=== PATIENT | male | born 1970 | race American Indian/Alaskan Native ===

== ENCOUNTER 2018-01-12 13:37 | Emergency (ER) | payer SELFPAY ==
[2018-01-12 13:47] VITALS: BP 158/78
[2018-01-12 15:15] LABS: Basophils # (Auto) 0.1 K/mm3 (0.0-0.1); Basophils % (Auto) 1.5 % (0.0-1.8); Eosinophils # (Auto) 0.1 K/mm3 (0.0-0.4); Eosinophils % (Auto) 2.4 % (0.0-4.3); Hematocrit 24.2 % (35.5-45.6); Hemoglobin 8.2 gm/dl (11.8-15.2); Lymphocytes # (Auto) 1.6 K/mm3 (1.2-5.4); Lymphocytes % (Auto) 24.8 % (13.4-35.0); Mean Corpuscular HGB Conc 34 % (32-34); Mean Corpuscular Hemoglobin 35 pg (28-32); Mean Corpuscular Volume 102 fl (84-94); Monocytes # (Auto) 0.5 K/mm3 (0.0-0.8); Monocytes % (Auto) 7.9 % (0.0-7.3); Platelet Count 253 K/mm3 (140-440); Red Blood Count 2.37 M/mm3 (3.65-5.03); Red Cell Distribution Width 13.3 % (13.2-15.2)
--- NOTE | 2018-01-12 15:16 | Emergency Department Report ---
HPI - General Chief Complaint: Abdominal Pain Time Seen by Provider: 01/12/18 14:46 - HPI HPI: Patient is a 47-year-old male with a history of hypertension controlled with lisinopril daily who presents to ED complaining of upper abdominal pain 2 weeks. Patient's face and describes pain as a nagging-type pain. Patient states he has also been having loose tarry stools, nonbloody tests of the week ago. Patient states he has no appetite and he gets full just as soon as he starts eating. Patient states he got some relief with [facility] for several hours. He denies fever service shows/chest pain/shortness of breath/dizziness/recent unusual foods. ED Past Medical Hx - Past Medical History Hx Hypertension: Yes - Surgical History Past Surgical History?: No - Social History Smoking Status: Current Every Day Smoker Substance Use Type: None - Medications Home Medications: Home Medications Medication Instructions Recorded Confirmed Last Taken Type HYDROcodone/APAP 5-325 [[place] 2 each PO Q6HR PRN #20 tablet 08/08/14 Unknown Rx 5/325] Lisinopril [Zestril TAB] 20 mg PO QDAY #30 tablet 08/08/14 Unknown Rx Acetaminophen/Codeine [Tylenol 1 tab PO Q6H #10 tab 01/12/18 Unknown Rx /Codeine # 3 tab] Ondansetron [Zofran Odt] 8 mg PO BID #24 tab.rapdis 01/12/18 Unknown Rx ED Review of Systems ROS: Stated complaint: ABD PAIN Other details as noted in HPI Constitutional: denies: chills, fever Eyes: denies: eye pain, eye discharge, vision change ENT: denies: ear pain, throat pain Respiratory: denies: cough, shortness of breath, wheezing Cardiovascular: denies: chest pain, palpitations Endocrine: no symptoms reported Gastrointestinal: nausea, diarrhea. denies: abdominal pain, constipation, hematemesis, hematochezia Genitourinary: denies: urgency, dysuria Musculoskeletal: denies: back pain, joint swelling, arthralgia Skin: denies: rash, lesions Neurological: denies: headache, weakness, paresthesias Psychiatric: denies: anxiety, depression Hematological/Lymphatic: denies: easy bleeding, easy bruising Physical Exam - Physical Exam Vital Signs: Vital Signs 01/12/18 13:45 Temperature 97.9 F Pulse Rate 98 H Respiratory 16 Rate Blood Pressure 158/78 O2 Sat by Pulse 100 Oximetry Physical Exam: GENERAL: Alert and oriented x3, no apparent distress, Normal Gait, atraumatic. HEAD: Head is normocephalic and a-traumatic. MOUTH:Mouth is well hydrated and without lesions. Tonsils nonerythematous or swollen, Uvula midline, Tongue not elevated. Mucous membranes are moist. Posterior pharynx clear, no exudate or lesions. Patent airways. LUNGS: Symetrical with respiration, No wheezing, no rales or crackles, CTAB. HEART: S1, S2 present, regular rate and rhythm without murmur, no rubs, no gallops. Non tender to palpation ABDOMEN: No organomegaly was noted,Positive bowel sounds, soft, and non- distended. Nontender to palpation on all Quadrants, NO CVA tenderness. SKIN: Warm and dry, No lesions, No ulceration or induration present. ED Course Vital Signs 01/12/18 13:45 Temperature 97.9 F Pulse Rate 98 H Respiratory 16 Rate Blood Pressure 158/78 O2 Sat by Pulse 100 Oximetry ED Medical Decision Making - Lab Data Result diagrams: 01/12/18 15:00 01/12/18 15:00 - Radiology Data Radiology results: report reviewed, image reviewed FINAL REPORT EXAM: CT ABDOMEN PELVIS WO CON HISTORY: abd pain COMPARISON: None. TECHNIQUE: Multiple contiguous axial images were obtained from the lung bases to the pubic symphysis without administration of IV contrast. Reformatted sagittal and coronal images were available for review. FINDINGS: Lung bases: Calcified granuloma in the left lung base. Visualized heart and mediastinum: Normal noncontrast appearance. Liver: Scattered calcified granulomas. Spleen: Scattered calcified granulomas. Pancreas: Normal noncontrast appearance. Gallbladder and Biliary Tree: No calcified gallstones. No biliary ductal dilatation. Adrenal glands: Normal. Kidneys: 4 millimeter stone within right renal pelvis. Dilatation of the renal collecting system of the inferior pole of the right kidney versus a 4 millimeter right peripelvic cyst. Normal noncontrast appearance of the left kidney. Bladder: Normal. Pelvic organs: Normal. Bowel: No focal wall thickening. No evidence of obstruction. Normal appendix without surrounding inflammatory change. Diverticulosis of the descending and sigmoid colon without evidence of diverticulitis. Peritoneum: No significant mesenteric adenopathy. No free air or free fluid. Vasculature: Abdominal aorta is normal in caliber without evidence of aneurysm. Scattered atherosclerotic calcifications. Normal noncontrast appearance of the portal venous system and the inferior vena cava. Bones and soft tissues: No suspicious osseous lesions. No acute fracture or dislocation. Soft tissues are normal. IMPRESSION: 1. 4 millimeter stone within the right renal pelvis. Associated dilatation of the renal collecting system of the inferior pole of the right kidney versus less likely right peripelvic cyst. 2. Diverticulosis of the descending and sigmoid colon without evidence of diverticulitis. Transcribed By: ALVIN Dictated By: FALGUNI CABELLO MD Electronically Authenticated By: FALGUNI CABELLO MD Signed Date/Time: 01/12/18 7977 - Medical Decision Making 47-year-old male presents with kidney stones/ ED course: Patient received labs during his ED stay. Labs are within normal limits, slightly elevated and BUN and creatinine otherwise normal results CT scan shows abnormality, see reported above. I discussed his findings with the patient. Patient is well-nourished, he is in no acute or respiratory distress. He reports feeling slightly better. He had no episodes of vomiting in the ED. Discussed patient to follow up with primary care physician as well as GI I discussed the patient's symptoms worsen to return to ED - Differential Diagnosis 1. GERD, 2. Gastritis, 3. Kidney stone 4. Gastroenteritis Critical care attestation.: If time is entered above; I have spent that time in minutes in the direct care of this critically ill patient, excluding procedure time. ED Disposition Clinical Impression: Kidney stone Diverticulosis Qualifiers: Diverticulosis site: diverticulosis of large intestine Disposition: DC-01 TO HOME OR SELFCARE Is pt being admited?: No Does the pt Need Aspirin: No Condition: Stable Instructions: Diverticulosis (ED), Kidney Stones (ED), Diverticulosis Diet (ED) , Flank Pain (ED) Additional Instructions: Follow-up way to [facility] He had been giving [facility] referral. Call and make an appointment to be seen by a hotel front desk agent Take medications as prescribed. If worsening of his symptoms was turned to ED. Prescriptions: Acetaminophen/Codeine [Tylenol /Codeine # 3 tab] 1 tab PO Q6H #10 tab Ondansetron [Zofran Odt] 8 mg PO BID #24 tab.rapdis Referrals: [facility] [Outside] - 3-5 Days [facility] [Outside] - 3-5 Days [facility] [Outside] - 3-5 Days [facility] [Outside] - 3-5 Days Forms: Accompanied Note, Work/School Release Form(ED) Time of Disposition: 17:31
[2018-01-12 15:37] LABS: Albumin 3.7 g/dL (3.9-5)
--- NOTE | 2018-01-12 16:17 | Cat Scan Report ---
FINAL REPORT EXAM: CT ABDOMEN PELVIS WO CON HISTORY: abd pain COMPARISON: None. TECHNIQUE: Multiple contiguous axial images were obtained from the lung bases to the pubic symphysis without administration of IV contrast. Reformatted sagittal and coronal images were available for review. FINDINGS: Lung bases: Calcified granuloma in the left lung base. Visualized heart and mediastinum: Normal noncontrast appearance. Liver: Scattered calcified granulomas. Spleen: Scattered calcified granulomas. Pancreas: Normal noncontrast appearance. Gallbladder and Biliary Tree: No calcified gallstones. No biliary ductal dilatation. Adrenal glands: Normal. Kidneys: 4 millimeter stone within right renal pelvis. Dilatation of the renal collecting system of the inferior pole of the right kidney versus a 4 millimeter right peripelvic cyst. Normal noncontrast appearance of the left kidney. Bladder: Normal. Pelvic organs: Normal. Bowel: No focal wall thickening. No evidence of obstruction. Normal appendix without surrounding inflammatory change. Diverticulosis of the descending and sigmoid colon without evidence of diverticulitis. Peritoneum: No significant mesenteric adenopathy. No free air or free fluid. Vasculature: Abdominal aorta is normal in caliber without evidence of aneurysm. Scattered atherosclerotic calcifications. Normal noncontrast appearance of the portal venous system and the inferior vena cava. Bones and soft tissues: No suspicious osseous lesions. No acute fracture or dislocation. Soft tissues are normal. IMPRESSION: 1. 4 millimeter stone within the right renal pelvis. Associated dilatation of the renal collecting system of the inferior pole of the right kidney versus less likely right peripelvic cyst. 2. Diverticulosis of the descending and sigmoid colon without evidence of diverticulitis.
[2018-01-12 16:34] LABS: Amorphous Crystals,Urine Few; Bilirubin,Urine NEG (Negative); Blood,Urine SM (Negative); Color,Urine Yellow (Yellow); Mucus,Urine FEW /HPF; Protein,Urine >500 mg/dL (Negative); Urobilinogen,Urine < 2.0 mg/dL (<2.0)
== END 2018-01-12 18:25 | disposition home or self-care (01) ==
LOC: ED 13:37
DX: K57.90 Diverticulosis of intestine, part unspecified, without perforation or abscess without bleeding (principal); N20.0 Calculus of kidney; I10 Essential (primary) hypertension; F17.200 Nicotine dependence, unspecified, uncomplicated
CPT/HCPCS: 36415; 74176; 80053; 81001; 85025; 99284

== ENCOUNTER 2019-02-04 07:26 | Emergency (ER) | payer MEDICARE ==
[2019-02-04 07:40] VITALS: BP 141/77
[2019-02-04 08:01] LABS: Basophils # (Auto) 0.1 K/mm3 (0.0-0.1); Basophils % (Auto) 2.4 % (0.0-1.8); Eosinophils % (Auto) 1.1 % (0.0-4.3); Hematocrit 34.7 % (35.5-45.6); Hemoglobin 11.9 gm/dl (11.8-15.2); Lymphocytes # (Auto) 1.8 K/mm3 (1.2-5.4); Lymphocytes % (Auto) 44.3 % (13.4-35.0); Mean Corpuscular HGB Conc 34 % (32-34); Mean Corpuscular Volume 104 fl (84-94); Monocytes # (Auto) 0.3 K/mm3 (0.0-0.8); Monocytes % (Auto) 7.7 % (0.0-7.3); Platelet Count 172 K/mm3 (140-440); Red Blood Count 3.34 M/mm3 (3.65-5.03)
[2019-02-04 08:24] LABS: Albumin 4.5 g/dL (3.9-5)
--- NOTE | 2019-02-04 08:39 | Emergency Department Report ---
ED General Adult HPI - General Chief complaint: Weakness Stated complaint: GENERAL ILLNESS,RT SIDE PAIN Time Seen by Provider: 02/04/19 08:17 Source: patient, EMS Mode of arrival: Stretcher Limitations: No Limitations - History of Present Illness Initial comments: Mr Escobar is a pleasant 48-year-old -[place] male who comes to the ER today from his dialysis clinic. He presented to dialysis but told them of a fall yesterday so they sent him to the ER. He's complaining of right shoulder pain. He denies fever, chills, chest pain, abd pain. He was ambulatory to ER and it has been 24 hours since fall. He states that he did not have any signs of illness prior to the fall. But since he fell he is associating some nausea with the fall. Pt did not get HD this AM- last HD on Friday. He has been on HD 1 year and states he does follow the renal diet. He has had weight loss since going on HD. I suspect his nausea is related to his ESRD. On exam he had been in ER for over 1 h and has had no vomiting. At time of fall he did not hit his head. Fall was witnessed. He was attempting to turn to switch on in the attic for the heater when the ceiling that he was on fell. Patient states that he fell about 6 feet landing on his right shoulder. He has full range of motion, is ambulatory and vital signs are stable. He states that he is really just concerned that he hurt his AV fistula which is in the right arm. - Related Data Home Medications Medication Instructions Recorded Confirmed Last Taken amLODIPine 10 mg PO DAILY 01/22/18 01/22/18 Unknown hydroCHLOROthiazide [HCTZ] 25 mg PO QDAY 01/22/18 01/22/18 Unknown Previous Rx's Medication Instructions Recorded Last Taken Type Lisinopril [Zestril TAB] 20 mg PO QDAY #30 tablet 08/08/14 Unknown Rx Calcium Acetate [Phoslo] 1,334 mg PO TIDWM #60 capsule 01/28/18 Unknown Rx Nicotine [Habitrol] 21 mg TD DAILY #30 patch 01/28/18 Unknown Rx Pantoprazole [Protonix TAB] 40 mg PO BID #60 tablet 01/28/18 Unknown Rx hydrALAZINE [Apresoline TAB] 50 mg PO Q8HR #90 tablet 01/28/18 Unknown Rx Allergies Allergy/AdvReac Type Severity Reaction Status Date / Time No Known Allergies Allergy Verified 01/12/18 13:45 ED Review of Systems ROS: Stated complaint: GENERAL ILLNESS,RT SIDE PAIN Other details as noted in HPI Comment: All other systems reviewed and negative ED Past Medical Hx - Past Medical History Previous Medical History?: Yes Hx Hypertension: Yes Hx CVA: No Hx Heart Attack/AMI: No Hx Congestive Heart Failure: No Hx Diabetes: No Hx Deep Vein Thrombosis: No Hx Pulmonary Embolism: No Hx GERD: Yes Hx Liver Disease: No Hx Renal Disease: Yes (ARF-HD 2017) Hx of Cancer: No Hx Sickle Cell Disease: No Hx Arthritis: No Hx Headaches / Migraines: No Hx Seizures: No Hx Kidney Stones: No Hx Psychiatric Treatment: No Hx Asthma: No Hx COPD: No Hx Tuberculosis: No Hx Dementia: No Hx HIV: No Additional medical history: sleep apnea, diverticulitis - Surgical History Past Surgical History?: Yes Additional Surgical History: fistula right upper arm - Family History Family history: no significant - Social History Smoking Status: Current Every Day Smoker Substance Use Type: None - Medications Home Medications: Home Medications Medication Instructions Recorded Confirmed Last Taken Type Lisinopril [Zestril TAB] 20 mg PO QDAY #30 tablet 08/08/14 01/22/18 Unknown Rx amLODIPine 10 mg PO DAILY 01/22/18 01/22/18 Unknown History hydroCHLOROthiazide [HCTZ] 25 mg PO QDAY 01/22/18 01/22/18 Unknown History Calcium Acetate [Phoslo] 1,334 mg PO TIDWM #60 capsule 01/28/18 Unknown Rx Nicotine [Habitrol] 21 mg TD DAILY #30 patch 01/28/18 Unknown Rx Pantoprazole [Protonix TAB] 40 mg PO BID #60 tablet 01/28/18 Unknown Rx hydrALAZINE [Apresoline TAB] 50 mg PO Q8HR #90 tablet 01/28/18 Unknown Rx ED Physical Exam - General Limitations: No Limitations General appearance: alert, in no apparent distress - Head Head exam: Present: atraumatic, normocephalic - Eye Eye exam: Present: normal appearance - ENT ENT exam: Present: mucous membranes moist - Neck Neck exam: Present: normal inspection - Respiratory Respiratory exam: Present: normal lung sounds bilaterally. Absent: respiratory distress - Cardiovascular Cardiovascular Exam: Present: regular rate, normal rhythm, other (no edema/no jvd). Absent: bradycardia, tachycardia, systolic murmur, diastolic murmur, rubs, gallop, S4 - GI/Abdominal GI/Abdominal exam: Present: soft, normal bowel sounds. Absent: distended, tenderness, guarding, rebound, rigid, diminished bowel sounds, hyperactive bowel sounds, hypoactive bowel sounds - Rectal Rectal exam: Present: deferred - Extremities Exam Extremities exam: Present: normal inspection - Back Exam Back exam: Present: normal inspection, full ROM, other (no spine tenderness) - Neurological Exam Neurological exam: Present: alert, oriented X3, CN II-XII intact, normal gait - Psychiatric Psychiatric exam: Present: normal affect, normal mood - Skin Skin exam: Present: warm, dry, intact, normal color, other (RA fistula, mature, with thrill and bruit). Absent: rash ED Course Vital Signs 02/04/19 02/04/19 07:34 07:37 Temperature 98.5 F 98.4 F Pulse Rate 67 67 Respiratory 17 18 Rate Blood Pressure 141/77 141/77 O2 Sat by Pulse 94 94 Oximetry - Reevaluation(s) Reevaluation #1: 02/04/19 0845 on re-exam pt sleeping 0910 VSS no n/v while in ED Reevaluation #2: 02/04/19 09:21 no complaints dc to HD ED Medical Decision Making - Lab Data Result diagrams: 02/04/19 07:51 02/04/19 07:51 - Radiology Data Radiology results: report reviewed, image reviewed - Medical Decision Making Vital Signs 02/04/19 02/04/19 07:34 07:37 Temperature 98.5 F 98.4 F Pulse Rate 67 67 Respiratory 17 18 Rate Blood Pressure 141/77 141/77 O2 Sat by Pulse 94 94 Oximetry Lab Results 02/04/19 02/04/19 Range/Units 07:51 07:51 WBC 4.1 L (4.5-11.0) K/mm3 RBC 3.34 L (3.65-5.03) M/mm3 Hgb 11.9 (11.8-15.2) gm/dl Hct 34.7 L (35.5-45.6) % MCV 104 H (84-94) fl MCH 36 H (28-32) pg MCHC 34 (32-34) % RDW 14.0 (13.2-15.2) % Plt Count 172 (140-440) K/mm3 Lymph % (Auto) 44.3 H (13.4-35.0) % Gilliam % (Auto) 7.7 H (0.0-7.3) % Eos % (Auto) 1.1 (0.0-4.3) % Baso % (Auto) 2.4 H (0.0-1.8) % Lymph # 1.8 (1.2-5.4) K/mm3 Gilliam # 0.3 (0.0-0.8) K/mm3 Eos # 0.0 (0.0-0.4) K/mm3 Baso # 0.1 (0.0-0.1) K/mm3 Seg Neutrophils % 44.5 (40.0-70.0) % Seg Neutrophils # 1.8 (1.8-7.7) K/mm3 Sodium 139 (137-145) mmol/L Potassium 3.5 L (3.6-5.0) mmol/L Chloride 94.4 L (98-107) mmol/L Carbon Dioxide 23 (22-30) mmol/L Anion Gap 25 mmol/L BUN 49 H (9-20) mg/dL Creatinine 12.3 H (0.8-1.5) mg/dL Estimated GFR 5 ml/min BUN/Creatinine Ratio 4 % Glucose 91 (75-100) mg/dL Calcium 10.0 (8.4-10.2) mg/dL Total Bilirubin 0.40 (0.1-1.2) mg/dL AST 15 (5-40) units/L ALT 9 (7-56) units/L Alkaline Phosphatase 33 L (35-129) units/L Total Protein 8.2 (6.3-8.2) g/dL Albumin 4.5 (3.9-5) g/dL Albumin/Globulin Ratio 1.2 % HD clinic sent pt to ER secondary to his fall yesterday and his co ra pain. Full ROM arm AV fistula with thrill and bruit; distal pulses plus 2 No edema/jvd BP normal/ no tachycardia Pt can get HD today p seen in ER. He last had HD on Friday. labs noted discussed with pt role of his diet and his nausea- I suspect the uremia and elevated Cr are the source of nausea. Pt will discuss his clearance with HD clinic today. Pt given tylenol for shoulder soreness [address] Mitchell Pt will be dc to HD clinic for his HD. He will follow up with renal MD and PCP. Pt reassured AV fistula is ok. Pt verbalizes understanding of dc plan of care and follow up. - Differential Diagnosis ro shoulder injury; eval cr/K Critical care attestation.: If time is entered above; I have spent that time in minutes in the direct care of this critically ill patient, excluding procedure time. ED Disposition Clinical Impression: ESRD (end stage renal disease) on dialysis, Fall, Shoulder pain, Uremia Disposition: DC-01 TO HOME OR SELFCARE Is pt being admited?: No Does the pt Need Aspirin: No Condition: Stable Instructions: Chronic Kidney Disease (ED) Additional Instructions: GO TO HD CLINIC FOR YOUR TREATMENT XRAY SHOULDER NORMAL FOLLOW UP WITH KIDNEY MED REGARDING NAUSEA RENAL DIET CONTINUE HOME MEDS Referrals: [facility] [Outside] - 3-5 Days Time of Disposition: 08:53
[2019-02-04] MEDS ORDERED: ACETAMINOPHEN 500 MG TAB PO ONE (08:58)
--- NOTE | 2019-02-04 09:15 | XRay Report ---
RIGHT SHOULDER, 3 VIEWS INDICATION: pain sp fall. COMPARISON: None. IMPRESSION: No acute osseous or soft tissue abnormality. Mild osteoarthritic changes are identifi ed at the AC joint and glenohumeral joint. Signer Name: Nathan Handy Jr, MD Signed: 02/04/2019 9:11 AM Workstation Name: [id number]
== END 2019-02-04 09:30 | disposition home or self-care (01) ==
LOC: ED 07:26
DX: I12.0 Hypertensive chronic kidney disease with stage 5 chronic kidney disease or end stage renal disease (principal); N18.6 End stage renal disease; M25.511 Pain in right shoulder; Z99.2 Dependence on renal dialysis; K21.9 Gastro-esophageal reflux disease without esophagitis; G47.30 Sleep apnea, unspecified; F17.200 Nicotine dependence, unspecified, uncomplicated; Z79.899 Other long term (current) drug therapy
CPT/HCPCS: 36415; 80053; 85025; 99284

== ENCOUNTER 2019-03-10 19:09 | Emergency (ER) | payer MEDICARE ==
[2019-03-10 19:45] VITALS: BP 175/85
--- NOTE | 2019-03-10 19:48 | Emergency Department Report ---
Blank Doc - Documentation Documentation: 48-year-old male that presents with URI/Flu symptoms. This initial assessment/diagnostic orders/clinical plan/treatment(s) is/are subject to change based on patient's health status, clinical progression and re- assessment by fellow clinical providers in the ED. Further treatment and workup at subsequent clinical providers discretion. Patient/guardians urged not to elope from the ED as their condition may be serious if not clinically assessed and managed. Initial orders include: 1- Patient sent to [facility] for further evaluation and treatment 2- cxr 3- flu swab
--- NOTE | 2019-03-10 21:02 | XRay Report ---
CHEST 1 VIEW 1808 INDICATION / CLINICAL INFORMATION: cough. COMPARISON: 01/26/2018 FINDINGS: SUPPORT DEVICES: None HEART / MEDIASTINUM: No significant abnormality. LUNGS / PLEURA: No significant pulmonary or pleural abnormality. No pneumothorax. ADDITIONAL FINDINGS: No significant additional findings. IMPRESSION: No significant acute abnormality Signer Name: Bishop Gooden MD Signed: 03/10/2019 8:57 PM Workstation Name: [id number]
[2019-03-11] MEDS ORDERED: ONDANSETRON 4 MG ODT TAB PO ONE (01:01)
[2019-03-11] MEDS ORDERED: IBUPROFEN 800 MG TAB PO ONE (01:01)
--- NOTE | 2019-03-11 02:07 | Emergency Department Report ---
- General Chief Complaint: Upper Respiratory Infection Stated Complaint: HURTING ALL OVER Time Seen by Provider: 03/10/19 19:47 Source: patient Mode of arrival: Wheelchair Limitations: No Limitations - History of Present Illness Initial Comments: Mr. Escobar is a 48-year-old -British male who presents for cough, bodyaches ,fever, sore throat 2 days. pt has hx of GERD, HTN, and Renal disease. who presents for flu like symptoms MD Complaint: fever, cough, sore throat, rhinorrhea, nasal congestion, sinus pain Onset/Timin -: days(s) Severity: moderate Severity scale (0 -10): 4 Quality: aching Consistency: constant - Related Data Home Medications Medication Instructions Recorded Confirmed Last Taken amLODIPine 10 mg PO DAILY 01/22/18 01/22/18 Unknown hydroCHLOROthiazide [HCTZ] 25 mg PO QDAY 01/22/18 01/22/18 Unknown Previous Rx's Medication Instructions Recorded Last Taken Type Lisinopril [Zestril TAB] 20 mg PO QDAY #30 tablet 08/08/14 Unknown Rx Calcium Acetate [Phoslo] 1,334 mg PO TIDWM #60 capsule 01/28/18 Unknown Rx Nicotine [Habitrol] 21 mg TD DAILY #30 patch 01/28/18 Unknown Rx Pantoprazole [Protonix TAB] 40 mg PO BID #60 tablet 01/28/18 Unknown Rx hydrALAZINE [Apresoline TAB] 50 mg PO Q8HR #90 tablet 01/28/18 Unknown Rx traMADoL [Ultram 50 MG tab] 50 mg PO Q6HR PRN #12 tablet 02/22/19 Unknown Rx ALBUTEROL Inhaler (OR & NICU) 2 puff IH QID PRN #1 each 03/11/19 Unknown Rx [ProAir HFA Inhaler] Azithromycin [Zithromax Z-CASTILLO] 250 mg PO DAILY #6 tab 03/11/19 Unknown Rx Benzonatate [Tessalon Perles] 100 mg PO Q8HR PRN #30 capsule 03/11/19 Unknown Rx Ibuprofen [Motrin 800 MG tab] 800 mg PO Q8HR PRN #30 tablet 03/11/19 Unknown Rx Allergies Allergy/AdvReac Type Severity Reaction Status Date / Time No Known Allergies Allergy Verified 01/12/18 13:45 ED Review of Systems ROS: Stated complaint: HURTING ALL OVER Other details as noted in HPI Constitutional: see HPI, fever, malaise Eyes: denies: eye pain, eye discharge, vision change ENT: ear pain, throat pain Respiratory: cough. denies: shortness of breath, wheezing Cardiovascular: denies: chest pain, palpitations Endocrine: no symptoms reported Gastrointestinal: denies: abdominal pain, nausea, diarrhea Genitourinary: denies: urgency, dysuria Musculoskeletal: denies: back pain, joint swelling, arthralgia Skin: denies: rash, lesions Neurological: denies: headache, weakness, paresthesias Psychiatric: denies: anxiety, depression Hematological/Lymphatic: denies: easy bleeding, easy bruising, swollen glands ED Past Medical Hx - Past Medical History Hx Hypertension: Yes Hx CVA: No Hx Heart Attack/AMI: No Hx Congestive Heart Failure: No Hx Diabetes: No Hx Deep Vein Thrombosis: No Hx Pulmonary Embolism: No Hx GERD: Yes Hx Liver Disease: No Hx Renal Disease: Yes (ARF-HD 2017,,Fri) Hx Sickle Cell Disease: No Hx Arthritis: No Hx Headaches / Migraines: No Hx Seizures: No Hx Kidney Stones: No Hx Psychiatric Treatment: No Hx Asthma: No Hx COPD: No Hx Tuberculosis: No Hx Dementia: No Hx HIV: No Additional medical history: sleep apnea, diverticulitis - Surgical History Additional Surgical History: fistula right upper arm - Social History Smoking Status: Never Smoker Substance Use Type: None - Medications Home Medications: Home Medications Medication Instructions Recorded Confirmed Last Taken Type Lisinopril [Zestril TAB] 20 mg PO QDAY #30 tablet 08/08/14 01/22/18 Unknown Rx amLODIPine 10 mg PO DAILY 01/22/18 01/22/18 Unknown History hydroCHLOROthiazide [HCTZ] 25 mg PO QDAY 01/22/18 01/22/18 Unknown History Calcium Acetate [Phoslo] 1,334 mg PO TIDWM #60 capsule 01/28/18 Unknown Rx Nicotine [Habitrol] 21 mg TD DAILY #30 patch 01/28/18 Unknown Rx Pantoprazole [Protonix TAB] 40 mg PO BID #60 tablet 01/28/18 Unknown Rx hydrALAZINE [Apresoline TAB] 50 mg PO Q8HR #90 tablet 01/28/18 Unknown Rx traMADoL [Ultram 50 MG tab] 50 mg PO Q6HR PRN #12 tablet 02/22/19 Unknown Rx ALBUTEROL Inhaler (OR & NICU) 2 puff IH QID PRN #1 each 03/11/19 Unknown Rx [ProAir HFA Inhaler] Azithromycin [Zithromax Z-CASTILLO] 250 mg PO DAILY #6 tab 03/11/19 Unknown Rx Benzonatate [Tessalon Perles] 100 mg PO Q8HR PRN #30 capsule 03/11/19 Unknown Rx Ibuprofen [Motrin 800 MG tab] 800 mg PO Q8HR PRN #30 tablet 03/11/19 Unknown Rx ED Physical Exam - General Limitations: No Limitations General appearance: alert, in no apparent distress - Head Head exam: Present: atraumatic, normocephalic - Eye Eye exam: Present: normal appearance, PERRL, EOMI Pupils: Present: normal accommodation - ENT ENT exam: Present: mucous membranes moist - Neck Neck exam: Present: normal inspection - Respiratory Respiratory exam: Present: normal lung sounds bilaterally. Absent: respiratory distress, wheezes, rhonchi, stridor, chest wall tenderness - Cardiovascular Cardiovascular Exam: Present: regular rate, normal rhythm, normal heart sounds. Absent: systolic murmur, diastolic murmur, rubs, gallop - GI/Abdominal GI/Abdominal exam: Present: soft. Absent: distended, tenderness, rebound, bruit - Rectal Rectal exam: Present: deferred - Extremities Exam Extremities exam: Present: normal inspection, full ROM, normal capillary refill. Absent: tenderness - Back Exam Back exam: Present: normal inspection, full ROM. Absent: CVA tenderness (R), CVA tenderness (L), rash noted - Neurological Exam Neurological exam: Present: alert, oriented X3, CN II-XII intact, normal gait, reflexes normal. Absent: motor sensory deficit - Psychiatric Psychiatric exam: Present: normal affect, normal mood - Skin Skin exam: Present: warm, dry, intact, normal color. Absent: rash ED Course Vital Signs 03/10/19 19:43 Temperature 100.2 F H Pulse Rate 99 H Respiratory 18 Rate Blood Pressure 175/85 O2 Sat by Pulse 97 Oximetry ED Medical Decision Making - Radiology Data Radiology results: report reviewed, image reviewed Ordering Physician: NIKHIL PEREZ NP Date of Service: 03/10/19 Procedure(s): XR chest 1V ap Accession Number(s): [id number] cc: NIKHIL PEREZ NP Fluoro Time In Minutes: CHEST 1 VIEW 1808 INDICATION / CLINICAL INFORMATION: cough. COMPARISON: 01/26/2018 FINDINGS: SUPPORT DEVICES: None HEART / MEDIASTINUM: No significant abnormality. LUNGS / PLEURA: No significant pulmonary or pleural abnormality. No pneumothorax. ADDITIONAL FINDINGS: No significant additional findings. IMPRESSION: No significant acute abnormality Signer Name: Bishop Gooden MD Signed: 03/10/2019 8:57 PM Workstation Name: [id number] Transcribed By: BRI Dictated By: Bishop Gooden MD Electronically Authenticated By: Bishop Gooden MD Signed Date/Time: 03/10/192056 DD/ 55 TD/TT: - Medical Decision Making this is a URI, , fever improved, cxr: normal no infiltrates no infiltrates, plan: ibuprofen, albuterol, Tessalon pearls, azithromycin, follow up wth pcp in 2-23 days , return to emergency if symptoms worsen. Critical care attestation.: If time is entered above; I have spent that time in minutes in the direct care of this critically ill patient, excluding procedure time. ED Disposition Clinical Impression: URI (upper respiratory infection) Qualifiers: URI type: unspecified viral URI Qualified Code(s): J06.9 - Acute upper respiratory infection, unspecified Disposition: DC-01 TO HOME OR SELFCARE Is pt being admited?: No Does the pt Need Aspirin: No Condition: Stable Instructions: Upper Respiratory Infection (ED), Acute Bronchitis (ED) Prescriptions: Ibuprofen [Motrin 800 MG tab] 800 mg PO Q8HR PRN #30 tablet PRN Reason: pain fever ALBUTEROL Inhaler (OR & NICU) [ProAir HFA Inhaler] 2 puff IH QID PRN #1 each PRN Reason: Shortness Of Breath Benzonatate [Tessalon Perles] 100 mg PO Q8HR PRN #30 capsule PRN Reason: Cough Azithromycin [Zithromax Z-CASTILLO] 250 mg PO DAILY #6 tab Referrals: PRIMARY CARE, [Primary Care Provider] - 3-5 Days Forms: Work/School Release Form(ED) Time of Disposition: 02:49
== END 2019-03-11 03:13 | disposition home or self-care (01) ==
LOC: ED 19:09
DX: J06.9 Acute upper respiratory infection, unspecified (principal); I10 Essential (primary) hypertension; K21.9 Gastro-esophageal reflux disease without esophagitis; Z79.899 Other long term (current) drug therapy
CPT/HCPCS: 71045; Q0162

== ENCOUNTER 2019-03-15 13:53 | Emergency (ER) | payer MEDICARE | END 2019-03-15 19:34 | disposition home or self-care (01) | LOC: ED 13:53 | CPT/HCPCS: 36415; 80053; 82140; 85025; 87040 ==

== ENCOUNTER 2020-07-22 13:59 | Inpatient (IN) | payer MEDICARE ==
[2020-07-22] MEDS ORDERED: SODIUM CHLORIDE 0.9% 1000 ML IV SOLN IV ONE (15:17)
[2020-07-22] MEDS ORDERED: ACETAMINOPHEN 325 MG TAB PO PRN ×2 (15:17→16:52)
[2020-07-22 15:44] LABS: Basophils % (Auto) 0.6 % (0.0-1.8); Eosinophils % (Auto) 0.1 % (0.0-4.3); Hematocrit 35.4 % (35.5-45.6); Hemoglobin 12.3 gm/dl (11.8-15.2); Lymphocytes # (Auto) 0.3 K/mm3 (1.2-5.4); Lymphocytes % (Auto) 4.6 % (13.4-35.0); Mean Corpuscular HGB Conc 35 % (32-34); Mean Corpuscular Volume 104 fl (84-94); Monocytes # (Auto) 0.5 K/mm3 (0.0-0.8); Monocytes % (Auto) 8.6 % (0.0-7.3); Platelet Count 84 K/mm3 (140-440); Red Blood Count 3.42 M/mm3 (3.65-5.03); Red Cell Distribution Width 15.6 % (13.2-15.2)
[2020-07-22] MEDS ORDERED: cefTRIAXone/NS 2 GM/100 ML 2 GM/100 ML BAG IV SCH ×2 (16:00→17:00)
--- NOTE | 2020-07-22 16:02 | XRay Report ---
CHEST 2 VIEWS INDICATION / CLINICAL INFORMATION: sepsis. COMPARISON: 03/10/2019 FINDINGS: SUPPORT DEVICES: None. HEART / MEDIASTINUM: No significant abnormality. LUNGS / PLEURA: Increased opacity in the right lower lung. No pneumothorax. ADDITIONAL FINDINGS: No significant additional findings. IMPRESSION: 1. Right lower lung infiltrate. Signer Name: Lawrence Rubio MD Signed: 07/22/2020 3:57 PM Workstation Name: [id number]
[2020-07-22 16:08] LABS: Albumin 3.6 g/dL (3.9-5); Calcium 8.9 mg/dL (8.4-10.2)
[2020-07-22 16:36] LABS: Chol/HDL Ratio 2.42 %
[2020-07-22] MEDS ORDERED: AZITHROMYCIN/NS 500 MG/250 ML 500 MG/250 ML BAG IV ONE (16:38)
[2020-07-22] MEDS: ONDANSETRON 4 MG/2 ML INJ IV ONE ×2 (16:40→17:21)
--- NOTE | 2020-07-22 16:45 | Emergency Department Report ---
ED General Adult HPI - General Chief complaint: Fever Stated complaint: DEHYDRATED PUI?: Yes Time Seen by Provider: 07/22/20 16:25 Source: patient, RN notes reviewed, old records reviewed Mode of arrival: Ambulatory Limitations: No Limitations - History of Present Illness Initial comments: The patient was evaluated in the emergency department for symptoms described in the history of present illness. He/she was evaluated in the context of the global COVID-19 pandemic, which necessitated consideration that the patient might be at risk for infection with the virus that causes COVID-19. Institutional protocols and algorithms that pertain to the evaluation of patients at risk for COVID-19 are in a state of rapid change based on information released by regulatory bodies including the CDC and federal and state organizations. These policies and algorithms were followed during the patient's care in the emergency department. Please note that these policies, procedures and recommendations changed on a rapid basis. During the entire history and physical examination, I had on complete personal protective equipment. Primary CARE doctor: Dr Zainab Payan Nephrology: Dr Janie Mckay Past medical history: End-stage renal disease, on hemodialysis, Friday, , Friday. Hypertension. 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 The patient is a 50-year-old gentleman. He presents to the ER today with a complaint of weakness, malaise, fatigue, feeling like he is lethargic. He endorses nausea and vomiting. Mild shortness of breath. Denies headache, neck pain, chest pain. Has abdominal cramping from nausea and vomiting. Has had a few episodes of diarrhea. No dysuria. Positive body aches. No loss of taste or smell. No exposure to Covid positive individuals that he is aware of. Also reports that he received 2 COVID-19 vaccinations. He went to hemodialysis earlier on today and reports a complete session. He also reports that he was seen at another hospital last night, and discharged, he is not quite sure what his discharge diagnosis is. -: Gradual, days(s) Location: abdomen Quality: aching Consistency: intermittent Improves with: rest Worsens with: none - Related Data Home Medications Medication Instructions Recorded Confirmed Last Taken amLODIPine 10 mg PO DAILY 01/22/18 01/22/18 Unknown hydroCHLOROthiazide [HCTZ] 25 mg PO QDAY 01/22/18 01/22/18 Unknown Previous Rx's Medication Instructions Recorded Last Taken Type lisinopriL [Zestril TAB] 20 mg PO QDAY #30 tablet 08/08/14 Unknown Rx Calcium Acetate [Phoslo] 1,334 mg PO TIDWM #60 capsule 01/28/18 Unknown Rx Nicotine [Habitrol] 21 mg TD DAILY #30 patch 01/28/18 Unknown Rx Pantoprazole [Protonix TAB] 40 mg PO BID #60 tablet 01/28/18 Unknown Rx hydrALAZINE [Apresoline TAB] 50 mg PO Q8HR #90 tablet 01/28/18 Unknown Rx traMADoL [Ultram 50 MG tab] 50 mg PO Q6HR PRN #12 tablet 02/22/19 Unknown Rx Albuterol Mdi (or & Nicu Only) 2 puff IH QID PRN #1 each 03/11/19 Unknown Rx [ProAir HFA Inhaler] Azithromycin [Zithromax Z-CASTILLO] 250 mg PO DAILY #6 tab 03/11/19 Unknown Rx Benzonatate [Tessalon Perles] 100 mg PO Q8HR PRN #30 capsule 03/11/19 Unknown Rx Ibuprofen [Motrin 800 MG tab] 800 mg PO Q8HR PRN #30 tablet 03/11/19 Unknown Rx Capsaicin 0.075% [Zostrix Hp 1 applicatio TP TID PRN #1 tube 10/30/19 Unknown Rx 0.075%] traMADoL [Ultram] 50 mg PO Q6HR PRN #12 tablet 10/30/19 Unknown Rx Allergies Allergy/AdvReac Type Severity Reaction Status Date / Time No Known Allergies Allergy Verified 10/30/19 11:52 ED Review of Systems ROS: Stated complaint: DEHYDRATED Other details as noted in HPI Constitutional: chills, fever, malaise, weakness, other (Denies loss of taste and smell) ENT: denies: dental pain Respiratory: denies: shortness of breath Cardiovascular: denies: chest pain Gastrointestinal: abdominal pain, nausea, vomiting, diarrhea Genitourinary: denies: dysuria Musculoskeletal: arthralgia, myalgia Neurological: weakness. denies: headache Hematological/Lymphatic: denies: easy bleeding ED Past Medical Hx - Past Medical History Previous Medical History?: Yes Hx Hypertension: Yes Hx CVA: No Hx Heart Attack/AMI: No Hx Congestive Heart Failure: No Hx Diabetes: No Hx Deep Vein Thrombosis: No Hx Pulmonary Embolism: No Hx GERD: Yes Hx Liver Disease: No Hx Renal Disease: Yes (ARF-HD 2018 T,Thur,Sat) Hx Sickle Cell Disease: No Hx Arthritis: No Hx Headaches / Migraines: No Hx Seizures: No Hx Kidney Stones: No Hx Psychiatric Treatment: No Hx Asthma: No Hx COPD: No Hx Tuberculosis: No Hx Dementia: No Hx HIV: No Additional medical history: sleep apnea, diverticulitis - Surgical History Additional Surgical History: fistula right upper arm - Social History Smoking Status: Never Smoker Substance Use Type: None - Medications Home Medications: Home Medications Medication Instructions Recorded Confirmed Last Taken Type lisinopriL [Zestril TAB] 20 mg PO QDAY #30 tablet 08/08/14 01/22/18 Unknown Rx amLODIPine 10 mg PO DAILY 01/22/18 01/22/18 Unknown History hydroCHLOROthiazide [HCTZ] 25 mg PO QDAY 01/22/18 01/22/18 Unknown History Calcium Acetate [Phoslo] 1,334 mg PO TIDWM #60 capsule 01/28/18 Unknown Rx Nicotine [Habitrol] 21 mg TD DAILY #30 patch 01/28/18 Unknown Rx Pantoprazole [Protonix TAB] 40 mg PO BID #60 tablet 01/28/18 Unknown Rx hydrALAZINE [Apresoline TAB] 50 mg PO Q8HR #90 tablet 01/28/18 Unknown Rx traMADoL [Ultram 50 MG tab] 50 mg PO Q6HR PRN #12 tablet 02/22/19 Unknown Rx Albuterol Mdi (or & Nicu Only) 2 puff IH QID PRN #1 each 03/11/19 Unknown Rx [ProAir HFA Inhaler] Azithromycin [Zithromax Z-CASTILLO] 250 mg PO DAILY #6 tab 03/11/19 Unknown Rx Benzonatate [Tessalon Perles] 100 mg PO Q8HR PRN #30 capsule 03/11/19 Unknown Rx Ibuprofen [Motrin 800 MG tab] 800 mg PO Q8HR PRN #30 tablet 03/11/19 Unknown Rx Capsaicin 0.075% [Zostrix Hp 1 applicatio TP TID PRN #1 tube 10/30/19 Unknown Rx 0.075%] traMADoL [Ultram] 50 mg PO Q6HR PRN #12 tablet 10/30/19 Unknown Rx ED Physical Exam - General Limitations: No Limitations General appearance: alert, in no apparent distress - Head Head exam: Present: atraumatic, normocephalic - Eye Eye exam: Present: normal appearance, EOMI. Absent: nystagmus - ENT ENT exam: Present: normal exam, normal orophraynx, mucous membranes moist, normal external ear exam - Neck Neck exam: Present: normal inspection, full ROM. Absent: tenderness, meningismus - Respiratory Respiratory exam: Present: accessory muscle use, other (Pulmonary auscultation not performed secondary to lack of disposable stethoscope). Absent: stridor - Cardiovascular Cardiovascular Exam: Present: other (Cardiac auscultation not performed secondary to lack of disposable stethoscope) - GI/Abdominal GI/Abdominal exam: Present: soft. Absent: distended, tenderness, guarding, rebo und, rigid, pulsatile mass - Rectal Rectal exam: Present: deferred - Extremities Exam Extremities exam: Present: normal inspection (Right upper extremity fistula, without redness, pus or streaking. Appropriate thrill), full ROM, other (2+ pulses noted in the bilateral upper and lower extremities. There is no palpable cord. negative Homans sign. Muscular compartments are soft. The pelvis is stable.). Absent: pedal edema, calf tenderness - Back Exam Back exam: Present: normal inspection. Absent: tenderness, CVA tenderness (R), CVA tenderness (L), paraspinal tenderness, vertebral tenderness - Neurological Exam Neurological exam: Present: alert, normal gait, other (No facial droop. Tongue midline. Extraocular movements intact bilaterally. Facial sensation intact to light touch in V1, V2, V3 distribution bilaterally. 5 and a 5 strength in 4 extremities. Sensation intact to light touch in 4 extremities.). Absent: motor sensory deficit - Psychiatric Psychiatric exam: Present: anxious - Skin Skin exam: Present: warm, dry, intact, normal color. Absent: rash ED Course Vital Signs 07/22/20 15:06 Temperature 102.5 F H Pulse Rate 117 H Respiratory 20 Rate Blood Pressure 158/94 O2 Sat by Pulse 97 Oximetry - Reevaluation(s) Reevaluation #1: 07/22/20 16:45 Differential diagnosis, including but not limited to: Bacteremia, viremia, pneumonia, urinary tract infection, COVID-19 Assessment and plan: 50-year-old gentleman, presenting with sepsis, manifested by fever, tachycardia, has had 2 COVID-19 vaccination status, denies loss of taste and smell, x-ray the chest shows right lower lobe pneumonia, suspect community-acquired pneumonia and sepsis. Patient reports no recent hospitalizations, or antibiotic use. This is patient's second visit to a healthcare institution within 24 hours for similar symptoms, he was discharged yesterday from another hospital, and reports not receiving antibiotics or any particular instructions. When I speak to the patient, O2 sat 92 to 97%. Given fever, tachycardia, relative immune compromise manifest by end-stage renal disease, hypoxia, right lower lobe infiltrate, patient meets criteria for admission and hospitalization. I have discussed this plan of care with the patient, who verbalized understanding, and is amenable to this plan of care. Will be treated according to the sepsis pathway, with IV fluids, Tylenol, pain medication, nausea medication, and appropriate antibiotics. I contacted his private assistance representative, Dr. Mckay, and discussed the patient's history, physical, pertinent laboratory studies and imaging findings, he is in agreement with the plan of care, and will follow from a renal standpoint and arrange hemodialysis. Hospital physician is paged to arrange admission. This is unlikely to be COVID-19, given that patient reports that he was fully vaccinated. However, given potential for clinical overlap, a lack of rapid Covid testing here in this department/hospital, patient will be placed on isolation, and Covid laboratory studies will be ordered. Elevated troponin is likely a type II troponin leak, the patient denies chest pain to myself, and his EKG today appears to be fairly unchanged when compared to prior EKG. Reevaluation #2: 07/22/20 16:52 Hospital physician, Dr. Johnson, to admit to the internal medicine service. ED Medical Decision Making - Lab Data Result diagrams: 07/22/20 15:23 07/22/20 15:23 Vital Signs 07/22/20 15:06 Temperature 102.5 F H Pulse Rate 117 H Respiratory 20 Rate Blood Pressure 158/94 O2 Sat by Pulse 97 Oximetry Lab Results 07/22/20 07/22/20 07/22/20 Range/Units 15:23 15:23 15:23 WBC 5.7 (4.5-11.0) K/mm3 RBC 3.42 L (3.65-5.03) M/mm3 Hgb 12.3 (11.8-15.2) gm/dl Hct 35.4 L (35.5-45.6) % MCV 104 H (84-94) fl MCH 36 H (28-32) pg MCHC 35 H (32-34) % RDW 15.6 H (13.2-15.2) % Plt Count 84 L (140-440) K/mm3 Lymph % (Auto) 4.6 L (13.4-35.0) % Perkins % (Auto) 8.6 H (0.0-7.3) % Eos % (Auto) 0.1 (0.0-4.3) % Baso % (Auto) 0.6 (0.0-1.8) % Lymph # (Auto) 0.3 L (1.2-5.4) K/mm3 Perkins # (Auto) 0.5 (0.0-0.8) K/mm3 Eos # (Auto) 0.0 (0.0-0.4) K/mm3 Baso # (Auto) 0.0 (0.0-0.1) K/mm3 Seg Neutrophils % 86.1 H (40.0-70.0) % Seg Neutrophils # 4.9 (1.8-7.7) K/mm3 Sodium 133 L (137-145) mmol/L Potassium 3.5 L (3.6-5.0) mmol/L Chloride 91.4 L (98-107) mmol/L Carbon Dioxide 31 H (22-30) mmol/L Anion Gap 14 mmol/L BUN 25 H (9-20) mg/dL Creatinine 7.5 H (0.8-1.3) mg/dL Estimated GFR 9 ml/min BUN/Creatinine Ratio 3 % Glucose 114 H (75-100) mg/dL Lactic Acid 1.00 (0.7-2.0) mmol/L Calcium 8.9 (8.4-10.2) mg/dL Total Bilirubin 1.00 (0.1-1.2) mg/dL AST 22 (5-40) units/L ALT 17 (7-56) units/L Alkaline Phosphatase 30 L (35-129) units/L Total Creatine Kinase 68 (55-170) units/L Troponin T 0.103 H* (0.00-0.029) ng/mL Total Protein 7.2 (6.3-8.2) g/dL Albumin 3.6 L (3.9-5) g/dL Albumin/Globulin Ratio 1.0 % Triglycerides 114 (2-149) mg/dL Cholesterol 92 (50-199) mg/dL LDL Cholesterol Direct 27 L (50-130) mg/dL HDL Cholesterol 38 L (40-59) mg/dL Cholesterol/HDL Ratio 2.42 % - EKG Data -: EKG Interpreted by Me EKG shows normal: sinus rhythm Rate: normal - EKG Data 07/22/20 16:49 EKG interpreted at 16: 45 Sinus rhythm, 95 bpm. Normal axis, normal intervals. Poor R wave progression. Normal P wave axis. This is an abnormal EKG. There is left ventricular hypertrophy. This EKG is not a STEMI. It appears unchanged from prior EKG from February 2018. - Radiology Data Radiology results: pending, report reviewed, image reviewed CHEST 2 VIEWS INDICATION / CLINICAL INFORMATION: sepsis. COMPARISON: 03/10/2019 FINDINGS: SUPPORT DEVICES: None. HEART / MEDIASTINUM: No significant abnormality. LUNGS / PLEURA: Increased opacity in the right lower lung. No pneumothorax. ADDITIONAL FINDINGS: No significant additional findings. IMPRESSION: 1. Right lower lung infiltrate. Signer Name: Lawrence Rubio MD Signed: 07/22/2020 2:57 PM Workstation Name: [id number] Critical Care Time: Yes Critical care time in (mins) excluding proc time.: 35 Critical care attestation.: If time is entered above; I have spent that time in minutes in the direct care of this critically ill patient, excluding procedure time. ED Disposition Clinical Impression: ESRD (end stage renal disease) on dialysis, Sepsis, Suspected 2018 novel coronavirus infection, Pulmonary infiltrate Disposition: OP ADMIT IP TO THIS HOSP Is pt being admited?: Yes Does the pt Need Aspirin: No Condition: Fair Referrals: PRIMARY CARE, [Primary Care Provider] - 3-5 Days
[2020-07-22] MEDS ORDERED: HYDROmorphone 1 MG/1 ML INJ IV PRN (16:52)
[2020-07-22] MEDS ORDERED: ONDANSETRON 4 MG/2 ML INJ IV PRN (16:52)
[2020-07-22] MEDS ORDERED: ALBUTEROL 2.5 MG/3 ML NEBU IH PRN (16:52)
--- NOTE | 2020-07-22 16:52 | History and Physical Report ---
History of Present Illness Chief complaint: I feel terrible History of present illness: 50 YO Male with ESRD on HD(T,R,Sa), HTN, GERD, Nicotine Dependence, BARBARA presents to ED for evaluation. Patient reports "I do not feel good". Patient states that he has experienced generalized weakness, malaise, fatigue, decreased exercise tolerance, multiple episodes of nausea, several episodes of vomiting over the past 3 days with worsening symptoms over the same timeframe. Patient states his symptoms worsened after his dialysis session today. Patient transported to [facility] via private vehicle for further care and evaluation of the aforementioned symptoms. The patient was seen and evaluated in the emergency department. All lab and imaging studies reviewed. The patient was found to have a pulse oximetry of 88% with exertion which is consistent with acute hypoxemic respiratory failure. The patient was also found to have fever to 102.5 F, with respiratory rate in the 30s, and a heart rate in the 120s. The patient found to have a have bilateral pneumonia on chest x-ray complicated by sepsis. Patient admitted to medical floor and initiated on sepsis protocol as well as pneumonia protocol and coronavirus protocol. Patient knowledges subjective fever but denies chills, chest pain, palpitations, skin rash, recent ill contacts, or known exposure to COVID-19. Prior admission on 01/20/2018 reviewed. All medication listed at time of admission has been reconciled. Past History Past Medical History: ESRD, GERD, hypertension Past Surgical History: Other (Dialysis access) Social history: single, smoking Family history: diabetes, hypertension Medications and Allergies Allergies Allergy/AdvReac Type Severity Reaction Status Date / Time No Known Allergies Allergy Verified 10/30/19 11:52 Home Medications Medication Instructions Recorded Confirmed Last Taken Type lisinopriL [Zestril TAB] 20 mg PO QDAY #30 tablet 08/08/14 01/22/18 Unknown Rx amLODIPine 10 mg PO DAILY 01/22/18 01/22/18 Unknown History hydroCHLOROthiazide [HCTZ] 25 mg PO QDAY 01/22/18 01/22/18 Unknown History Calcium Acetate [Phoslo] 1,334 mg PO TIDWM #60 capsule 01/28/18 Unknown Rx Nicotine [Habitrol] 21 mg TD DAILY #30 patch 01/28/18 Unknown Rx Pantoprazole [Protonix TAB] 40 mg PO BID #60 tablet 01/28/18 Unknown Rx hydrALAZINE [Apresoline TAB] 50 mg PO Q8HR #90 tablet 01/28/18 Unknown Rx traMADoL [Ultram 50 MG tab] 50 mg PO Q6HR PRN #12 tablet 02/22/19 Unknown Rx Albuterol Mdi (or & Nicu Only) 2 puff IH QID PRN #1 each 03/11/19 Unknown Rx [ProAir HFA Inhaler] Azithromycin [Zithromax Z-CASTILLO] 250 mg PO DAILY #6 tab 03/11/19 Unknown Rx Benzonatate [Tessalon Perles] 100 mg PO Q8HR PRN #30 capsule 03/11/19 Unknown Rx Ibuprofen [Motrin 800 MG tab] 800 mg PO Q8HR PRN #30 tablet 03/11/19 Unknown Rx Capsaicin 0.075% [Zostrix Hp 1 applicatio TP TID PRN #1 tube 10/30/19 Unknown Rx 0.075%] traMADoL [Ultram] 50 mg PO Q6HR PRN #12 tablet 10/30/19 Unknown Rx Active Meds: Active Medications Acetaminophen (Acetaminophen 325 Mg Tab) 650 mg PO Q6H PRN PRN Reason: Pain, Mild (1-3) Ceftriaxone Sodium (Rocephin/Ns 2 Gm/100 Ml) 2 gm in 100 mls @ 200 mls/hr IV Q24H JIMMY; Protocol Azithromycin (Zithromax/Ns) 500 mg in 250 mls @ 250 mls/hr IV ONCE ONE; Татьяна col Stop: 07/22/20 17:37 Review of Systems Constitutional: fever, fatigue, weakness, malaise, no weight loss, no weight gain Ears, nose, mouth and throat: no ear pain, no ear discharge, no tinnitis, no decreased hearing Cardiovascular: no chest pain, no orthopnea, no rapid/irregular heart beat, no syncope Respiratory: no cough, no hemoptysis Gastrointestinal: nausea, vomiting, no abdominal pain, no constipation Genitourinary Male: no hematuria, no flank pain, no discharge, no urinary frequency, no urinary hesitancy Rectal: no pain, no incontinence, no bleeding Musculoskeletal: no neck pain, no shooting arm pain, no leg numbness/tingling Integumentary: no rash, no pruritis, no sores, no blisters Neurological: no head injury, no paralysis, no weakness, no numbness, no seizures, no syncope Psychiatric: no anxiety, no sleep disturbances, no suicidal ideation, no disorientation Endocrine: no cold intolerance, no polyphagia, no excessive thirst, no nocturia Hematologic/Lymphatic: no easy bruising, no lymphadenopathy Allergic/Immunologic: no urticaria, no wheezing, no anaphylaxis, no angioedema Exam - Constitutional Vitals: Temp Pulse Resp BP Pulse Ox 102.5 F H 117 H 20 158/94 97 07/22/20 15:06 07/22/20 15:06 07/22/20 15:06 07/22/20 15:06 07/22/20 15:06 General appearance: Present: mild distress - EENT Eyes: Present: PERRL ENT: hearing intact, clear oral mucosa - Neck Neck: Present: supple, normal ROM - Respiratory Respiratory effort: normal, labored, accessory muscle use Respiratory: bilateral: diminished, rhonchi - Cardiovascular Heart Sounds: Present: S1 & S2. Absent: rub, click - Extremities Extremities: pulses symmetrical, No edema Peripheral Pulses: within normal limits - Abdominal General gastrointestinal: Present: soft, non-tender, non-distended, normal bowel sounds Male genitourinary: Present: normal - Integumentary Integumentary: Present: clear, warm, dry - Musculoskeletal Musculoskeletal: gait normal, strength equal bilaterally - Psychiatric Psychiatric: appropriate mood/affect, intact judgment & insight - Neurologic Neurologic: CNII-XII intact, moves all extremities HEART Score - HEART Score Troponin: Troponin T 0.103 ng/mL (0.00-0.029) H* 07/22/20 15:23 Results - Labs CBC & Chem 7: 07/22/20 15:23 07/22/20 16:51 Labs: Abnormal lab results 07/22/20 07/22/20 Range/Units 15:23 15:23 RBC 3.42 L (3.65-5.03) M/mm3 Hct 35.4 L (35.5-45.6) % MCV 104 H (84-94) fl MCH 36 H (28-32) pg MCHC 35 H (32-34) % RDW 15.6 H (13.2-15.2) % Plt Count 84 L (140-440) K/mm3 Lymph % (Auto) 4.6 L (13.4-35.0) % [place] % (Auto) 8.6 H (0.0-7.3) % Lymph # (Auto) 0.3 L (1.2-5.4) K/mm3 Seg Neutrophils % 86.1 H (40.0-70.0) % Sodium 133 L (137-145) mmol/L Potassium 3.5 L (3.6-5.0) mmol/L Chloride 91.4 L (98-107) mmol/L Carbon Dioxide 31 H (22-30) mmol/L BUN 25 H (9-20) mg/dL Creatinine 7.5 H (0.8-1.3) mg/dL Glucose 114 H (75-100) mg/dL Alkaline Phosphatase 30 L (35-129) units/L Troponin T 0.103 H* (0.00-0.029) ng/mL Albumin 3.6 L (3.9-5) g/dL LDL Cholesterol Direct 27 L (50-130) mg/dL HDL Cholesterol 38 L (40-59) mg/dL Assessment and Plan - Patient Problems (1) Sepsis Current Visit: Yes Status: Acute Plan to address problem: Sepsis protocol: Chest x-ray, CBC, CMP, urinalysis, IV antibiotic therapy, serial lactic acid level, monitor urine output every shift, strict I's/O, monitor fluid balance, serial lactic acid level, blood culture. Maintain mean arterial pressure greater than or equal to 65. (2) Acute hypoxemic respiratory failure Current Visit: Yes Status: Acute Plan to address problem: Supplemental oxygen, pulse oximetry, nebulizer therapy, noninvasive positive pressure ventilation as clinically indicated. (3) Pneumonia Current Visit: Yes Status: Acute Plan to address problem: Pneumonia protocol: Chest x-ray, CBC, CMP, supplemental oxygen, pulse oximetry, nebulizer therapy, blood culture., IV antibiotic therapy (4) ESRD (end stage renal disease) on dialysis Current Visit: Yes Status: Acute Plan to address problem: Nephrology team consulted, dialysis per renal team, avoid nephrotoxic agents. (5) Suspected 2019 novel coronavirus infection Current Visit: Yes Status: Acute Plan to address problem: Coronavirus protocol: Contact precautions, isolation precautions, supplemental oxygen, nebulizer therapy, IV antibiotic therapy, IV steroid therapy, vitamin C therapy vitamin D therapy, zinc therapy, prophylactic anticoagulation (6) DVT prophylaxis Current Visit: Yes Status: Acute Plan to address problem: SCDs bilateral lower extremities while in bed, prophylactic anticoagulation
[2020-07-22] MEDS ORDERED: CAPSAICIN 0.075% CREAM 60 GM TP PRN (16:55)
[2020-07-22] MEDS ORDERED: IBUPROFEN 800 MG TAB PO PRN (16:55)
[2020-07-22 17:24] LABS: C-Reactive Protein 23.4 mg/dL (0.00-1.30)
[2020-07-22] MEDS: NICOTINE 21 MG/24 HR PATCH TD SCH (18:00)
[2020-07-22] MEDS: CALCIUM ACETATE 667 MG CAP PO SCH (19:51)
--- NOTE | 2020-07-22 21:57 | Consultation ---
History of Present Illness - Reason for Consult Consult date: 07/22/20 end stage renal disease - History of Present Illness The patient is a 50 YO male known to our service with history significant for HTN, GERD, ESRD on HD(TTS), Nicotine Dependence and BARBARA who presented to [facility] ED 07/22 for evaluation of generalized weakness. Associated symptoms include fever, malaise, fatigue, decreased exercise tolerance, multiple episodes of nausea & vomiting over the past 3 days. Patient states his symptoms worsened after his dialysis session today. Patient transported to ED via private vehicle for further care and evaluation. In ED patient was found to have a pulse oximetry of 88% on RA, temp of 102.5 F, with respiratory rate in the 30s, and a heart rate 117. CXR showed R sided pneumonia. Patient was admitted to medical floor and initiated on sepsis protocol as well as pneumonia protocol and coronavirus protocol. Nephrology was consulted for ESRD management. Past History Past Medical History: ESRD, GERD, hypertension Past Surgical History: Other (Dialysis access) Social history: single, smoking Family history: diabetes, hypertension Medications and Allergies Allergies Allergy/AdvReac Type Severity Reaction Status Date / Time No Known Allergies Allergy Verified 10/30/19 11:52 Home Medications Medication Instructions Recorded Confirmed Last Taken Type lisinopriL [Zestril TAB] 20 mg PO QDAY #30 tablet 08/08/14 01/22/18 Unknown Rx amLODIPine 10 mg PO DAILY 01/22/18 01/22/18 Unknown History hydroCHLOROthiazide [HCTZ] 25 mg PO QDAY 01/22/18 01/22/18 Unknown History Calcium Acetate [Phoslo] 1,334 mg PO TIDWM #60 capsule 01/28/18 Unknown Rx Nicotine [Habitrol] 21 mg TD DAILY #30 patch 01/28/18 Unknown Rx Pantoprazole [Protonix TAB] 40 mg PO BID #60 tablet 01/28/18 Unknown Rx hydrALAZINE [Apresoline TAB] 50 mg PO Q8HR #90 tablet 01/28/18 Unknown Rx traMADoL [Ultram 50 MG tab] 50 mg PO Q6HR PRN #12 tablet 02/22/19 Unknown Rx Albuterol Mdi (or & Nicu Only) 2 puff IH QID PRN #1 each 03/11/19 Unknown Rx [ProAir HFA Inhaler] Azithromycin [Zithromax Z-CASTILLO] 250 mg PO DAILY #6 tab 03/11/19 Unknown Rx Benzonatate [Tessalon Perles] 100 mg PO Q8HR PRN #30 capsule 03/11/19 Unknown Rx Ibuprofen [Motrin 800 MG tab] 800 mg PO Q8HR PRN #30 tablet 03/11/19 Unknown Rx Capsaicin 0.075% [Zostrix Hp 1 applicatio TP TID PRN #1 tube 10/30/19 Unknown Rx 0.075%] traMADoL [Ultram] 50 mg PO Q6HR PRN #12 tablet 10/30/19 Unknown Rx Active Meds: Active Medications Acetaminophen (Acetaminophen 325 Mg Tab) 650 mg PO Q4H PRN PRN Reason: Pain MILD(1-3)/Fever >100.5/HUBER Albuterol (Albuterol 2.5 Mg/3 Ml Nebu) 2.5 mg IH Q4H PRN PRN Reason: Shortness Of Breath Amlodipine Besylate (Amlodipine 10 Mg Tab) 10 mg PO DAILY [facility] Benzonatate (Benzonatate 100 Mg Cap) 100 mg PO Q8H PRN PRN Reason: Cough Calcium Acetate (Calcium Acetate 667 Mg Cap) 1,334 mg PO TIDWM [facility] Last Admin: 07/22/20 19:51 Dose: 1,334 mg Documented by: Capsaicin (Capsaicin 0.075% Cream 60 Gm) 1 applic TP TID PRN PRN Reason: joint PAIN Famotidine (Famotidine 10 Mg Tab) 10 mg PO BID [facility] Hydralazine HCl (Hydralazine 25 Mg Tab) 50 mg PO Q8HR JIMMY Hydromorphone HCl (Hydromorphone 1 Mg/1 Ml Inj) 0.25 mg IV Q4H PRN PRN Reason: Pain, Moderate (4-6) Azithromycin (Zithromax/Ns) 500 mg in 250 mls @ 250 mls/hr IV Q24H [facility]; Protocol Ceftriaxone Sodium (Rocephin/Ns 2 Gm/100 Ml) 2 gm in 100 mls @ 200 mls/hr IV Q24H JIMMY; Protocol Ibuprofen (Ibuprofen 800 Mg Tab) 800 mg PO Q8H PRN PRN Reason: pain / fever Lisinopril (Lisinopril 20 Mg Tab) 20 mg PO QDAY [facility] Nicotine (Nicotine 21 Mg/24 Hr Patch) 21 mg TD DAILY [facility] Ondansetron HCl (Ondansetron 4 Mg/2 Ml Inj) 4 mg IV Q8H PRN PRN Reason: Nausea And Vomiting Last Admin: 07/22/20 17:17 Dose: 4 mg Documented by: Sodium Chloride (Sodium Chloride 0.9% 10 Ml Flush Syringe) 10 ml IV BID [facility] Sodium Chloride (Sodium Chloride 0.9% 10 Ml Flush Syringe) 10 ml IV PRN PRN PRN Reason: LINE FLUSH Review of Systems Constitutional: fever, chills, anorexia, fatigue, weakness, no weight loss, no weight gain Cardiovascular: dyspnea on exertion, high blood pressure, no chest pain, no orthopnea, no palpitations, no edema, no syncope, no lightheadedness, no shortness of breath Respiratory: no cough, no shortness of breath, no dyspnea on exertion Gastrointestinal: nausea, vomiting, no abdominal pain, no diarrhea, no melena Genitourinary Male: no dysuria, no hematuria Rectal: no bleeding Integumentary: no rash Neurological: no syncope, no convulsions, no aphasia, no change in speech, no change in mentation, no confusion Exam - Vital Signs Vital signs: Vital Signs Temp Pulse Resp BP Pulse Ox 102.5 F H 117 H 20 158/94 97 07/22/20 15:06 07/22/20 15:06 07/22/20 15:06 07/22/20 15:06 07/22/20 15:06 Results - Lab Results 07/23/20 05:44 07/23/20 05:44 Most recent lab results Calcium 8.9 mg/dL (8.4-10.2) 07/22/20 15:23 Magnesium 1.90 mg/dL (1.7-2.3) 07/22/20 16:51 Assessment and Plan 1. ESRD: Patient is on mainteneance hemodialysis three times a week, TTS schedule. Last outpatient hemodialysis was on 07/22. Meds dosage based on GFR. Hemodialysis: 2. FEN: Monitor lytes and volume status. 3. R LL PNA: Abx for CAP. Covid test. 4. Sepsis: Likely 2/2 PNA. GNR bacteremia. Sepsis protocol. 5. Acute hypoxemic respiratory failure, POA: 2/2 PNA. Supplemental oxygen, pulse oximetry, nebulizer therapy, noninvasive positive pressure ventilation as clinically indicated. 6. Suspected 2019 novel coronavirus infection. 7. Hypertension. 8. Anemia and thrombocytopenia. 9. Tobacco smoking. Subjective: Patient was seen and examined at the bedside. General Appearance: General appearance: well-developed, appears stated age, not in distress EENT: ATNC, pupils equal Neck: neck supple, trachea midline Respiratory: ctab Heart: regular, S1S2, no murmur Abdomen: soft, normoactive bowel sounds, not tender Integumentary: no rash, warm and dry Neurologic: AO, non-focal Ext: no edema Hemodialysis access: L arm AVF / AVG
[2020-07-22] MEDS: ACETAMINOPHEN 325 MG TAB PO PRN (23:09)
[2020-07-22] MEDS: hydrALAZINE 25 MG TAB PO SCH (23:10)
[2020-07-22] MEDS: FAMOTIDINE 10 MG TAB PO SCH (23:11)
[2020-07-23] MEDS: hydrALAZINE 25 MG TAB PO SCH ×3 (06:00→22:13)
[2020-07-23 06:30] LABS: Basophils % (Auto) 0.7 % (0.0-1.8); Eosinophils % (Auto) 0.3 % (0.0-4.3); Hematocrit 31.1 % (35.5-45.6); Hemoglobin 10.6 gm/dl (11.8-15.2); Lymphocytes # (Auto) 0.2 K/mm3 (1.2-5.4); Lymphocytes % (Auto) 3.7 % (13.4-35.0); Mean Corpuscular HGB Conc 34 % (32-34); Mean Corpuscular Volume 105 fl (84-94); Monocytes # (Auto) 0.3 K/mm3 (0.0-0.8); Monocytes % (Auto) 6.6 % (0.0-7.3); Red Blood Count 2.95 M/mm3 (3.65-5.03); Red Cell Distribution Width 15.4 % (13.2-15.2)
[2020-07-23 06:38] LABS: Platelet Count 72 K/mm3 (140-440)
[2020-07-23 06:48] LABS: Albumin 3.2 g/dL (3.9-5); Calcium 8.4 mg/dL (8.4-10.2)
[2020-07-23] MEDS: CALCIUM ACETATE 667 MG CAP PO SCH ×3 (08:41→18:39)
--- NOTE | 2020-07-23 10:43 | Progress Note ---
Assessment and Plan --Sepsis Likely due to underlying pneumonia and bacteremia Continue empiric antibiotic, follow final culture result, consult ID -- Acute hypoxemic respiratory failure Likely due to underlying pneumonia, continue supplemental O2 and empiric antibiotics nebulizer breathing treatment as needed -- Pneumonia Continue supplemental oxygen, pulse oximetry, nebulizer therapy, blood culture, IV antibiotic therapy Will also rule out for COVID-19 --Gram-negative sheila bacteremia, continue empiric antibiotics consult ID Ordered for repeat blood culture -- ESRD (end stage renal disease) on dialysis Nephrology team consulted, dialysis per renal team, avoid nephrotoxic agents. -- Suspected 2019 novel coronavirus infection Coronavirus protocol: Contact precautions, isolation precautions, supplemental oxygen, nebulizer therapy, IV antibiotic therapy, IV steroid therapy, vitamin C therapy vitamin D therapy, zinc therapy, prophylactic anticoagulation --Mild hyponatremia, improved --Mild tachycardia, resolved --Anemia Likely due to chronic disease --Elevated D-dimer, likely due to underlying pneumonia Follow inflammatory markers, if remains elevated VQ scan -- DVT prophylaxis SCDs bilateral lower extremities while in bed, prophylactic anticoagulation Brief history: 50 YO Male with ESRD on HD(T,R,Sa), HTN, GERD, Nicotine Dependence, BARBARA presents to ED with generalized weakness, malaise, fatigue, decreased exercise tolerance, multiple episodes of nausea, several episodes of vomiting over the past 3 days. The patient was found to have a pulse oximetry of 88% with exertion, fever to 102.5 F, with respiratory rate in the 30s, and a heart rate in the 120s. Chest x-rays are stable bilateral pneumonia. Patient was admitted to the hospital hypoxemia, pneumonia and PUIN for COVID-19. 07/23: Continue empiric antibiotic, continue supplemental O2 and nebulizer breathing treatment. Wait for COVID-19 test result. Nephrology consulted for hemodialysis. Blood culture positive for gram-negative rods, continue Rocephin, repeat blood culture, consult ID Subjective Date of service: 07/23/20 Interval history: Patient seen and examined. Medical records and medication list reviewed. No acute event overnight noted by the RN. Patient denies any chest pain, resting on bed comfortably. Patient is tole rating diet. Blood culture came positive for gram-negative sheila Discussed plan of care at bedside with patient. Objective - Exam Narrative Exam: Limited physical exam due to COVID-19 pandemic to minimize transmission of the disease and to preserve PPE. Vital reviewed and stable. GENERAL: well-developed well-nourished lying on bed appeared to be in no discomfort. HEENT: Normocephalic. Atraumatic. NECK: Supple. CHEST/LUNGS: breathing nonlabored. HEART/CARDIOVASCULAR: Heart rate stable on telemetry ABDOMEN: Visibly not distended SKIN: There is no rash NEURO: No focal motor deficit. Follows command. MUSCULOSKELETAL: No joint effusion EXTRIMITY: No swelling, no cyanosis or clubbing. PSYCH: Cooperative. - Constitutional Vitals: Vital Signs - 12hr 07/22/20 07/22/20 07/22/20 22:40 22:50 23:00 Temperature Pulse Rate Respiratory Rate Blood Pressure 112/86 112/86 112/86 O2 Sat by Pulse 100 100 100 Oximetry 07/22/20 07/22/20 07/22/20 23:05 23:06 23:07 Temperature Pulse Rate 103 H 103 H Respiratory Rate Blood Pressure 107/67 O2 Sat by Pulse 96 96 Oximetry 07/22/20 07/22/20 07/22/20 23:10 23:15 23:20 Temperature 100.3 F H Pulse Rate 100 H 84 Respiratory 20 Rate Blood Pressure 107/67 107/67 O2 Sat by Pulse 100 100 Oximetry 07/22/20 07/22/20 07/22/20 23:32 23:40 23:50 Temperature Pulse Rate Respiratory Rate Blood Pressure 108/62 117/64 117/64 O2 Sat by Pulse 100 100 Oximetry 07/22/20 07/23/20 07/23/20 23:56 00:00 00:10 Temperature Pulse Rate Respiratory Rate Blood Pressure 117/64 117/64 100/67 O2 Sat by Pulse 100 100 100 Oximetry 07/23/20 07/23/20 07/23/20 00:20 00:30 00:40 Temperature Pulse Rate Respiratory Rate Blood Pressure 107/67 107/67 102/63 O2 Sat by Pulse 100 100 100 Oximetry 07/23/20 07/23/20 07/23/20 00:50 01:00 01:38 Temperature Pulse Rate Respiratory Rate Blood Pressure 100/67 100/67 124/86 O2 Sat by Pulse 100 100 Oximetry 07/23/20 07/23/20 05:03 10:26 Temperature 98.8 F Pulse Rate 87 Respiratory 20 Rate Blood Pressure 185/91 O2 Sat by Pulse 98 94 Oximetry - Labs CBC & Chem 7: 07/23/20 05:44 07/23/20 05:44 Labs: Abnormal lab results 07/22/20 07/22/20 07/22/20 Range/Units 15:23 15:23 16:51 WBC (4.5-11.0) K/mm3 RBC 3.42 L (3.65-5.03) M/mm3 Hgb (11.8-15.2) gm/dl Hct 35.4 L (35.5-45.6) % MCV 104 H (84-94) fl MCH 36 H (28-32) pg MCHC 35 H (32-34) % RDW 15.6 H (13.2-15.2) % Plt Count 84 L (140-440) K/mm3 Lymph % (Auto) 4.6 L (13.4-35.0) % [place] % (Auto) 8.6 H (0.0-7.3) % Lymph # (Auto) 0.3 L (1.2-5.4) K/mm3 Seg Neutrophils % 86.1 H (40.0-70.0) % D-Dimer 765.26 H (0-234) ng/mlDDU Sodium 133 L (137-145) mmol/L Potassium 3.5 L (3.6-5.0) mmol/L Chloride 91.4 L (98-107) mmol/L Carbon Dioxide 31 H (22-30) mmol/L BUN 25 H (9-20) mg/dL Creatinine 7.5 H (0.8-1.3) mg/dL Glucose 114 H (75-100) mg/dL Ferritin (30.0-300.0) ng/mL Alkaline Phosphatase 30 L (35-129) units/L Lactate Dehydrogenase (91-180) units/L Troponin T 0.103 H* (0.00-0.029) ng/mL C-Reactive Protein (0.00-1.30) mg/dL Total Protein (6.3-8.2) g/dL Albumin 3.6 L (3.9-5) g/dL LDL Cholesterol Direct 27 L (50-130) mg/dL HDL Cholesterol 38 L (40-59) mg/dL 07/22/20 07/22/20 07/23/20 Range/Units 16:51 16:51 05:44 WBC 4.4 L (4.5-11.0) K/mm3 RBC 2.95 L (3.65-5.03) M/mm3 Hgb 10.6 L (11.8-15.2) gm/dl Hct 31.1 L (35.5-45.6) % MCV 105 H (84-94) fl MCH 36 H (28-32) pg MCHC (32-34) % RDW 15.4 H (13.2-15.2) % Plt Count 72 L (140-440) K/mm3 Lymph % (Auto) 3.7 L (13.4-35.0) % [place] % (Auto) (0.0-7.3) % Lymph # (Auto) 0.2 L (1.2-5.4) K/mm3 Seg Neutrophils % 88.7 H (40.0-70.0) % D-Dimer (0-234) ng/mlDDU Sodium (137-145) mmol/L Potassium (3.6-5.0) mmol/L Chloride (98-107) mmol/L Carbon Dioxide (22-30) mmol/L BUN (9-20) mg/dL Creatinine (0.8-1.3) mg/dL Glucose 113 H (75-100) mg/dL Ferritin 1811.0 H (30.0-300.0) ng/mL Alkaline Phosphatase (35-129) units/L Lactate Dehydrogenase 185 H (91-180) units/L Troponin T (0.00-0.029) ng/mL C-Reactive Protein 23.40 H (0.00-1.30) mg/dL Total Protein (6.3-8.2) g/dL Albumin (3.9-5) g/dL LDL Cholesterol Direct (50-130) mg/dL HDL Cholesterol (40-59) mg/dL 07/23/20 Range/Units 05:44 WBC (4.5-11.0) K/mm3 RBC (3.65-5.03) M/mm3 Hgb (11.8-15.2) gm/dl Hct (35.5-45.6) % MCV (84-94) fl MCH (28-32) pg MCHC (32-34) % RDW (13.2-15.2) % Plt Count (140-440) K/mm3 Lymph % (Auto) (13.4-35.0) % [place] % (Auto) (0.0-7.3) % Lymph # (Auto) (1.2-5.4) K/mm3 Seg Neutrophils % (40.0-70.0) % D-Dimer (0-234) ng/mlDDU Sodium (137-145) mmol/L Potassium (3.6-5.0) mmol/L Chloride 95.1 L (98-107) mmol/L Carbon Dioxide (22-30) mmol/L BUN 32 H (9-20) mg/dL Creatinine 8.4 H (0.8-1.3) mg/dL Glucose (75-100) mg/dL Ferritin (30.0-300.0) ng/mL Alkaline Phosphatase 33 L (35-129) units/L Lactate Dehydrogenase (91-180) units/L Troponin T (0.00-0.029) ng/mL C-Reactive Protein (0.00-1.30) mg/dL Total Protein 5.7 L D (6.3-8.2) g/dL Albumin 3.2 L (3.9-5) g/dL LDL Cholesterol Direct (50-130) mg/dL HDL Cholesterol (40-59) mg/dL HEART Score - HEART Score Troponin: Troponin T 0.103 ng/mL (0.00-0.029) H* 07/22/20 15:23
[2020-07-23] MEDS: NICOTINE 21 MG/24 HR PATCH TD SCH (11:25)
[2020-07-23] MEDS: amLODIPine 10 MG TAB PO SCH (11:25)
[2020-07-23] MEDS: LISINOPRIL 20 MG TAB PO SCH (11:27)
[2020-07-23] MEDS: FAMOTIDINE 10 MG TAB PO SCH ×2 (11:27→22:13)
[2020-07-23] MEDS ORDERED: AZITHROMYCIN/NS 500 MG/250 ML 500 MG/250 ML BAG IV SCH (17:00)
--- NOTE | 2020-07-23 18:03 | Progress Note ---
Assessment and Plan 1. ESRD: Patient is on mainteneance hemodialysis three times a week, TTS schedule. Last outpatient hemodialysis was on 07/22. Meds dosage based on GFR. Hemodialysis: 2. FEN: Monitor lytes and volume status. 3. R LL PNA: Abx for CAP. Covid test pending. 4. Sepsis: Likely 2/2 PNA. GNR bacteremia. Sepsis protocol. 5. Acute hypoxemic respiratory failure, POA: 2/2 PNA. Supplemental oxygen, pulse oximetry, nebulizer therapy, noninvasive positive pressure ventilation as clinically indicated. 6. Suspected 2019 novel coronavirus infection. 7. Hypertension. 8. Anemia and thrombocytopenia. 9. Tobacco smoking. Subjective: Patient was seen and examined at the bedside. General Appearance: General appearance: well-developed, appears stated age, not in distress HEENT: ATNC, pupils equal Neck: neck supple, trachea midline Respiratory: ctab Heart: regular, S1S2, no murmur Abdomen: soft, normoactive bowel sounds, not tender Integumentary: no rash, warm and dry Neurologic: AO, non-focal Ext: no edema Hemodialysis access: L arm AVF / AVG Subjective Date of service: 07/23/20 Objective - Vital Signs Vital signs: Vital Signs - 12hr 07/23/20 07/23/20 07/23/20 10:00 10:26 11:03 Temperature 97.3 F L Pulse Rate 92 H Respiratory 19 Rate Blood Pressure 173/83 O2 Sat by Pulse 92 94 95 Oximetry 07/23/20 07/23/20 11:25 11:27 Temperature Pulse Rate 92 H 92 H Respiratory Rate Blood Pressure 173/83 173/83 O2 Sat by Pulse Oximetry - Lab 07/23/20 05:44 07/23/20 05:44 Most recent lab results Calcium 8.4 mg/dL (8.4-10.2) 07/23/20 05:44 Magnesium 1.90 mg/dL (1.7-2.3) 07/22/20 16:51 Medications & Allergies - Medications Allergies/Adverse Reactions: Allergies No Known Allergies Allergy (Verified 10/30/19 11:52) Home Medications: Home Medications Medication Instructions Recorded Confirmed Last Taken Type lisinopriL [Zestril TAB] 20 mg PO QDAY #30 tablet 08/08/14 01/22/18 Unknown Rx amLODIPine 10 mg PO DAILY 01/22/18 01/22/18 Unknown History hydroCHLOROthiazide [HCTZ] 25 mg PO QDAY 01/22/18 01/22/18 Unknown History Calcium Acetate [Phoslo] 1,334 mg PO TIDWM #60 capsule 01/28/18 Unknown Rx Nicotine [Habitrol] 21 mg TD DAILY #30 patch 01/28/18 Unknown Rx Pantoprazole [Protonix TAB] 40 mg PO BID #60 tablet 01/28/18 Unknown Rx hydrALAZINE [Apresoline TAB] 50 mg PO Q8HR #90 tablet 01/28/18 Unknown Rx traMADoL [Ultram 50 MG tab] 50 mg PO Q6HR PRN #12 tablet 02/22/19 Unknown Rx Albuterol Mdi (or & Nicu Only) 2 puff IH QID PRN #1 each 03/11/19 Unknown Rx [ProAir HFA Inhaler] Azithromycin [Zithromax Z-CASTILLO] 250 mg PO DAILY #6 tab 03/11/19 Unknown Rx Benzonatate [Tessalon Perles] 100 mg PO Q8HR PRN #30 capsule 03/11/19 Unknown Rx Ibuprofen [Motrin 800 MG tab] 800 mg PO Q8HR PRN #30 tablet 03/11/19 Unknown Rx Capsaicin 0.075% [Zostrix Hp 1 applicatio TP TID PRN #1 tube 10/30/19 Unknown Rx 0.075%] traMADoL [Ultram] 50 mg PO Q6HR PRN #12 tablet 10/30/19 Unknown Rx Active Medications: Generic Name Dose Route Start Last Admin Trade Name Haroonq PRN Reason Stop Dose Admin Acetaminophen 650 mg 07/22/20 16:52 07/22/20 23:09 Acetaminophen 325 Mg Tab PO 650 mg Q4H PRN Administration Pain MILD(1-3)/Fever >100.5/HUBER Albuterol 2.5 mg 07/22/20 16:52 Albuterol 2.5 Mg/3 Ml Nebu IH Q4H PRN Shortness Of Breath Amlodipine Besylate 10 mg 07/23/20 10:00 07/23/20 11:25 Amlodipine 10 Mg Tab PO 10 mg DAILY JIMMY Administration Benzonatate 100 mg 07/22/20 16:55 Benzonatate 100 Mg Cap PO Q8H PRN Cough Calcium Acetate 1,334 mg 07/22/20 17:00 07/23/20 12:14 Calcium Acetate 667 Mg Cap PO 1,334 mg TIDWM JIMMY Administration Capsaicin 1 applic 07/22/20 16:55 Capsaicin 0.075% Cream 60 Gm TP TID PRN joint PAIN Carvedilol 6.25 mg 07/23/20 22:00 Carvedilol 6.25 Mg Tab PO BID JIMMY Famotidine 10 mg 07/22/20 22:00 07/23/20 11:27 Famotidine 10 Mg Tab PO 10 mg BID JIMMY Administration Hydralazine HCl 50 mg 07/22/20 22:00 07/23/20 15:47 Hydralazine 25 Mg Tab PO 50 mg Q8HR JIMMY Administration Hydralazine HCl 5 mg 07/23/20 16:23 Hydralazine 20 Mg/1 Ml Inj IV Q30MIN PRN Hypertension Hydromorphone HCl 0.25 mg 07/22/20 16:52 Hydromorphone 1 Mg/1 Ml Inj IV Q4H PRN Pain, Moderate (4-6) Azithromycin 500 mg in 250 mls @ 250 mls/hr 07/23/20 17:00 Zithromax/Ns IV Q24H [facility] Protocol Ceftriaxone Sodium 2 gm in 100 mls @ 200 mls/hr 07/23/20 17:00 Rocephin/Ns 2 Gm/100 Ml IV Q24H [facility] Protocol Ibuprofen 800 mg 07/22/20 16:55 Ibuprofen 800 Mg Tab PO Q8H PRN pain / fever Lisinopril 20 mg 07/23/20 10:00 07/23/20 11:27 Lisinopril 20 Mg Tab PO 20 mg QDAY JIMMY Administration Nicotine 21 mg 07/22/20 18:00 07/23/20 11:25 Nicotine 21 Mg/24 Hr Patch TD 21 mg DAILY JIMMY Administration Ondansetron HCl 4 mg 07/22/20 16:52 07/22/20 17:17 Ondansetron 4 Mg/2 Ml Inj IV 4 mg Q8H PRN Administration Nausea And Vomiting Sodium Chloride 10 ml 07/22/20 22:00 07/23/20 11:28 Sodium Chloride 0.9% 10 Ml Flush Syringe IV 10 ml BID JIMMY Administration Sodium Chloride 10 ml 07/22/20 16:52 Sodium Chloride 0.9% 10 Ml Flush Syringe IV PRN PRN LINE FLUSH
[2020-07-23] MEDS: cefTRIAXone/NS 2 GM/100 ML 2 GM/100 ML BAG IV SCH (18:38)
[2020-07-23] MEDS: carvediloL 6.25 MG TAB PO SCH (22:14)
[2020-07-23] MEDS: ACETAMINOPHEN 325 MG TAB PO PRN (22:16)
[2020-07-23] MEDS: BENZONATATE 100 MG CAP PO PRN (22:20)
[2020-07-24] MEDS: hydrALAZINE 25 MG TAB PO SCH ×3 (06:25→21:11)
[2020-07-24] MEDS: hydrALAZINE 20 MG/1 ML INJ IV PRN (06:34)
[2020-07-24] MEDS: CALCIUM ACETATE 667 MG CAP PO SCH ×3 (08:59→16:03)
[2020-07-24] MEDS: NICOTINE 21 MG/24 HR PATCH TD SCH (09:00)
[2020-07-24] MEDS: amLODIPine 10 MG TAB PO SCH (09:00)
[2020-07-24] MEDS: LISINOPRIL 20 MG TAB PO SCH (09:00)
[2020-07-24] MEDS: FAMOTIDINE 10 MG TAB PO SCH ×2 (09:00→21:11)
[2020-07-24] MEDS: carvediloL 6.25 MG TAB PO SCH ×2 (09:00→21:11)
--- NOTE | 2020-07-24 09:31 | Progress Note ---
Assessment and Plan 1. ESRD: Patient is on mainteneance hemodialysis three times a week, TTS schedule. Last outpatient hemodialysis was on 07/22. Meds dosage based on GFR. Hemodialysis: 2. FEN: Monitor lytes and volume status. 3. R LL PNA: Abx for CAP. Covid test negative. 4. Sepsis: Likely 2/2 PNA. E.Coli bacteremia. Sepsis protocol. 5. Acute hypoxemic respiratory failure, POA: 2/2 PNA. Supplemental oxygen, pulse oximetry, nebulizer therapy, noninvasive positive pressure ventilation as clinically indicated. 6. Hypertension: Adjust meds as appropriate. 7. Anemia and thrombocytopenia. 8. Tobacco smoking. Subjective: Patient was seen and examined at the bedside. Doing ok. General Appearance: General appearance: well-developed, appears stated age, not in distress HEENT: ATNC, pupils equal Neck: neck supple, trachea midline Respiratory: ctab Heart: regular, S1S2, no murmur Abdomen: soft, normoactive bowel sounds, not tender Integumentary: no rash, warm and dry Neurologic: AO, non-focal Ext: no edema Hemodialysis access: R arm AVF / AVG Subjective Date of service: 07/24/20 Objective - Vital Signs Vital signs: Vital Signs - 12hr 07/23/20 07/23/20 07/23/20 21:55 22:02 22:13 Temperature Pulse Rate 94 H Respiratory Rate Blood Pressure 182/87 182/86 O2 Sat by Pulse 97 Oximetry 07/23/20 07/23/20 07/24/20 22:14 23:32 04:11 Temperature 98.6 F 98.0 F Pulse Rate 94 H 90 83 Respiratory 18 18 Rate Blood Pressure 182/86 185/91 164/75 O2 Sat by Pulse 96 96 Oximetry 07/24/20 07/24/20 06:25 06:34 Temperature Pulse Rate 95 H 95 H Respiratory Rate Blood Pressure 185/89 185/89 O2 Sat by Pulse Oximetry - Lab 07/23/20 05:44 07/23/20 05:44 Most recent lab results Calcium 8.4 mg/dL (8.4-10.2) 07/23/20 05:44 Magnesium 1.90 mg/dL (1.7-2.3) 07/22/20 16:51 Medications & Allergies - Medications Allergies/Adverse Reactions: Allergies No Known Allergies Allergy (Verified 10/30/19 11:52) Home Medications: Home Medications Medication Instructions Recorded Confirmed Last Taken Type lisinopriL [Zestril TAB] 20 mg PO QDAY #30 tablet 08/08/14 07/24/20 Unknown Rx amLODIPine 10 mg PO DAILY 01/22/18 07/24/20 Unknown History hydroCHLOROthiazide [HCTZ] 25 mg PO QDAY 01/22/18 07/24/20 Unknown History Calcium Acetate [Phoslo] 1,334 mg PO TIDWM #60 capsule 01/28/18 07/24/20 Unknown Rx Nicotine [Habitrol] 21 mg TD DAILY #30 patch 01/28/18 07/24/20 Unknown Rx Pantoprazole [Protonix TAB] 40 mg PO BID #60 tablet 01/28/18 07/24/20 Unknown Rx hydrALAZINE [Apresoline TAB] 50 mg PO Q8HR #90 tablet 01/28/18 07/24/20 Unknown Rx traMADoL [Ultram 50 MG tab] 50 mg PO Q6HR PRN #12 tablet 02/22/19 07/24/20 Unknown Rx Albuterol Mdi (or & Nicu Only) 2 puff IH QID PRN #1 each 03/11/19 07/24/20 Unknown Rx [ProAir HFA Inhaler] Azithromycin [Zithromax Z-CASTILLO] 250 mg PO DAILY #6 tab 03/11/19 07/24/20 Unknown Rx Benzonatate [Tessalon Perles] 100 mg PO Q8HR PRN #30 capsule 03/11/19 07/24/20 Unknown Rx Ibuprofen [Motrin 800 MG tab] 800 mg PO Q8HR PRN #30 tablet 03/11/19 07/24/20 Unknown Rx Capsaicin 0.075% [Zostrix Hp 1 applicatio TP TID PRN #1 tube 10/30/19 07/24/20 Unknown Rx 0.075%] traMADoL [Ultram] 50 mg PO Q6HR PRN #12 tablet 10/30/19 07/24/20 Unknown Rx Active Medications: Generic Name Dose Route Start Last Admin Trade Name Freq PRN Reason Stop Dose Admin Acetaminophen 650 mg 07/22/20 16:52 07/23/20 22:16 Acetaminophen 325 Mg Tab PO 650 mg Q4H PRN Administration Pain MILD(1-3)/Fever >100.5/HUBER Albuterol 2.5 mg 07/22/20 16:52 Albuterol 2.5 Mg/3 Ml Nebu IH Q4H PRN Shortness Of Breath Amlodipine Besylate 10 mg 07/23/20 10:00 07/24/20 09:00 Amlodipine 10 Mg Tab PO 10 mg DAILY JIMMY Administration Benzonatate 100 mg 07/22/20 16:55 07/23/20 22:20 Benzonatate 100 Mg Cap PO 100 mg Q8H PRN Administration Cough Calcium Acetate 1,334 mg 07/22/20 17:00 07/24/20 08:59 Calcium Acetate 667 Mg Cap PO 1,334 mg TIDWM JIMMY Administration Capsaicin 1 applic 07/22/20 16:55 Capsaicin 0.075% Cream 60 Gm TP TID PRN joint PAIN Carvedilol 6.25 mg 07/23/20 22:00 07/24/20 09:00 Carvedilol 6.25 Mg Tab PO 6.25 mg BID JIMMY Administration Famotidine 10 mg 07/22/20 22:00 07/24/20 09:00 Famotidine 10 Mg Tab PO 10 mg BID JIMMY Administration Hydralazine HCl 50 mg 07/22/20 22:00 07/24/20 06:25 Hydralazine 25 Mg Tab PO 50 mg Q8HR JIMMY Administration Hydralazine HCl 5 mg 07/23/20 16:23 07/24/20 06:34 Hydralazine 20 Mg/1 Ml Inj IV 5 mg Q30MIN PRN Administration Hypertension Hydromorphone HCl 0.25 mg 07/22/20 16:52 Hydromorphone 1 Mg/1 Ml Inj IV Q4H PRN Pain, Moderate (4-6) Azithromycin 500 mg in 250 mls @ 250 mls/hr 07/23/20 17:00 07/23/20 19:15 Zithromax/Ns IV 250 mls/hr Q24H JIMMY Administration Protocol Ceftriaxone Sodium 2 gm in 100 mls @ 200 mls/hr 07/23/20 17:00 07/23/20 18:38 Rocephin/Ns 2 Gm/100 Ml IV 200 mls/hr Q24H JIMMY Administration Protocol Ibuprofen 800 mg 07/22/20 16:55 07/24/20 08:58 Ibuprofen 800 Mg Tab PO 800 mg Q8H PRN Administration pain / fever Lisinopril 20 mg 07/23/20 10:00 07/24/20 09:00 Lisinopril 20 Mg Tab PO 20 mg QDAY JIMMY Administration Nicotine 21 mg 07/22/20 18:00 07/24/20 09:00 Nicotine 21 Mg/24 Hr Patch TD 21 mg DAILY JIMMY Administration Ondansetron HCl 4 mg 07/22/20 16:52 07/22/20 17:17 Ondansetron 4 Mg/2 Ml Inj IV 4 mg Q8H PRN Administration Nausea And Vomiting Sodium Chloride 10 ml 07/22/20 22:00 07/24/20 09:01 Sodium Chloride 0.9% 10 Ml Flush Syringe IV 10 ml BID JIMMY Administration Sodium Chloride 10 ml 07/22/20 16:52 Sodium Chloride 0.9% 10 Ml Flush Syringe IV PRN PRN LINE FLUSH
--- NOTE | 2020-07-24 12:52 | Consultation ---
History of Present Illness - Reason for Consult Consult date: 07/24/20 GNR bacteremia Requesting physician: TI RENO - History of Present Illness The patient is a 50-year-old male with ESRD on HD, hypertension, gastroesophageal reflux disease was admitted to the hospital with fever, chills, nausea, vomiting as well as fatigue. Chest x-ray suggested a pneumonia. Patient's COVID-19 test is pending. T-max was 102.5 F on admission. Blood cultures have turned positive for gram-negative rods, hence infectious diseases was consulted. Patient is afebrile. On ceftriaxone and azithromycin. Does have some abdominal pain, also with nausea, vomiting. Review of Systems: General: fever, fatigue HEENT: no new visual disturbance Respiratory: shortness of breath Cardiovascular: No chest pain, syncope Gastrointestinal: + nausea, vomiting Genitourinary: No dysuria or hematuria Musculoskeletal: No new or worsening neck pain or back pain Neurologic: No headaches, seizures Hematologic: No easy bruising or bleeding Endocrine: No night sweats or acute weight loss Skin: negative for rash, jaundice Psychiatric: No suicidal or homicidal ideation Past History Past Medical History: ESRD, GERD, hypertension Past Surgical History: Other (Dialysis access) Social history: single, smoking Family history: diabetes, hypertension Medications and Allergies Allergies Allergy/AdvReac Type Severity Reaction Status Date / Time No Known Allergies Allergy Verified 10/30/19 11:52 Home Medications Medication Instructions Recorded Confirmed Last Taken Type lisinopriL [Zestril TAB] 20 mg PO QDAY #30 tablet 08/08/14 07/24/20 Unknown Rx amLODIPine 10 mg PO DAILY 01/22/18 07/24/20 Unknown History hydroCHLOROthiazide [HCTZ] 25 mg PO QDAY 01/22/18 07/24/20 Unknown History Calcium Acetate [Phoslo] 1,334 mg PO TIDWM #60 capsule 01/28/18 07/24/20 Unknown Rx Nicotine [Habitrol] 21 mg TD DAILY #30 patch 01/28/18 07/24/20 Unknown Rx Pantoprazole [Protonix TAB] 40 mg PO BID #60 tablet 01/28/18 07/24/20 Unknown Rx hydrALAZINE [Apresoline TAB] 50 mg PO Q8HR #90 tablet 01/28/18 07/24/20 Unknown Rx traMADoL [Ultram 50 MG tab] 50 mg PO Q6HR PRN #12 tablet 02/22/19 07/24/20 Unknown Rx Albuterol Mdi (or & Nicu Only) 2 puff IH QID PRN #1 each 03/11/19 07/24/20 Unknown Rx [ProAir HFA Inhaler] Azithromycin [Zithromax Z-CASTILLO] 250 mg PO DAILY #6 tab 03/11/19 07/24/20 Unknown Rx Benzonatate [Tessalon Perles] 100 mg PO Q8HR PRN #30 capsule 03/11/19 07/24/20 Unknown Rx Ibuprofen [Motrin 800 MG tab] 800 mg PO Q8HR PRN #30 tablet 03/11/19 07/24/20 Unknown Rx Capsaicin 0.075% [Zostrix Hp 1 applicatio TP TID PRN #1 tube 10/30/19 07/24/20 Unknown Rx 0.075%] traMADoL [Ultram] 50 mg PO Q6HR PRN #12 tablet 10/30/19 07/24/20 Unknown Rx Active Meds: Active Medications Acetaminophen (Acetaminophen 325 Mg Tab) 650 mg PO Q4H PRN PRN Reason: Pain MILD(1-3)/Fever >100.5/HUBER Last Admin: 07/23/20 22:16 Dose: 650 mg Documented by: Albuterol (Albuterol 2.5 Mg/3 Ml Nebu) 2.5 mg IH Q4H PRN PRN Reason: Shortness Of Breath Amlodipine Besylate (Amlodipine 10 Mg Tab) 10 mg PO DAILY [facility] Last Admin: 07/24/20 09:00 Dose: 10 mg Documented by: Benzonatate (Benzonatate 100 Mg Cap) 100 mg PO Q8H PRN PRN Reason: Cough Last Admin: 07/23/20 22:20 Dose: 100 mg Documented by: Calcium Acetate (Calcium Acetate 667 Mg Cap) 1,334 mg PO TIDWM [facility] Last Admin: 07/24/20 12:10 Dose: 1,334 mg Documented by: Capsaicin (Capsaicin 0.075% Cream 60 Gm) 1 applic TP TID PRN PRN Reason: joint PAIN Carvedilol (Carvedilol 6.25 Mg Tab) 6.25 mg PO BID [facility] Last Admin: 07/24/20 09:00 Dose: 6.25 mg Documented by: Famotidine (Famotidine 10 Mg Tab) 10 mg PO BID [facility] Last Admin: 07/24/20 09:00 Dose: 10 mg Documented by: Furosemide (Furosemide 40 Mg Tab) 80 mg PO QDAY [facility] Hydralazine HCl (Hydralazine 25 Mg Tab) 50 mg PO Q8HR [facility] Last Admin: 07/24/20 06:25 Dose: 50 mg Documented by: Hydralazine HCl (Hydralazine 20 Mg/1 Ml Inj) 5 mg IV Q30MIN PRN PRN Reason: Hypertension Last Admin: 07/24/20 06:34 Dose: 5 mg Documented by: Hydromorphone HCl (Hydromorphone 1 Mg/1 Ml Inj) 0.25 mg IV Q4H PRN PRN Reason: Pain, Moderate (4-6) Azithromycin (Zithromax/Ns) 500 mg in 250 mls @ 250 mls/hr IV Q24H [facility]; Protocol Last Admin: 07/23/20 19:15 Dose: 250 mls/hr Documented by: Ceftriaxone Sodium (Rocephin/Ns 2 Gm/100 Ml) 2 gm in 100 mls @ 200 mls/hr IV Q24H [facility]; Protocol Last Admin: 07/23/20 18:38 Dose: 200 mls/hr Documented by: Losartan Potassium (Losartan 50 Mg Tab) 100 mg PO QDAY [facility] Nicotine (Nicotine 21 Mg/24 Hr Patch) 21 mg TD DAILY [facility] Last Admin: 07/24/20 09:00 Dose: 21 mg Documented by: Ondansetron HCl (Ondansetron 4 Mg/2 Ml Inj) 4 mg IV Q8H PRN PRN Reason: Nausea And Vomiting Last Admin: 07/22/20 17:17 Dose: 4 mg Documented by: Sodium Chloride (Sodium Chloride 0.9% 10 Ml Flush Syringe) 10 ml IV BID [facility] Last Admin: 07/24/20 09:01 Dose: 10 ml Documented by: Sodium Chloride (Sodium Chloride 0.9% 10 Ml Flush Syringe) 10 ml IV PRN PRN PRN Reason: LINE FLUSH Physical Examination - Physical Exam Narrative exam: Physical Exam: Constitutional: Alert, cooperative. No acute distress Head, Ears, Nose: Normocephalic, atraumatic. External ears, nose normal Eyes: Conjunctivae/corneas clear. No icterus. No ptosis. Neck: Supple, no meningeal signs Cardiovascular: S1, S2 normal. Respiratory: Good air entry, clear to auscultation bilaterally GI: RUQ tenderness +; bowel sounds normal. No peritoneal signs Musculoskeletal: No pedal edema, no cyanosis. Skin: No rash or abscess Hem/Lymphatic: No palpable cervical or supraclavicular nodes. No lymphangitis Psych: Mood ok. Affect normal Neurological: Awake, alert, oriented. No gross abnormality - Constitutional Vitals: Vital Signs Temp Pulse Resp BP Pulse Ox 98.0 F 95 H 18 185/89 96 07/24/20 04:11 07/24/20 06:34 07/24/20 04:11 07/24/20 06:34 07/24/20 04:11 Temperature -Last 24 Hours Temperature 98.0 F Temperature 98.6 F Temperature 99.3 F Results - Labs CBC & Chem 7: 07/23/20 05:44 07/23/20 05:44 - Imaging and Cardiology Chest x-ray: report reviewed, image reviewed (RLL infiltrate) Assessment and Plan Cultures: 07/22/2020 blood culture: GNR 07/23/2020 blood culture: In process A/P: 50-year-old male with ESRD on HD, hypertension, gastroesophageal reflux disease was admitted to the hospital with fever, chills, nausea, vomiting as well as fatigue: #Sepsis, secondary to GNR bacteremia: Source is unclear. Pneumonia versus intra-abdominal/ source. CXR with RLL infiltrate. #ESRD on HD: Renally dose antibiotics. #Mild leukopenia, thrombocytopenia Recs: Continue ceftriaxone Azithromycin discontinued Follow-up COVID-19 PCR abdominal imaging ordered: CT and RUQ US Loren Pleitez MD, FACP [facility] ([facility] O: [phone] F: [phone]
[2020-07-24] MEDS: LOSARTAN 50 MG TAB PO SCH (12:56)
[2020-07-24] MEDS: FUROSEMIDE 40 MG TAB PO SCH (12:57)
--- NOTE | 2020-07-24 14:55 | Cat Scan Report ---
CT ABDOMEN AND PELVIS WITHOUT CONTRAST HISTORY: abdominal tenderness, sepsis COMPARISON: 01/12/2018 TECHNIQUE: Axial CT images were obtained through the abdomen and pelvis without IV contrast. Sagittal and coronal reformatted images. All CT scans at this location are performed using CT dose reduction for ALARA by means of automated exposure control. FINDINGS: CT ABDOMEN: Lung Bases: There is minor linear atelectasis in the left lower lobe. No infiltrate or effusion. Mild cardiomegaly appears slightly increased since the previous exam. Small pericardial effusion has deve loped. Liver: No significant abnormality. Biliary: No significant abnormality. Spleen: No significant abnormality. Unenlarged. Pancreas: No significant abnormality. Adrenals: No significant abnormality. Kidneys: Mild bilateral renal atrophy is evident and appears slightly progressed since the previous e xam. Previously described right nephrolithiasis is no longer seen. Stable 2.6 cm cyst in the inferior right kidney. No hydronephrosis. Lymphatics: No lymphadenopathy. Vasculature: Mild aortic and iliac calcifications. No aneurysm. Bowel/Peritoneum: No significant abnormality. No free air. No free fluid. Mild diverticulosis of the distal colon is again noted. The appendix is not confidently identified, correlate with surgical hist ory. CT PELVIS: : No significant abnormality. Osseous Structures: No significant abnormality. Additional Findings: None IMPRESSION: No acute inflammatory process is appreciated. Mild cardiomegaly, slightly increased since the previous exam. Small pericardial effusion. Mild renal atrophy. 2.6 cm right renal cyst. Mild diverticulosis of the distal colon. Signer Name: Nathan Handy Jr, MD Signed: 07/24/2020 2:50 PM Workstation Name: [id number]
[2020-07-24] MEDS: cefTRIAXone/NS 2 GM/100 ML 2 GM/100 ML BAG IV SCH (16:03)
--- NOTE | 2020-07-24 18:00 | Progress Note ---
Assessment and Plan --Sepsis Likely due to underlying pneumonia and bacteremia Continue empiric antibiotic, follow final culture result, consult ID -- Acute hypoxemic respiratory failure Likely due to underlying pneumonia, continue supplemental O2 and empiric antibiotics nebulizer breathing treatment as needed -- Pneumonia Continue supplemental oxygen, pulse oximetry, nebulizer therapy, blood culture, IV antibiotic therapy Will also rule out for COVID-19 --Gram-negative sheila bacteremia, continue empiric antibiotics consult ID Ordered for repeat blood culture -- ESRD (end stage renal disease) on dialysis Nephrology team consulted, dialysis per renal team, avoid nephrotoxic agents. -- Suspected 2019 novel coronavirus infection Coronavirus protocol: Contact precautions, isolation precautions, supplemental oxygen, nebulizer therapy, IV antibiotic therapy, IV steroid therapy, vitamin C therapy vitamin D therapy, zinc therapy, prophylactic anticoagulation --Mild hyponatremia, improved --Mild tachycardia, resolved --Anemia Likely due to chronic disease --Elevated D-dimer, likely due to underlying pneumonia Follow inflammatory markers, if remains elevated VQ scan -- DVT prophylaxis SCDs bilateral lower extremities while in bed, prophylactic anticoagulation Brief history: 50 YO Male with ESRD on HD(T,R,Sa), HTN, GERD, Nicotine Dependence, BARBARA presents to ED with generalized weakness, malaise, fatigue, decreased exercise tolerance, multiple episodes of nausea, several episodes of vomiting over the past 3 days. The patient was found to have a pulse oximetry of 88% with exertion, fever to 102.5 F, with respiratory rate in the 30s, and a heart rate in the 120s. Chest x-rays are stable bilateral pneumonia. Patient was admitted to the hospital hypoxemia, pneumonia and PUIN for COVID-19. 07/23: Continue empiric antibiotic, continue supplemental O2 and nebulizer breathing treatment. Wait for COVID-19 test result. Nephrology consulted for hemodialysis. Blood culture positive for gram-negative rods, continue Rocephin, repeat blood culture, consult ID 07/24: Continue empiric antibiotic, consulted ID. Patient being treated for sepsis secondary to GNR bacteremia: Source is unclear. CXR with RLL infiltrate. Order for CT abdomen pelvis and right upper quadrant abdominal ultrasound. Continue to follow clinically Subjective Date of service: 07/24/20 Interval history: Patient seen and examined. Medical records and medication list reviewed. No acute event overnight noted by the RN. Patient denies any chest pain, resting on bed comfortably. Patient is tolerating diet. Blood culture came positive for gram-negative sheila Discussed plan of care at bedside with patient. Objective - Exam Narrative Exam: Limited physical exam due to COVID-19 pandemic to minimize transmission of the disease and to preserve PPE. Vital reviewed and stable. GENERAL: well-developed well-nourished lying on bed appeared to be in no discomfort. HEENT: Normocephalic. Atraumatic. NECK: Supple. CHEST/LUNGS: breathing nonlabored. HEART/CARDIOVASCULAR: Heart rate stable on telemetry ABDOMEN: Visibly not distended SKIN: There is no rash NEURO: No focal motor deficit. Follows command. MUSCULOSKELETAL: No joint effusion EXTRIMITY: No swelling, no cyanosis or clubbing. PSYCH: Cooperative. - Constitutional Vitals: Vital Signs - 12hr 07/24/20 07/24/20 07/24/20 06:25 06:34 10:00 Temperature Pulse Rate 95 H 95 H Respiratory Rate Blood Pressure 185/89 185/89 O2 Sat by Pulse 97 Oximetry 07/24/20 13:03 Temperature 98.1 F Pulse Rate 90 Respiratory 22 Rate Blood Pressure 168/82 O2 Sat by Pulse 94 Oximetry - Labs CBC & Chem 7: 07/23/20 05:44 07/23/20 05:44 HEART Score - HEART Score Troponin: Troponin T 0.103 ng/mL (0.00-0.029) H* 07/22/20 15:23
[2020-07-24] MEDS: BENZONATATE 100 MG CAP PO PRN (21:12)
[2020-07-24] MEDS: carvediloL 12.5 MG TAB PO SCH (23:39)
[2020-07-25] MEDS: hydrALAZINE 20 MG/1 ML INJ IV PRN ×2 (03:46→13:20)
[2020-07-25] MEDS: ACETAMINOPHEN 325 MG TAB PO PRN (03:46)
[2020-07-25] MEDS: hydrALAZINE 25 MG TAB PO SCH ×3 (07:09→21:06)
[2020-07-25] MEDS: CALCIUM ACETATE 667 MG CAP PO SCH ×3 (08:00→16:38)
[2020-07-25] MEDS: carvediloL 12.5 MG TAB PO SCH ×2 (08:00→16:38)
--- NOTE | 2020-07-25 08:07 | Progress Note ---
Assessment and Plan 1. ESRD: Patient is on mainteneance hemodialysis three times a week, TTS schedule. Last outpatient hemodialysis was on 07/22. Meds dosage based on GFR. Hemodialysis: 07/25. 2. FEN: Monitor lytes and volume status. 3. R LL PNA: Abx for CAP. Covid test negative. 4. Sepsis: Likely 2/2 PNA. E.Coli bacteremia. Sepsis protocol. 5. Acute hypoxemic respiratory failure, POA: 2/2 PNA. Supplemental oxygen, pulse oximetry, nebulizer therapy, noninvasive positive pressure ventilation as clinically indicated. 6. Hypertension: Adjust meds as appropriate. Aldosterine: Renin level and Renal artery duplex ordered. 7. Anemia and thrombocytopenia. 8. Tobacco smoking. Subjective: Patient was seen and examined at the bedside. Doing ok. General Appearance: General appearance: well-developed, appears stated age, not in distress HEENT: ATNC, pupils equal Neck: neck supple, trachea midline Respiratory: ctab Heart: regular, S1S2, no murmur Abdomen: soft, normoactive bowel sounds, not tender Integumentary: no rash, warm and dry Neurologic: AO, non-focal Ext: no edema Hemodialysis access: R arm AVF / AVG Subjective Date of service: 07/25/20 Objective - Vital Signs Vital signs: Vital Signs - 12hr 07/24/20 07/24/20 07/24/20 21:09 21:50 22:00 Temperature 98.8 F 98.6 F Pulse Rate 91 H 89 Respiratory 18 20 18 Rate Blood Pressure 186/91 180/78 O2 Sat by Pulse 100 93 98 Oximetry 07/25/20 07/25/20 07/25/20 03:46 03:49 07:04 Temperature 97.9 F Pulse Rate 87 83 Respiratory 18 20 18 Rate Blood Pressure 170/83 173/87 O2 Sat by Pulse 98 98 Oximetry - Lab 07/26/20 09:19 07/26/20 09:19 Most recent lab results Calcium 8.4 mg/dL (8.4-10.2) 07/23/20 05:44 Magnesium 1.90 mg/dL (1.7-2.3) 07/22/20 16:51 Medications & Allergies - Medications Allergies/Adverse Reactions: Allergies No Known Allergies Allergy (Verified 07/25/20 13:03) Home Medications: Home Medications Medication Instructions Recorded Confirmed Last Taken Type amLODIPine 10 mg PO DAILY 01/22/18 07/24/20 Unknown History Calcium Acetate [Phoslo] 1,334 mg PO TIDWM #60 capsule 01/28/18 07/24/20 Unknown Rx Nicotine [Habitrol] 21 mg TD DAILY #30 patch 01/28/18 07/24/20 Unknown Rx Albuterol Mdi (or & Nicu Only) 2 puff IH QID PRN #1 each 03/11/19 07/24/20 Unknown Rx [ProAir HFA Inhaler] Benzonatate [Tessalon Perles] 100 mg PO Q8HR PRN #30 capsule 03/11/19 07/24/20 Unknown Rx Capsaicin 0.075% [Zostrix Hp 1 applicatio TP TID PRN #1 tube 10/30/19 07/24/20 Unknown Rx 0.075%] Aspirin EC [Halfprin EC] 81 mg PO QDAY #30 tablet. 07/26/20 Unknown Rx Ciprofloxacin HCl [Ciprofloxacin 500 mg PO DAILY 7 Days #10 tablet 07/26/20 Unknown Rx TAB] Furosemide [Lasix TAB] 80 mg PO QDAY #30 tablet 07/26/20 Unknown Rx Losartan [Cozaar] 100 mg PO QDAY #30 tablet 07/26/20 Unknown Rx carvediloL [Coreg] 25 mg PO BID@0800,1700 #60 tablet 07/26/20 Unknown Rx hydrALAZINE [Apresoline TAB] 100 mg PO Q8HR #90 tab 07/26/20 Unknown Rx Active Medications: Generic Name Dose Route Start Last Admin Trade Name Malia PRN Reason Stop Dose Admin Acetaminophen 650 mg 07/22/20 16:52 07/25/20 03:46 Acetaminophen 325 Mg Tab PO 650 mg Q4H PRN Administration Pain MILD(1-3)/Fever >100.5/HUBER Albuterol 2.5 mg 07/22/20 16:52 Albuterol 2.5 Mg/3 Ml Nebu IH Q4H PRN Shortness Of Breath Amlodipine Besylate 10 mg 07/23/20 10:00 07/24/20 09:00 Amlodipine 10 Mg Tab PO 10 mg DAILY JIMMY Administration Benzonatate 100 mg 07/22/20 16:55 07/24/20 21:12 Benzonatate 100 Mg Cap PO 100 mg Q8H PRN Administration Cough Calcium Acetate 1,334 mg 07/22/20 17:00 07/24/20 16:03 Calcium Acetate 667 Mg Cap PO 1,334 mg TIDWM JIMMY Administration Capsaicin 1 applic 07/22/20 16:55 Capsaicin 0.075% Cream 60 Gm TP TID PRN joint PAIN Carvedilol 12.5 mg 07/24/20 22:38 07/24/20 23:39 Carvedilol 12.5 Mg Tab PO Not Given BID@0800,1700 JIMMY Famotidine 10 mg 07/22/20 22:00 07/24/20 21:11 Famotidine 10 Mg Tab PO 10 mg BID JIMMY Administration Furosemide 80 mg 07/24/20 13:00 07/24/20 12:57 Furosemide 40 Mg Tab PO 80 mg QDAY JIMMY Administration Hydralazine HCl 50 mg 07/22/20 22:00 07/25/20 07:09 Hydralazine 25 Mg Tab PO 50 mg Q8HR JIMMY Administration Hydralazine HCl 5 mg 07/23/20 16:23 07/25/20 03:46 Hydralazine 20 Mg/1 Ml Inj IV 5 mg Q30MIN PRN Administration Hypertension Hydromorphone HCl 0.25 mg 07/22/20 16:52 Hydromorphone 1 Mg/1 Ml Inj IV Q4H PRN Pain, Moderate (4-6) Ceftriaxone Sodium 2 gm in 100 mls @ 200 mls/hr 07/23/20 17:00 07/24/20 16:03 Rocephin/Ns 2 Gm/100 Ml IV 200 mls/hr Q24H JIMMY Administration Protocol Losartan Potassium 100 mg 07/24/20 13:00 07/24/20 12:56 Losartan 50 Mg Tab PO 100 mg QDAY JIMMY Administration Nicotine 21 mg 07/22/20 18:00 07/24/20 09:00 Nicotine 21 Mg/24 Hr Patch TD 21 mg DAILY JIMMY Administration Ondansetron HCl 4 mg 07/22/20 16:52 07/22/20 17:17 Ondansetron 4 Mg/2 Ml Inj IV 4 mg Q8H PRN Administration Nausea And Vomiting Sodium Chloride 10 ml 07/22/20 22:00 07/24/20 21:11 Sodium Chloride 0.9% 10 Ml Flush Syringe IV 10 ml BID JIMMY Administration Sodium Chloride 10 ml 07/22/20 16:52 Sodium Chloride 0.9% 10 Ml Flush Syringe IV PRN PRN LINE FLUSH
[2020-07-25] MEDS ORDERED: SODIUM CHLORIDE 0.9% 100 ML IV PRN (08:08)
--- NOTE | 2020-07-25 09:12 | Ultrasound Report ---
LIMITED RUQ ABDOMINAL ULTRASOUND INDICATION: tenderness, sepsis. COMPARISON: CT abdomen/pelvis from yesterday. FINDINGS: Pancreas: Visualized portions show no significant abnormality. Abdominal Aorta: Normal size. IVC: No significant abnormality. Liver: The liver measures 17.8 cm in length. No significant abnormality. Normal hepatopedal blood fl ow in the main portal vein. Gallbladder: No significant abnormality. Bile ducts: No significant abnormality. Common bile duct measures 2 mm. Right kidney: Atrophic and echogenic, measuring 8.5 cm in length and 5 mm parenchymal thickness. Simp le cysts, largest in the lower pole measuring 3.1 cm. Free fluid: None. Additional Findings: None. IMPRESSION: 1. No acute abnormality identified. 2. Atrophic and echogenic appearance of the right kidney. 3. Hepatomegaly. Signer Name: Loco Valentin MD Signed: 07/25/2020 9:08 AM Workstation Name: [id number]
[2020-07-25] MEDS: LOSARTAN 50 MG TAB PO SCH (10:00)
[2020-07-25 11:00] LABS: Hepatitis B Surface Antigen Non-Reactive (Negative); Hepatitis C Virus Antibody Non-Reactive (NonReactive)
--- NOTE | 2020-07-25 12:49 | Electrocardiograph Report ---
[facility] Test Date: 2020-07-22 Test Time: 16:45:34 Pat Name: KELSY BALBUENA Department: Room: A363 Gender: M [employer]: LAZARUS : 1970 Requested By: ANGEL CHÁVEZ Order Number: [id number] Reading MD: Ana Fajardo Measurements Intervals [place] Rate: 95 P: 49 FL: 178 QRS: 56 QRSD: 83 T: 29 QT: 343 QTc: 433 Interpretive Statements Sinus rhythm Probable left atrial enlargement Probable left ventricular hypertrophy No previous ECG available for comparison Electronically Signed On 07-25-2020 12:49:21 EDT by Ana Fajardo
--- NOTE | 2020-07-25 13:56 | Progress Note ---
Assessment and Plan Cultures: COVID-19 PCR: Negative 07/22/2020 blood culture: E. coli 07/23/2020 blood culture: No growth A/P: 50-year-old male with ESRD on HD, hypertension, gastroesophageal reflux disease was admitted to the hospital with fever, chills, nausea, vomiting as well as fatigue: #Sepsis, secondary to E.coli bacteremia: Source is unclear. Pneumonia versus intra-abdominal/ source. CXR with RLL infiltrate. Urine culture is still pending. RUQ ultrasound showed some hepatomegaly. CT abdomen pelvis did not reveal any acute inflammatory process. #ESRD on HD: Renally dose antibiotics. #Mild leukopenia, thrombocytopenia Recs: -Antibiotics switched to IV cefepime -If blood cultures remain negative at 48 hours, okay for discharge tomorrow on p.o. ciprofloxacin 500 mg daily for 7 days Loren Pleitez MD, FACP [facility] ([facility]) O: [phone] F: [phone] Subjective Date of service: 07/25/20 Interval history: seen at dialysis. Has no complaints. No fever. Feels fine and hoping to go home Objective - Exam Narrative Exam: Physical Exam: Constitutional: Alert, cooperative. No acute distress Head, Ears, Nose: Normocephalic, atraumatic. External ears, nose normal Eyes: Conjunctivae/corneas clear. No icterus. No ptosis. Neck: Supple, no meningeal signs Cardiovascular: S1, S2 normal. Respiratory: Good air entry, clear to auscultation bilaterally GI:soft, non tender bowel sounds normal. No peritoneal signs Musculoskeletal: No pedal edema, no cyanosis. Skin: No rash or abscess Hem/Lymphatic: No palpable cervical or supraclavicular nodes. No lymphangitis Psych: Mood ok. Affect normal Neurological: Awake, alert, oriented. No gross abnormality - Constitutional Vitals: Vital Signs Temp Pulse Resp BP Pulse Ox 97.9 F 86 18 197/101 98 07/25/20 09:50 07/25/20 13:00 07/25/20 09:50 07/25/20 13:00 07/25/20 07:04 Temperature -Last 24 Hours Temperature 97.9 F Temperature 97.9 F Temperature 98.6 F Temperature 98.8 F Temperature 98.0 F - Labs CBC & Chem 7: 05/02/21 05:44 07/23/20 05:44
--- NOTE | 2020-07-25 14:14 | Progress Note ---
Assessment and Plan --Sepsis Likely due to underlying pneumonia and bacteremia Continue empiric antibiotic, follow final culture result, consulted ID -- Acute hypoxemic respiratory failure Likely due to underlying pneumonia, continue supplemental O2 and empiric antibiotics nebulizer breathing treatment as needed -- Pneumonia Continue supplemental oxygen, pulse oximetry, nebulizer therapy, blood culture, IV antibiotic therapy Negative for COVID-19 --Gram-negative sheila bacteremia, continue empiric antibiotics consult ID Ordered for repeat blood culture -- ESRD (end stage renal disease) on dialysis Nephrology team consulted, dialysis per renal team, avoid nephrotoxic agents. --Hypertension, accelerated Continue current antihypertensives and continue to adjust medications to keep SBP less than 140 -- Suspected 2019 novel coronavirus infection, ruled out with negative test --Mild hyponatremia, improved --Mild tachycardia, resolved --Anemia Likely due to chronic disease --Elevated D-dimer, likely due to underlying pneumonia Follow inflammatory markers, if remains elevated VQ scan --Elevated troponin, NSTEMI type II likely due to underlying end-stage renal disease and sepsis Continue to trend, get 2D echocardiogram -- DVT prophylaxis SCDs bilateral lower extremities while in bed, prophylactic anticoagulation Brief history: 50 YO Male with ESRD on HD(T,R,Sa), HTN, GERD, Nicotine Dependence, BARBARA presents to ED with generalized weakness, malaise, fatigue, decreased exercise tolerance, multiple episodes of nausea, several episodes of vomiting over the past 3 days. The patient was found to have a pulse oximetry of 88% with exertion, fever to 102.5 F, with respiratory rate in the 30s, and a heart rate in the 120s. Chest x-rays are stable bilateral pneumonia. Patient was admitted to the hospital hypoxemia, pneumonia and PUIN for COVID-19. 07/23: Continue empiric antibiotic, continue supplemental O2 and nebulizer breathing treatment. Wait for COVID-19 test result. Nephrology consulted for hemodialysis. Blood culture positive for gram-negative rods, continue Rocephin, repeat blood culture, consult ID 07/24: Continue empiric antibiotic, consulted ID. Patient being treated for sepsis secondary to GNR bacteremia: Source is unclear. CXR with RLL infiltrate. Order for CT abdomen pelvis and right upper quadrant abdominal ultrasound. Continue to follow clinically. Covid test result pending 07/25: Negative for Covid. CT abdomen pelvis and right upper quadrant ultrasound did not show any focus for intra-abdominal infection. -Antibiotics switched to IV cefepime. -If blood cultures remain negative at 48 hours, per ID okay for discharge tomorrow on p.o. ciprofloxacin 500 mg daily for 7 days. Order for CBC and BMP tomorrow morning. Continue current chest hypertensive medications: Obtain 2D echo Subjective Date of service: 07/25/20 Interval history: Patient seen and examined. Medical records and medication list reviewed. No acute event overnight noted by the RN. Patient denies any chest pain, resting on bed comfortably. Patient is tolerating diet. Repeat blood culture is negative at 24 hours Covid test result is negative Discussed plan of care at bedside with patient. Objective - Exam Narrative Exam: GENERAL: well-developed and well-nourished -[place] male lying on bed appeared to be in no discomfort. HEENT: Normocephalic. Atraumatic. No conjunctival congestion or icterus. Patient has moist mucous membranes. NECK: Supple. Trachea midline. CHEST/LUNGS: Clear to auscultated bilaterally, breathing nonlabored. No wheezes crackles or rhonchi. HEART/CARDIOVASCULAR: Regular in rate and rhythm. S1 and S2 positive. ABDOMEN: Abdomen is soft, nontender. Patient has normal bowel sounds. SKIN: There is no rash. Warm and dry. NEURO: No focal motor deficit. Follows command. MUSCULOSKELETAL: No joint effusion or tenderness. EXTRIMITY: No edema, no cyanosis or clubbing. PSYCH: Cooperative. - Constitutional Vitals: Vital Signs - 12hr 07/25/20 07/25/20 07/25/20 03:46 03:49 07:04 Temperature 97.9 F Pulse Rate 87 83 Respiratory 18 20 18 Rate Blood Pressure 170/83 173/87 O2 Sat by Pulse 98 98 Oximetry O2 Sat by Pulse Oximetry [ Throughout] 07/25/20 07/25/20 07/25/20 09:50 10:15 10:30 Temperature 97.9 F Pulse Rate 89 85 85 Respiratory 18 Rate Blood Pressure 173/85 176/88 178/89 O2 Sat by Pulse Oximetry O2 Sat by Pulse Oximetry [ Throughout] 07/25/20 07/25/20 07/25/20 10:45 11:00 11:15 Temperature Pulse Rate 93 H 88 91 H Respiratory Rate Blood Pressure 159/97 178/85 184/94 O2 Sat by Pulse Oximetry O2 Sat by Pulse Oximetry [ Throughout] 07/25/20 07/25/20 07/25/20 11:30 11:45 12:00 Temperature Pulse Rate 81 90 91 H Respiratory Rate Blood Pressure 184/88 167/88 179/97 O2 Sat by Pulse Oximetry O2 Sat by Pulse Oximetry [ Throughout] 07/25/20 07/25/20 07/25/20 12:15 12:30 12:45 Temperature Pulse Rate 87 91 H 89 Respiratory Rate Blood Pressure 194/84 166/93 173/90 O2 Sat by Pulse Oximetry O2 Sat by Pulse Oximetry [ Throughout] 07/25/20 07/25/20 07/25/20 13:00 13:20 13:50 Temperature 98.0 F Pulse Rate 86 88 98 H Respiratory 18 Rate Blood Pressure 197/101 184/86 166/86 O2 Sat by Pulse Oximetry O2 Sat by Pulse 100 Oximetry [ Throughout] - Labs CBC & Chem 7: 07/23/20 05:44 07/23/20 05:44 HEART Score - HEART Score Troponin: Troponin T 0.103 ng/mL (0.00-0.029) H* 07/22/20 15:23
[2020-07-25] MEDS ORDERED: CEFEPIME/NS 2 GM/100 ML 2 GM/100 ML BAG IV SCH (15:00)
[2020-07-25] MEDS: FUROSEMIDE 40 MG TAB PO SCH (15:15)
[2020-07-25] MEDS: amLODIPine 10 MG TAB PO SCH (15:16)
[2020-07-25] MEDS: NICOTINE 21 MG/24 HR PATCH TD SCH (15:16)
[2020-07-25] MEDS: FAMOTIDINE 10 MG TAB PO SCH ×2 (15:16→21:05)
[2020-07-25] MEDS: carvediloL 25 MG TAB PO SCH (23:21)
[2020-07-26 05:34] VITALS: BP 154/74
[2020-07-26] MEDS: hydrALAZINE 25 MG TAB PO SCH (05:35)
[2020-07-26] MEDS ORDERED: hydrALAZINE 25 MG TAB PO SCH (08:13)
[2020-07-26] MEDS: CALCIUM ACETATE 667 MG CAP PO SCH ×2 (09:29→16:32)
[2020-07-26] MEDS: carvediloL 25 MG TAB PO SCH (09:29)
[2020-07-26 09:46] LABS: Basophils # (Auto) 0.1 K/mm3 (0.0-0.1); Eosinophils # (Auto) 0.1 K/mm3 (0.0-0.4); Eosinophils % (Auto) 1.5 % (0.0-4.3); Hematocrit 33.6 % (35.5-45.6); Hemoglobin 11.4 gm/dl (11.8-15.2); Lymphocytes % (Auto) 18.1 % (13.4-35.0); Mean Corpuscular HGB Conc 34 % (32-34); Mean Corpuscular Volume 105 fl (84-94); Monocytes # (Auto) 0.9 K/mm3 (0.0-0.8); Monocytes % (Auto) 15.3 % (0.0-7.3); Platelet Count 122 K/mm3 (140-440); Red Blood Count 3.21 M/mm3 (3.65-5.03); Red Cell Distribution Width 16.2 % (13.2-15.2)
[2020-07-26 10:07] LABS: Calcium 9.3 mg/dL (8.4-10.2)
--- NOTE | 2020-07-26 10:33 | Progress Note ---
Assessment and Plan 1. ESRD: Patient is on mainteneance hemodialysis three times a week, TTS schedule. Last outpatient hemodialysis was on 07/22. Meds dosage based on GFR. Hemodialysis: 07/25. 2. FEN: Monitor lytes and volume status. 3. R LL PNA: Abx for CAP. Covid test negative. 4. Sepsis: Likely 2/2 PNA. E.Coli bacteremia. Sepsis protocol. 5. Acute hypoxemic respiratory failure, POA: 2/2 PNA. Supplemental oxygen, pulse oximetry, nebulizer therapy, noninvasive positive pressure ventilation as clinically indicated. 6. Hypertension: Adjust meds as appropriate. Aldosterine: Renin level and Renal artery duplex ordered. 7. Anemia and thrombocytopenia. 8. Tobacco smoking. Subjective: Patient was seen and examined at the bedside. Doing ok. General Appearance: General appearance: well-developed, appears stated age, not in distress HEENT: ATNC, pupils equal Neck: neck supple, trachea midline Respiratory: ctab Heart: regular, S1S2, no murmur Abdomen: soft, normoactive bowel sounds, not tender Integumentary: no rash, warm and dry Neurologic: AO, non-focal Ext: no edema Hemodialysis access: R arm AVF / AVG Subjective Date of service: 07/26/20 Objective - Vital Signs Vital signs: Vital Signs - 12hr 07/26/20 07/26/20 04:05 05:35 Temperature 98.6 F Pulse Rate 77 Respiratory 20 Rate Blood Pressure 154/74 154/74 O2 Sat by Pulse 100 Oximetry - Lab 07/26/20 09:19 07/26/20 09:19 Most recent lab results Calcium 9.3 mg/dL (8.4-10.2) 07/26/20 09:19 Magnesium 1.90 mg/dL (1.7-2.3) 07/22/20 16:51 Medications & Allergies - Medications Allergies/Adverse Reactions: Allergies No Known Allergies Allergy (Verified 07/25/20 13:03) Home Medications: Home Medications Medication Instructions Recorded Confirmed Last Taken Type amLODIPine 10 mg PO DAILY 01/22/18 07/24/20 Unknown History Calcium Acetate [Phoslo] 1,334 mg PO TIDWM #60 capsule 01/28/18 07/24/20 Unknown Rx Nicotine [Habitrol] 21 mg TD DAILY #30 patch 01/28/18 07/24/20 Unknown Rx Albuterol Mdi (or & Nicu Only) 2 puff IH QID PRN #1 each 03/11/19 07/24/20 Unknown Rx [ProAir HFA Inhaler] Benzonatate [Tessalon Perles] 100 mg PO Q8HR PRN #30 capsule 03/11/19 07/24/20 Unknown Rx Capsaicin 0.075% [Zostrix Hp 1 applicatio TP TID PRN #1 tube 10/30/19 07/24/20 Unknown Rx 0.075%] Aspirin EC [Halfprin EC] 81 mg PO QDAY #30 tablet. 07/26/20 Unknown Rx Ciprofloxacin HCl [Ciprofloxacin 500 mg PO DAILY 7 Days #10 tablet 07/26/20 Unknown Rx TAB] Furosemide [Lasix TAB] 80 mg PO QDAY #30 tablet 07/26/20 Unknown Rx Losartan [Cozaar] 100 mg PO QDAY #30 tablet 07/26/20 Unknown Rx carvediloL [Coreg] 25 mg PO BID@0800,1700 #60 tablet 07/26/20 Unknown Rx hydrALAZINE [Apresoline TAB] 100 mg PO Q8HR #90 tab 07/26/20 Unknown Rx Active Medications: Generic Name Dose Route Start Last Admin Trade Name Freq PRN Reason Stop Dose Admin Acetaminophen 650 mg 07/22/20 16:52 07/25/20 03:46 Acetaminophen 325 Mg Tab PO 650 mg Q4H PRN Administration Pain MILD(1-3)/Fever >100.5/HUBER Albuterol 2.5 mg 07/22/20 16:52 Albuterol 2.5 Mg/3 Ml Nebu IH Q4H PRN Shortness Of Breath Amlodipine Besylate 10 mg 07/23/20 10:00 07/25/20 15:16 Amlodipine 10 Mg Tab PO 10 mg DAILY JIMMY Administration Benzonatate 100 mg 07/22/20 16:55 07/24/20 21:12 Benzonatate 100 Mg Cap PO 100 mg Q8H PRN Administration Cough Calcium Acetate 1,334 mg 07/22/20 17:00 07/26/20 09:29 Calcium Acetate 667 Mg Cap PO Not Given TIDWM JIMMY Capsaicin 1 applic 07/22/20 16:55 Capsaicin 0.075% Cream 60 Gm TP TID PRN joint PAIN Carvedilol 25 mg 07/25/20 22:00 07/26/20 09:29 Carvedilol 25 Mg Tab PO Not Given BID@0800,1700 JIMMY Famotidine 10 mg 07/22/20 22:00 07/25/20 21:05 Famotidine 10 Mg Tab PO 10 mg BID JIMMY Administration Furosemide 80 mg 07/24/20 13:00 07/25/20 15:15 Furosemide 40 Mg Tab PO 80 mg QDAY JIMMY Administration Hydralazine HCl 5 mg 07/23/20 16:23 07/25/20 13:20 Hydralazine 20 Mg/1 Ml Inj IV 5 mg Q30MIN PRN Administration Hypertension Hydralazine HCl 100 mg 07/26/20 14:00 Hydralazine 100 Mg Tab PO Q8HR JIMMY Hydromorphone HCl 0.25 mg 07/22/20 16:52 07/25/20 21:06 Hydromorphone 1 Mg/1 Ml Inj IV 0.25 mg Q4H PRN Administration Pain, Moderate (4-6) Sodium Chloride 100 mls @ 999 mls/hr 07/25/20 08:08 Nacl 0.9% IV HA PRN Hypotension Cefepime HCl 2 gm in 100 mls @ 200 mls/hr 07/25/20 15:00 07/25/20 15:00 Cefepime/Ns 2 Gm/100 Ml IV 200 mls/hr QPM JIMMY Administration Protocol Losartan Potassium 100 mg 07/24/20 13:00 07/25/20 10:00 Losartan 50 Mg Tab PO Not Given QDAY JIMMY Nicotine 21 mg 07/22/20 18:00 07/25/20 15:16 Nicotine 21 Mg/24 Hr Patch TD 21 mg DAILY JIMMY Administration Ondansetron HCl 4 mg 07/22/20 16:52 07/22/20 17:17 Ondansetron 4 Mg/2 Ml Inj IV 4 mg Q8H PRN Administration Nausea And Vomiting Sodium Chloride 10 ml 07/22/20 22:00 07/25/20 21:07 Sodium Chloride 0.9% 10 Ml Flush Syringe IV 10 ml BID JIMMY Administration Sodium Chloride 10 ml 07/22/20 16:52 Sodium Chloride 0.9% 10 Ml Flush Syringe IV PRN PRN LINE FLUSH
--- NOTE | 2020-07-26 11:06 | Discharge Summary ---
Providers - Providers Date of Admission: 07/22/20 16:52 Date of discharge: 07/26/20 Attending physician: TI RENO 07/22/20 16:38 Consult to Physician [CONS] Urgent Comment: Consulting Provider: FLORIAN TAVAREZ Physician Instructions: Reason For Exam: esrd, sepsis 07/23/20 12:51 Consult to Physician [CONS] Routine Comment: Consulting Provider: MELISA REDD Physician Instructions: Reason For Exam: gm -ve bacteremia Primary care physician: [employer] Hospitalization Condition: Fair Pertinent studies: Chest x-ray, abdominal ultrasound, abdomen pelvis CT Hospital course: 50 YO Male with ESRD on HD(T,R,Sa), HTN, GERD, Nicotine Dependence, BARBARA presents to ED on 07/22/2020 with generalized weakness, malaise, fatigue, decreased exercise tolerance, multiple episodes of nausea, several episodes of vomiting over the past 3 days. The patient was found to have a pulse oximetry of 88% with exertion, fever to 102.5 F, with respiratory rate in the 30s, and a heart rate in the 120s. Chest x-rays are stable bilateral pneumonia. Patient was admitted to the hospital hypoxemia, pneumonia and PUI for COVID-19. His COVID- 19 test was negative, his blood culture grew E. coli bacteremia. Patient's antibiotic was adjusted, repeat blood culture obtained and repeat blood culture was negative at 48 hours. Patient symptom improved, hemodialysis was managed by medical staff services coordinator. Infectious disease doctor consulted and recommended to discharge patient home with ciprofloxacin 500 mg daily for 7 days. Discharge plan and management was discussed with the patient and he verbalized understanding. Patient was then discharged home in stable condition with outpatient follow-up. Daily clinical course: 07/23: Continue empiric antibiotic, continue supplemental O2 and nebulizer breathing treatment. Wait for COVID-19 test result. Nephrology consulted for hemodialysis. Blood culture positive for gram-negative rods, continue Rocephin, repeat blood culture, consult ID 07/24: Continue empiric antibiotic, consulted ID. Patient being treated for sepsis secondary to GNR bacteremia: Source is unclear. CXR with RLL infiltrate. Order for CT abdomen pelvis and right upper quadrant abdominal ultrasound. Continue to follow clinically. Covid test result pending 07/25: Negative for Covid. CT abdomen pelvis and right upper quadrant ultrasound did not show any focus for intra-abdominal infection. -Antibiotics switched to IV cefepime. -If blood cultures remain negative at 48 hours, per ID okay for discharge tomorrow on p.o. ciprofloxacin 500 mg daily for 7 days. Order for CBC and BMP tomorrow morning. Continue current chest hypertensive medications: Obtain 2D echo 07/26:, Vitals noted and appears to be stable. Patient has no acute issues today. Repeat blood cultures negative at 48 hours. Patient to discharge home today with ciprofloxacin 500 mg daily for 7 days per ID recommendation. Disposition: DC-01 TO HOME OR SELFCARE Final Discharge Diagnosis (Prints w/discharge instructions): Sepsis due to underlying pneumonia and bacteremia. Community-acquired pneumonia. Acute hypoxic respiratory failure resolved. E. coli bacteremia. End-stage renal disease on hemodialysis. Hypertension accelerated. PUI COVID-19 ruled out. Mild hyponatremia resolved improved. Mild sinus tachycardia resolved. Anemia due to chronic disease. Elevated D-dimer due to underlying pneumonia. Elevated troponin likely NSTEMI type II from underlying chronic renal disease and sepsis Time spent for discharge: 34 minutes Core Measure Documentation - Palliative Care Palliative Care/ Comfort Measures: Not Applicable - Core Measures Any of the following diagnoses?: none Exam - Physical Exam Narrative exam: GENERAL: well-developed and well-nourished -[place] male lying on bed appeared to be in no discomfort. HEENT: Normocephalic. Atraumatic. No conjunctival congestion or icterus. Patient has moist mucous membranes. NECK: Supple. Trachea midline. CHEST/LUNGS: Clear to auscultated bilaterally, breathing nonlabored. No wheezes crackles or rhonchi. HEART/CARDIOVASCULAR: Regular in rate and rhythm. S1 and S2 positive. ABDOMEN: Abdomen is soft, nontender. Patient has normal bowel sounds. SKIN: There is no rash. Warm and dry. NEURO: No focal motor deficit. Follows command. MUSCULOSKELETAL: No joint effusion or tenderness. EXTRIMITY: No edema, no cyanosis or clubbing. PSYCH: Cooperative. - Constitutional Vitals: Temp Pulse Resp BP Pulse Ox 98.6 F 77 20 154/74 100 07/26/20 04:05 07/26/20 04:05 07/26/20 04:05 07/26/20 05:35 07/26/20 04:05 Plan Activity: advance as tolerated Weight Bearing Status: Weight Bear as Tolerated Diet: renal Special Instructions: restrict fluid intake to (1.2l daily), record daily weights Follow up with: PRIMARY CARE, [Primary Care Provider] - 3-5 Days MELISA REDD MD [Staff Physician] - 7 Days Prescriptions: hydrALAZINE [Apresoline TAB] 100 mg PO Q8HR #90 tab Ciprofloxacin HCl [Ciprofloxacin TAB] 500 mg PO DAILY 7 Days #10 tablet carvediloL [Coreg] 25 mg PO BID@0800,1700 #60 tablet Losartan [Cozaar] 100 mg PO QDAY #30 tablet Aspirin EC [Halfprin EC] 81 mg PO QDAY #30 tablet. Furosemide [Lasix TAB] 80 mg PO QDAY #30 tablet
--- NOTE | 2020-07-26 13:52 | Vascular Lab Report ---
ULTRASOUND RENAL ARTERY DUPLEX IMAGING INDICATION / CLINICAL INFORMATION: Renal artery stenosis.. COMPARISON: 07/25/2020. FINDINGS: There are elevated velocities throughout the aorta, including the SMA and celiac arteries. The aorta measures 293 cm/s proximally, 316 cm/s at the midportion, and 191 cm/s distally. The celiac measures 210 cm/s and the SMA measures 283 cm/s. Renal artery ratios are unable to be evaluated in this settin g. RIGHT KIDNEY: Size = 7.1 cm. - Echogenicity: Increased - Cortical thickness: Thinning of renal cortex - Hydronephrosis: None. - Cyst or mass: Renal cysts again noted. - Stones: None seen.. Right renal artery velocities (proximal, mid, distal) in cm/s: 103, 73, 57 LEFT KIDNEY: Size = 8.4 cm. - Echogenicity: Increased - Cortical thickness: Thinning of the renal cortex - Hydronephrosis: None. - Cyst or mass: Left renal cysts again noted. - Stones: None seen.. Left renal artery velocities (proximal, mid, distal) in cm/s: 172, 78, 97 IMPRESSION 1. Significantly elevated velocities of the aorta, SMA, and celiac arteries. Renal artery ratios are unable to be appropriately evaluated in this setting. Proximal left renal artery velocity is elevated at 172 cm/s, though this is nonspecific. 2. Findings of chronic medical renal disease with bilateral renal cysts. No acute sonographic abnorma lity. Signer Name: Geo Naavs MD Signed: 07/26/2020 1:48 PM Workstation Name: [id number]
--- NOTE | 2020-07-26 13:59 | Progress Note ---
Assessment and Plan Cultures: COVID-19 PCR: Negative 07/22/2020 blood culture: E. coli 07/23/2020 blood culture: No growth A/P: 50-year-old male with ESRD on HD, hypertension, gastroesophageal reflux disease was admitted to the hospital with fever, chills, nausea, vomiting as well as fatigue: #Sepsis, secondary to E.coli bacteremia: Source is unclear. Pneumonia versus intra-abdominal/ source. CXR with RLL infiltrate. Urine culture is still pending. RUQ ultrasound showed some hepatomegaly. CT abdomen pelvis did not reveal any acute inflammatory process. #ESRD on HD: Renally dose antibiotics. #Mild leukopenia, thrombocytopenia Recs: -blood cultures have remained negative, OK for discharge on p.o. ciprofloxacin 500 mg daily for 7 days Loren Pleitez MD, FACP [facility] ([facility] O: [phone] F: [phone] Subjective Date of service: 07/26/20 Interval history: Doing well, no complaints. Sitting in a chair. Ready to go home. Objective - Exam Narrative Exam: Physical Exam: Constitutional: Alert, cooperative. No acute distress Head, Ears, Nose: Normocephalic, atraumatic. External ears, nose normal Eyes: Conjunctivae/corneas clear. No icterus. No ptosis. Neck: Supple, no meningeal signs Cardiovascular: S1, S2 normal. Respiratory: Good air entry, clear to auscultation bilaterally GI:soft, non tender bowel sounds normal. No peritoneal signs Musculoskeletal: No pedal edema, no cyanosis. Skin: No rash or abscess Hem/Lymphatic: No palpable cervical or supraclavicular nodes. No lymphangitis Psych: Mood ok. Affect normal Neurological: Awake, alert, oriented. No gross abnormality - Constitutional Vitals: Vital Signs Temp Pulse Resp BP Pulse Ox 98.6 F 77 20 154/74 99 07/26/20 04:05 07/26/20 04:05 07/26/20 04:05 07/26/20 05:35 07/26/20 09:25 Temperature -Last 24 Hours Temperature 98.6 F Temperature 99.6 F Temperature 98.9 F - Labs CBC & Chem 7: 07/26/20 09:19 07/26/20 09:19 Labs: Abnormal lab results 07/26/20 07/26/20 07/26/20 Range/Units 09:19 09:19 09:19 RBC 3.21 L (3.65-5.03) M/mm3 Hgb 11.4 L (11.8-15.2) gm/dl Hct 33.6 L (35.5-45.6) % MCV 105 H (84-94) fl MCH 35 H (28-32) pg RDW 16.2 H (13.2-15.2) % Plt Count 122 L (140-440) K/mm3 [place] % (Auto) 15.3 H (0.0-7.3) % Lymph # (Auto) 1.0 L (1.2-5.4) K/mm3 [place] # (Auto) 0.9 H (0.0-0.8) K/mm3 Chloride 96.5 L (98-107) mmol/L BUN 39 H (9-20) mg/dL Creatinine 10.1 H (0.8-1.3) mg/dL Troponin T 0.038 H D (0.00-0.029) ng/mL
[2020-07-26] MEDS: hydrALAZINE 100 MG TAB PO SCH (16:31)
[2020-07-26] MEDS: FAMOTIDINE 10 MG TAB PO SCH (16:34)
[2020-08-02 05:56] LABS: Aldo/Plasma Renin Act Ratio 7.1 Ratio (0.9-28.9)
== END 2020-07-26 17:49 | disposition home health service (06) | DRG 871 ==
LOC: ED 13:59 → 3A 16:52
PROVIDERS: ADMIT Internal Medicine; ATTEND Internal Medicine
PROC: 5A1D70Z Performance of Urinary Filtration, Intermittent, Less than 6 Hours Per Day (ICD-10-PCS; principal; 2020-07-25)
DX: A41.50 Gram-negative sepsis, unspecified (principal); N18.6 End stage renal disease; J18.9 Pneumonia, unspecified organism; J96.01 Acute respiratory failure with hypoxia; I21.A1 Myocardial infarction type 2; E87.1 Hypo-osmolality and hyponatremia; I12.0 Hypertensive chronic kidney disease with stage 5 chronic kidney disease or end stage renal disease; Z20.822 Contact with and (suspected) exposure to COVID-19; K21.9 Gastro-esophageal reflux disease without esophagitis; F17.200 Nicotine dependence, unspecified, uncomplicated; Z60.2 Problems related to living alone; D72.819 Decreased white blood cell count, unspecified; D69.6 Thrombocytopenia, unspecified; G47.33 Obstructive sleep apnea (adult) (pediatric); D63.8 Anemia in other chronic diseases classified elsewhere; Z99.2 Dependence on renal dialysis; Z82.49 Family history of ischemic heart disease and other diseases of the circulatory system; Z83.3 Family history of diabetes mellitus; Z79.899 Other long term (current) drug therapy
CPT/HCPCS: 36415; 71046; 74176; 76705; 80048; 80053; 80061; 80074; 82088; 82140; 82550; 82728; 82947; 83615; 83735; 84145; 84484; 85025; 85379; 86140; 87040; 87076; 87086; 87186; 93005; 93306; 93975; 96361; 96365; 96366; 96367; 96375; 96376; G0378; J0360; J0456; J0692; J0696; J1170; J2405; J7030; U0003

== ENCOUNTER 2020-08-14 06:50 | Observation (INO) | payer MEDICARE ==
--- NOTE | 2020-08-14 07:16 | Emergency Department Report ---
Blank Doc - Documentation Documentation: 50-year-old male that presents with chest tightness and shortness of breath. 1- This initial assessment/diagnostic orders/clinical plan/ treatment(s) is/are subject to change based on pt's health status, clinical progression and re- assessment by fellow clinical providers in the ED. Further treatment and workup at subsequent clinical provers discretion. Patient/guardians urged not to elope from ED as their condition may be serious if not clinically assessed and managed. 2-cardiac work-up
[2020-08-14 07:17] LABS: Basophils # (Auto) 0.1 K/mm3 (0.0-0.1); Basophils % (Auto) 1.7 % (0.0-1.8); Eosinophils # (Auto) 0.2 K/mm3 (0.0-0.4); Hematocrit 29.4 % (35.5-45.6); Hemoglobin 10.3 gm/dl (11.8-15.2); Lymphocytes # (Auto) 1.1 K/mm3 (1.2-5.4); Lymphocytes % (Auto) 14.5 % (13.4-35.0); Mean Corpuscular HGB Conc 35 % (32-34); Mean Corpuscular Volume 102 fl (84-94); Monocytes # (Auto) 0.5 K/mm3 (0.0-0.8); Monocytes % (Auto) 6.6 % (0.0-7.3); Platelet Count 180 K/mm3 (140-440); Red Blood Count 2.89 M/mm3 (3.65-5.03); Red Cell Distribution Width 15.4 % (13.2-15.2)
[2020-08-14 07:39] LABS: Albumin 3.8 g/dL (3.9-5); Calcium 9.8 mg/dL (8.4-10.2)
--- NOTE | 2020-08-14 07:44 | XRay Report ---
CHEST 2 VIEWS INDICATION: Dyspnea. COMPARISON: 07/22/2020 FINDINGS: SUPPORT DEVICES: None. HEART: Within normal limits. LUNGS/PLEURA: Diffuse interstitial prominence and central vascular congestion slightly asymmetric to the right lung base. No underlying pleural effusion. No pneumothorax. ADDITIONAL FINDINGS: None. IMPRESSION: 1. Findings most suggestive of interstitial edema although there is slight asymmetry to the right tye g base which may reflect superimposed infectious/inflammatory process. No pleural effusion. Signer Name: Loco Valentin MD Signed: 08/14/2020 7:39 AM Workstation Name: [id number]
[2020-08-14 07:55] LABS: Chol/HDL Ratio 1.89 %
[2020-08-14 08:31] LABS: INR 1.14 (0.87-1.13)
[2020-08-14 08:32] LABS: Partial Thromboplastin Time 42.2 Sec. (24.2-36.6)
--- NOTE | 2020-08-14 08:49 | Emergency Department Report ---
HPI - General Chief Complaint: Dyspnea/Respdistress Time Seen by Provider: 08/14/20 07:14 - HPI HPI: Room 4 The patient is a 50-year-old male present with a chief complaint of shortness of breath. Patient states for the past 2 nights he has had shortness of breath at rest mostly while lying flat. Patient states she has had a cough has been nonproductive. Patient denies chest pain/pressure/tightness. Patient denies history of fever. Patient states he had an episode of nausea vomiting this morning. ED Past Medical Hx - Past Medical History Hx Hypertension: Yes Hx GERD: Yes Hx Renal Disease: Yes (ARF-HD 2017 T,Thur,Sat) Additional medical history: sleep apnea, diverticulitis - Surgical History Additional Surgical History: fistula right upper arm - Family History Family history: no significant - Social History Smoking Status: Former Smoker (None x1 week) Substance Use Type: None (Denies illicit drug use) - Medications Home Medications: Home Medications Medication Instructions Recorded Confirmed Last Taken Type amLODIPine 10 mg PO DAILY 01/22/18 07/24/20 Unknown History Calcium Acetate [Phoslo] 1,334 mg PO TIDWM #60 capsule 01/28/18 07/24/20 Unknown Rx Nicotine [Habitrol] 21 mg TD DAILY #30 patch 01/28/18 07/24/20 Unknown Rx Albuterol Mdi (or & Nicu Only) 2 puff IH QID PRN #1 each 03/11/19 07/24/20 Unknown Rx [ProAir HFA Inhaler] Benzonatate [Tessalon Perles] 100 mg PO Q8HR PRN #30 capsule 03/11/19 07/24/20 Unknown Rx Capsaicin 0.075% [Zostrix Hp 1 applicatio TP TID PRN #1 tube 10/30/19 07/24/20 Unknown Rx 0.075%] Aspirin EC [Halfprin EC] 81 mg PO QDAY #30 tablet. 07/26/20 Unknown Rx Ciprofloxacin HCl [Ciprofloxacin 500 mg PO DAILY 7 Days #10 tablet 07/26/20 U nknown Rx TAB] Furosemide [Lasix TAB] 80 mg PO QDAY #30 tablet 07/26/20 Unknown Rx Losartan [Cozaar] 100 mg PO QDAY #30 tablet 07/26/20 Unknown Rx carvediloL [Coreg] 25 mg PO BID@0800,1700 #60 tablet 07/26/20 Unknown Rx hydrALAZINE [Apresoline TAB] 100 mg PO Q8HR #90 tab 07/26/20 Unknown Rx ED Review of Systems ROS: Stated complaint: SOB Other details as noted in HPI Constitutional: denies: fever Eyes: denies: eye pain ENT: denies: throat pain Respiratory: cough, shortness of breath Cardiovascular: denies: chest pain Endocrine: no symptoms reported Gastrointestinal: nausea, vomiting Genitourinary: denies: testicular pain Musculoskeletal: denies: back pain Neurological: denies: headache Physical Exam - Physical Exam Vital Signs: Vital Signs 08/14/20 07:00 Temperature 98.4 F Pulse Rate 92 H Respiratory 18 Rate Blood Pressure 214/96 O2 Sat by Pulse 94 Oximetry Physical Exam: GENERAL: The patient is well-developed well-nourished male lying on stretcher not appearing to be in acute distress. [] HEENT: Normocephalic. Atraumatic. Extraocular motions are intact. Patient has moist mucous membranes. NECK: Supple. Trachea midline CHEST/LUNGS: Faint crackles bilateral bases. There is no respiratory distress noted. HEART/CARDIOVASCULAR: Regular. There is no tachycardia. There is no gallop rub or murmur. ABDOMEN: Abdomen is soft, nontender. Patient has normal bowel sounds. There is no abdominal distention. SKIN: There is no rash. There is no edema. There is no diaphoresis. NEURO: The patient is awake, alert, and oriented. The patient is cooperative. The patient has no focal neurologic deficits. The patient has normal speech MUSCULOSKELETAL: There is no evidence of acute injury. ED Course Vital Signs 08/14/20 07:00 Temperature 98.4 F Pulse Rate 92 H Respiratory 18 Rate Blood Pressure 214/96 O2 Sat by Pulse 94 Oximetry - Consultations Consultation #1: 08/14/20 09:01 Nephrology paged ED Medical Decision Making - Lab Data Result diagrams: 08/14/20 07:06 08/14/20 07:06 - EKG Data -: EKG Interpreted by Me EKG shows normal: sinus rhythm Rate: normal - EKG Data Interpretation: unchanged when compared t (07/22/2020) - Radiology Data Radiology results: report reviewed (Chest x-ray), image reviewed (Chest x-ray) interpreted by me: Chest x-ray-right lower lobe opacity. No pneumothorax. No foreign body seen [facility] [address] [place] [address] XRay Report Signed Patient: KELSY BALBUENA MR#: [id number] : 1970 Acct:[id number] Age/Sex: 50 / M ADM Date: 08/14/20 Loc: ED Attending Dr: Ordering Physician: HEIKE VERGARA MD Date of Service: 08/14/20 Procedure(s): XR chest routine 2V Accession Number(s): [id number] cc: ED MD JAI Fluoro Time In Minutes: CHEST 2 VIEWS INDICATION: Dyspnea. COMPARISON: 07/22/2020 FINDINGS: SUPPORT DEVICES: None. HEART: Within normal limits. LUNGS/PLEURA: Diffuse interstitial prominence and central vascular congestion slightly asymmetric to the right lung base. No underlying pleural effusion. No pneumothorax. ADDITIONAL FINDINGS: None. IMPRESSION: 1. Findings most suggestive of interstitial edema although there is slight asymmetry to the right lung base which may reflect superimposed infectious/inflammatory process. No pleural effusion. Signer Name: Loco Valentin MD Signed: 08/14/2020 7:39 AM Workstation Name: [id number] Transcribed By: JW Dictated By: Loco Valentin MD Electronically Authenticated By: Loco Valentin MD Signed Date/Time: 08/14/20738 DD/ 7 TD/TT: Print Cancel - Differential Diagnosis Pulmonary edema, pneumonia, CHF Critical care attestation.: If time is entered above; I have spent that time in minutes in the direct care of this critically ill patient, excluding procedure time. ED Disposition Clinical Impression: Shortness of breath, Hypoxia, Pneumonia, Interstitial edema Disposition: 09 OP ADMIT IP TO THIS HOSP Is pt being admited?: Yes Does the pt Need Aspirin: No Condition: Fair Instructions: Bacterial Pneumonia (ED) Time of Disposition: 09:21 (Hospitalist paged (Dr Lewis))
[2020-08-14] MEDS ORDERED: cloNIDine 0.2 MG TAB PO ONE (09:01)
[2020-08-14] MEDS ORDERED: cefTRIAXone/NS 1 GM/50 ML 1 GM/50 ML BAG IV ONE (09:19)
[2020-08-14] MEDS ORDERED: HEPARIN 10,000 UNITS/10 ML VIAL IV PRN (09:22)
[2020-08-14] MEDS ORDERED: SODIUM CHLORIDE 0.9% 100 ML IV PRN (09:22)
[2020-08-14 11:22] LABS: C-Reactive Protein 1.7 mg/dL (0.00-1.30)
[2020-08-14] MEDS ORDERED: ALBUTEROL 2.5 MG/3 ML NEBU IH PRN (12:14)
[2020-08-14] MEDS ORDERED: oxyCODONE /ACETAMINOPHEN 5-325MG TAB PO PRN (12:14)
[2020-08-14] MEDS ORDERED: ACETAMINOPHEN 325 MG TAB PO PRN (12:14)
[2020-08-14] MEDS ORDERED: ONDANSETRON 4 MG/2 ML INJ IV PRN (12:14)
[2020-08-14] MEDS ORDERED: NALOXONE 0.4 MG/1 ML INJ IV PRN (12:14)
[2020-08-14] MEDS ORDERED: BENZONATATE 100 MG CAP PO PRN (12:17)
--- NOTE | 2020-08-14 12:48 | History and Physical Report ---
History of Present Illness Date of examination: 08/14/20 Date of admission: 08/14/20 09:52 Chief complaint: Acute dyspnea History of present illness: 50-year-old -[place] male with past medical history of end-stage renal disease, hypertension who presents with shortness of breath. Patient states that he had dialysis 2 days ago without any complications. However he started to have acute dyspnea 2 days ago. Patient denies any fevers or chills, did have mild vomiting today with some nausea. Due to the shortness of breath, patient came to [facility] for evaluation. Vital signs 193/90, pulse rate 81, patient afebrile. Hemoglobin 10.3, D-dimer 456, creatinine 10.7, sodium 142, potassium 3.9, ferritin 1215, troponin 0.05, chest x-ray showing pulmonary congestion versus inflammatory/infectious process in the right lower lobe. Covid swab pending, patient received 2 doses of the Covid vaccine. Patient was placed on IV antibiotics, blood cultures obtained, nephrology consulted and patient will go to dialysis today. Past History Past Medical History: other (End-stage renal disease, hypertension) Past Surgical History: Other (AV fistula in right arm) Family history: other (Diabetes mellitus type 2, hypertension) Medications and Allergies Allergies Allergy/AdvReac Type Severity Reaction Status Date / Time No Known Allergies Allergy Verified 07/25/20 13:03 Home Medications Medication Instructions Recorded Confirmed Last Taken Type amLODIPine 10 mg PO DAILY 01/22/18 07/24/20 Unknown History Calcium Acetate [Phoslo] 1,334 mg PO TIDWM #60 capsule 01/28/18 07/24/20 Unknown Rx Nicotine [Habitrol] 21 mg TD DAILY #30 patch 01/28/18 07/24/20 Unknown Rx Albuterol Mdi (or & Nicu Only) 2 puff IH QID PRN #1 each 03/11/19 07/24/20 Unknown Rx [ProAir HFA Inhaler] Benzonatate [Tessalon Perles] 100 mg PO Q8HR PRN #30 capsule 03/11/19 07/24/20 Unknown Rx Capsaicin 0.075% [Zostrix Hp 1 applicatio TP TID PRN #1 tube 10/30/19 07/24/20 Unknown Rx 0.075%] Aspirin EC [Halfprin EC] 81 mg PO QDAY #30 tablet. 07/26/20 Unknown Rx Ciprofloxacin HCl [Ciprofloxacin 500 mg PO DAILY 7 Days #10 tablet 07/26/20 Unknown Rx TAB] Furosemide [Lasix TAB] 80 mg PO QDAY #30 tablet 07/26/20 Unknown Rx Losartan [Cozaar] 100 mg PO QDAY #30 tablet 07/26/20 Unknown Rx carvediloL [Coreg] 25 mg PO BID@0800,1700 #60 tablet 07/26/20 Unknown Rx hydrALAZINE [Apresoline TAB] 100 mg PO Q8HR #90 tab 07/26/20 Unknown Rx Active Meds: Active Medications Acetaminophen (Acetaminophen 325 Mg Tab) 650 mg PO Q4H PRN PRN Reason: Pain MILD(1-3)/Fever >100.5/HUBER Albuterol (Albuterol 2.5 Mg/3 Ml Nebu) 2.5 mg IH Q4HRT PRN PRN Reason: Shortness Of Breath Amlodipine Besylate (Amlodipine 10 Mg Tab) 10 mg PO DAILY JIMMY Aspirin (Aspirin Ec 81 Mg Tab) 81 mg PO QDAY JIMMY Benzonatate (Benzonatate 100 Mg Cap) 100 mg PO Q8HR PRN PRN Reason: Cough Calcium Acetate (Calcium Acetate 667 Mg Cap) 1,334 mg PO TIDWM JIMMY Carvedilol (Carvedilol 25 Mg Tab) 25 mg PO BID@0800,1700 JIMMY Furosemide (Furosemide 40 Mg Tab) 80 mg PO QDAY JIMMY Heparin Sodium (Porcine) (Heparin 10,000 Units/10 Ml Vial) 3,000 unit IV HA PRN PRN Reason: hemodialysis Heparin Sodium (Porcine) (Heparin 5,000 Unit/1 Ml Vial) 5,000 unit SUB-Q Q12HR JIMMY Hydralazine HCl (Hydralazine 100 Mg Tab) 100 mg PO Q8HR JIMMY Sodium Chloride (Nacl 0.9%) 100 mls @ 999 mls/hr IV HA PRN PRN Reason: Hypotension Losartan Potassium (Losartan 50 Mg Tab) 100 mg PO QDAY JIMMY Naloxone HCl (Naloxone 0.4 Mg/1 Ml Inj) 0.1 mg IV Q2MIN PRN PRN Reason: Res Rate </= 8 or 02 SAT < 92% Nicotine (Nicotine 21 Mg/24 Hr Patch) 21 mg TD DAILY JIMMY Ondansetron HCl (Ondansetron 4 Mg/2 Ml Inj) 4 mg IV Q8H PRN PRN Reason: Nausea And Vomiting Oxycodone/Acetaminophen (Oxycodone /Acetaminophen 5-325mg Tab) 1 tab PO Q6H PRN PRN Reason: Pain, Moderate (4-6) Sodium Chloride (Sodium Chloride 0.9% 10 Ml Flush Syringe) 10 ml IV BID JIMMY Sodium Chloride (Sodium Chloride 0.9% 10 Ml Flush Syringe) 10 ml IV PRN PRN PRN Reason: LINE FLUSH Review of Systems All systems: negative Respiratory: cough, shortness of breath, dyspnea on exertion, wheezing Exam - Physical Exam Narrative exam: General appearance: no acute distress, well-nourished EENT: PERRL, EOM intact, hearing intact, clear oral mucosa Neck: Present: supple, normal ROM Respiratory: Right lower lobe rales heard, all other lung black clear, no wheezing. Cardiovascular: Regular rate/rhythm, Normal S1 & S2. No gallop, rub Extremities: AV fistula in right arm, no ischemia, No edema, normal temperature, normal color, Full ROM Abdominal: soft, no tenderness, non-distended, normal bowel sounds Integumentary: Present: clear, warm, dry no wounds, no erythema noted Psychiatric: appropriate mood/affect, intact judgment & insight Neurologic: CNII-XII intact, moves all extremities, no sensory or motor abnormalities - Constitutional Vitals: Temp Pulse Resp BP Pulse Ox 98.2 F 79 20 197/95 96 08/14/20 11:47 08/14/20 12:00 08/14/20 11:47 08/14/20 12:00 08/14/20 10:15 HEART Score - HEART Score Troponin: Troponin T 0.057 ng/mL (0.00-0.029) H 08/14/20 10:02 Results - Labs CBC & Chem 7: 08/14/20 07:06 08/14/20 10:02 Labs: Laboratory Last Values WBC 7.9 K/mm3 (4.5-11.0) 08/14/20 07:06 RBC 2.89 M/mm3 (3.65-5.03) L 08/14/20 07:06 Hgb 10.3 gm/dl (11.8-15.2) L 08/14/20 07:06 Hct 29.4 % (35.5-45.6) L 08/14/20 07:06 MCV 102 fl (84-94) H 08/14/20 07:06 MCH 36 pg (28-32) H 08/14/20 07:06 MCHC 35 % (32-34) H 08/14/20 07:06 RDW 15.4 % (13.2-15.2) H 08/14/20 07:06 Plt Count 180 K/mm3 (140-440) 08/14/20 07:06 Lymph % (Auto) 14.5 % (13.4-35.0) 08/14/20 07:06 [place] % (Auto) 6.6 % (0.0-7.3) 08/14/20 07:06 Eos % (Auto) 2.0 % (0.0-4.3) 08/14/20 07:06 Baso % (Auto) 1.7 % (0.0-1.8) 08/14/20 07:06 Lymph # (Auto) 1.1 K/mm3 (1.2-5.4) L 08/14/20 07:06 [place] # (Auto) 0.5 K/mm3 (0.0-0.8) 08/14/20 07:06 Eos # (Auto) 0.2 K/mm3 (0.0-0.4) 08/14/20 07:06 Baso # (Auto) 0.1 K/mm3 (0.0-0.1) 08/14/20 07:06 Seg Neutrophils % 75.2 % (40.0-70.0) H 08/14/20 07:06 Seg Neutrophils # 5.9 K/mm3 (1.8-7.7) 08/14/20 07:06 PT 14.4 Sec. (12.2-14.9) 08/14/20 07:28 INR 1.14 (0.87-1.13) H 08/14/20 07:28 APTT 42.2 Sec. (24.2-36.6) H 08/14/20 07:28 D-Dimer 456.49 ng/mlDDU (0-234) H 08/14/20 10:02 Sodium 142 mmol/L (137-145) 08/14/20 07:06 Potassium 3.9 mmol/L (3.6-5.0) 08/14/20 07:06 Chloride 98.8 mmol/L (98-107) 08/14/20 07:06 Carbon Dioxide 31 mmol/L (22-30) H 08/14/20 07:06 Anion Gap 16 mmol/L 08/14/20 07:06 BUN 42 mg/dL (9-20) H 08/14/20 07:06 Creatinine 10.7 mg/dL (0.8-1.3) H 08/14/20 07:06 Estimated GFR 6 ml/min 08/14/20 07:06 BUN/Creatinine Ratio 4 % 08/14/20 07:06 Glucose 92 mg/dL (75-100) 08/14/20 10:02 Calcium 9.8 mg/dL (8.4-10.2) 08/14/20 07:06 Ferritin 1215.0 ng/mL (30.0-300.0) H 08/14/20 10:02 Total Bilirubin 0.60 mg/dL (0.1-1.2) 08/14/20 07:06 AST 23 units/L (5-40) 08/14/20 07:06 ALT 23 units/L (7-56) 08/14/20 07:06 Alkaline Phosphatase 59 units/L (35-129) 08/14/20 07:06 Lactate Dehydrogenase 150 units/L (91-180) 08/14/20 10:02 Troponin T 0.057 ng/mL (0.00-0.029) H 08/14/20 10:02 C-Reactive Protein 1.70 mg/dL (0.00-1.30) H 08/14/20 10:02 Total Protein 7.8 g/dL (6.3-8.2) 08/14/20 07:06 Albumin 3.8 g/dL (3.9-5) L 08/14/20 07:06 Albumin/Globulin Ratio 1.0 % 08/14/20 07:06 Triglycerides 42 mg/dL (2-149) 08/14/20 07:06 Cholesterol 121 mg/dL (50-199) 08/14/20 07:06 LDL Cholesterol Direct 54 mg/dL (50-130) 08/14/20 07:06 HDL Cholesterol 64 mg/dL (40-59) H 08/14/20 07:06 Cholesterol/HDL Ratio 1.89 % 08/14/20 07:06 Procalcitonin 0.34 ng/mL (<0.15) 08/14/20 10:02 Microbiology: Microbiology 08/14/20 10:02 Peripheral/Venous Blood Culture - Preliminary Culture in Progress 08/14/20 10:02 Peripheral/Venous Blood Culture - Preliminary Culture in Progress Assessment and Plan Assessment and plan: 50-year-old -[place] male with a past medical history of end-stage renal disease and hypertension who presents with acute dyspnea for the last 2 days. Acute hypoxic respiratory failure Oxygen supplementation Covid swab pending Patient had dialysis today based on chest x-ray with possible pulmonary interstitial congestion PUI Covid Patient received 2 vaccinations Covid swab pending Isolation precautions Sepsis secondary to community acquired pneumonia Azithromycin and ceftriaxone Blood cultures are pending End-stage renal disease Nephrology consulted Dialysis as scheduled Hypertensive urgency Hydralazine IV as needed Restart all hypertensive medications Nicotine dependence Nicotine patch Marijuana abuse Stressed abstinence CODE STATUS: Full DVT prophylaxis: Heparin Disposition: Anticipate less than 2 midnight stay for treatment of community acquired pneumonia and pulmonary interstitial edema. Advance Directives: Yes VTE prophylaxis?: Chemical Plan of care discussed with patient/family: Yes
[2020-08-14] MEDS ORDERED: hydrALAZINE 20 MG/1 ML INJ IV PRN (12:52)
[2020-08-14] MEDS ORDERED: LIDOCAINE-MPF (1%) 10 MG/1 ML VIAL 5 ML INFILTRATI ONE (12:59)
[2020-08-14] MEDS ORDERED: AZITHROMYCIN/NS 500 MG/250 ML 500 MG/250 ML BAG IV SCH (13:00)
[2020-08-14] MEDS ORDERED: NICOTINE 21 MG/24 HR PATCH TD SCH (13:00)
[2020-08-14] MEDS: hydrALAZINE 100 MG TAB PO SCH ×2 (14:26→21:57)
--- NOTE | 2020-08-14 15:19 | Consultation ---
History of Present Illness - Reason for Consult Consult date: 08/14/20 end stage renal disease - History of Present Illness The patient is a 50 YO male known to our service with history significant for HTN, GERD, ESRD on HD(TTS), Nicotine Dependence and BARBARA who presented to [facility] ED 08/14 with c/o sob for the past 1 day. Patient has been compliant with his hemodialysis treatments, last dialyzed 2 days ago. He developed sob yesterday and associated with nausea, dry cough, orthopnea and PND. Patient denies any fevers, chills, cp, abd pain, leg swelling, dizziness or weakness. Initial BP w as 214/96. Patient received 2 doses of the Covid vaccine. Labs: Hemoglobin 10.3, D-dimer 456, creatinine 10.7, sodium 142, potassium 3.9, ferritin 1215, troponin 0.05, chest x-ray showed pulmonary congestion versus inflammatory/infectious process in the right lower lobe. Covid swab pending. Patient was placed on IV antibiotics, blood cultures obtained. Nephrology was consulted for ESRD management. Past History Past Medical History: other (End-stage renal disease, hypertension) Past Surgical History: Other (AV fistula in right arm) Family history: other (Diabetes mellitus type 2, hypertension) Medications and Allergies Allergies Allergy/AdvReac Type Severity Reaction Status Date / Time No Known Allergies Allergy Verified 07/25/20 13:03 Home Medications Medication Instructions Recorded Confirmed Last Taken Type amLODIPine 10 mg PO DAILY 01/22/18 07/24/20 Unknown History Calcium Acetate [Phoslo] 1,334 mg PO TIDWM #60 capsule 01/28/18 07/24/20 Unknown Rx Nicotine [Habitrol] 21 mg TD DAILY #30 patch 01/28/18 07/24/20 Unknown Rx Albuterol Mdi (or & Nicu Only) 2 puff IH QID PRN #1 each 03/11/19 07/24/20 Unknown Rx [ProAir HFA Inhaler] Benzonatate [Tessalon Perles] 100 mg PO Q8HR PRN #30 capsule 03/11/19 07/24/20 Unknown Rx Capsaicin 0.075% [Zostrix Hp 1 applicatio TP TID PRN #1 tube 10/30/19 07/24/20 Unknown Rx 0.075%] Aspirin EC [Halfprin EC] 81 mg PO QDAY #30 tablet. 07/26/20 Unknown Rx Ciprofloxacin HCl [Ciprofloxacin 500 mg PO DAILY 7 Days #10 tablet 07/26/20 Unknown Rx TAB] Furosemide [Lasix TAB] 80 mg PO QDAY #30 tablet 07/26/20 Unknown Rx Losartan [Cozaar] 100 mg PO QDAY #30 tablet 07/26/20 Unknown Rx carvediloL [Coreg] 25 mg PO BID@0800,1700 #60 tablet 07/26/20 Unknown Rx hydrALAZINE [Apresoline TAB] 100 mg PO Q8HR #90 tab 07/26/20 Unknown Rx Active Meds: Active Medications Acetaminophen (Acetaminophen 325 Mg Tab) 650 mg PO Q4H PRN PRN Reason: Pain MILD(1-3)/Fever >100.5/HUBER Albuterol (Albuterol 2.5 Mg/3 Ml Nebu) 2.5 mg IH Q4HRT PRN PRN Reason: Shortness Of Breath Amlodipine Besylate (Amlodipine 10 Mg Tab) 10 mg PO DAILY [facility] Aspirin (Aspirin Ec 81 Mg Tab) 81 mg PO QDAY [facility] Benzonatate (Benzonatate 100 Mg Cap) 100 mg PO Q8HR PRN PRN Reason: Cough Calcium Acetate (Calcium Acetate 667 Mg Cap) 1,334 mg PO TIDWM [facility] Carvedilol (Carvedilol 25 Mg Tab) 25 mg PO BID@0800,1700 [facility] Ceftriaxone Sodium (Ceftriaxone 1 Gm Inj) 1 gm IM Q24H JIMMY; Protocol Furosemide (Furosemide 40 Mg Tab) 80 mg PO QDAY [facility] Heparin Sodium (Porcine) (Heparin 10,000 Units/10 Ml Vial) 3,000 unit IV HA PRN PRN Reason: hemodialysis Heparin Sodium (Porcine) (Heparin 5,000 Unit/1 Ml Vial) 5,000 unit SUB-Q Q12HR [facility] Hydralazine HCl (Hydralazine 100 Mg Tab) 100 mg PO Q8HR [facility] Last Admin: 08/14/20 14:26 Dose: 100 mg Documented by: Hydralazine HCl (Hydralazine 20 Mg/1 Ml Inj) 10 mg IV Q4HR PRN PRN Reason: Blood Pressure Sodium Chloride (Nacl 0.9%) 100 mls @ 999 mls/hr IV HA PRN PRN Reason: Hypotension Azithromycin (Zithromax/Ns) 500 mg in 250 mls @ 250 mls/hr IV Q24H [facility] Last Admin: 08/14/20 14:26 Dose: 250 mls/hr Documented by: Losartan Potassium (Losartan 50 Mg Tab) 100 mg PO QDAY [facility] Naloxone HCl (Naloxone 0.4 Mg/1 Ml Inj) 0.1 mg IV Q2MIN PRN PRN Reason: Res Rate </= 8 or 02 SAT < 92% Nicotine (Nicotine 21 Mg/24 Hr Patch) 21 mg TD DAILY [facility] Ondansetron HCl (Ondansetron 4 Mg/2 Ml Inj) 4 mg IV Q8H PRN PRN Reason: Nausea And Vomiting Oxycodone/Acetaminophen (Oxycodone /Acetaminophen 5-325mg Tab) 1 tab PO Q6H PRN PRN Reason: Pain, Moderate (4-6) Sodium Chloride (Sodium Chloride 0.9% 10 Ml Flush Syringe) 10 ml IV BID [facility] Sodium Chloride (Sodium Chloride 0.9% 10 Ml Flush Syringe) 10 ml IV PRN PRN PRN Reason: LINE FLUSH Review of Systems Constitutional: no weight loss, no weight gain, no fever, no chills, no anorexia, no fatigue, no weakness Cardiovascular: orthopnea, shortness of breath, high blood pressure, no chest pain, no edema, no syncope, no lightheadedness, no leg edema Respiratory: cough, shortness of breath, dyspnea on exertion, no excessive sputum, no hemoptysis, no home oxygen Gastrointestinal: nausea, no abdominal pain, no vomiting, no diarrhea, no melena Genitourinary Male: no dysuria, no hematuria Neurological: no seizures, no syncope, no convulsions, no aphasia, no change in speech, no change in mentation, no confusion Exam - Vital Signs Vital signs: Vital Signs Temp Pulse Resp BP Pulse Ox 98.4 F 92 H 18 214/96 94 08/14/20 07:00 08/14/20 07:00 08/14/20 07:00 08/14/20 07:00 08/14/20 07:00 Results - Lab Results 08/14/20 07:06 08/14/20 10:02 Most recent lab results Calcium 9.8 mg/dL (8.4-10.2) 08/14/20 07:06 Assessment and Plan 1. ESRD: Patient is on mainteneance hemodialysis three times a week, TTS schedule. Last outpatient hemodialysis was on 08/12. Meds dosage based on GFR. Hemodialysis: 08/14 (UF only). 2. FEN: Volume overload, s/p UF today with improvement in symptoms. Monitor lytes and volume status. 3. R LL PNA: Abx for CAP. Covid test negative. 4. Acute respiratory insufficiency, POA: 2/2 PNA and volume overload. Supplemental oxygen, pulse oximetry, nebulizer therapy, noninvasive positive pressure ventilation as clinically indicated. 5. Hypertension: Resume home meds. Adjust meds as appropriate. Aldosterine: Renin level and Renal artery duplex ordered. 6. Anemia: 2/2 ESRD. Epogen as needed. 7. Marijuna use: Counseled. Subjective: Patient was seen and examined at the bedside. General Appearance: General appearance: well-developed, appears stated age, not in distress HEENT: ATNC, pupils equal Neck: neck supple, trachea midline Respiratory: ctab Heart: regular, S1S2, no murmur Abdomen: soft, normoactive bowel sounds, not tender Integumentary: no rash, warm and dry Neurologic: AO, non-focal Ext: no edema Hemodialysis access: R arm AVF / AVG
[2020-08-14] MEDS: CALCIUM ACETATE 667 MG CAP PO SCH (16:36)
[2020-08-14] MEDS: carvediloL 25 MG TAB PO SCH (16:38)
[2020-08-14] MEDS ORDERED: HEPARIN 5,000 UNIT/1 ML VIAL SUB-Q SCH (22:00)
[2020-08-15] MEDS: hydrALAZINE 100 MG TAB PO SCH (05:40)
[2020-08-15 06:28] LABS: Hematocrit 25.9 % (35.5-45.6); Hemoglobin 9.1 gm/dl (11.8-15.2); Mean Corpuscular HGB Conc 35 % (32-34); Mean Corpuscular Volume 103 fl (84-94); Platelet Count 147 K/mm3 (140-440); Red Blood Count 2.53 M/mm3 (3.65-5.03); Red Cell Distribution Width 15.6 % (13.2-15.2)
[2020-08-15 06:41] LABS: Calcium 9.3 mg/dL (8.4-10.2)
[2020-08-15] MEDS: carvediloL 25 MG TAB PO SCH (08:26)
[2020-08-15] MEDS: CALCIUM ACETATE 667 MG CAP PO SCH (08:26)
[2020-08-15] MEDS ORDERED: SODIUM CHLORIDE 0.9% 100 ML IV PRN (09:29)
[2020-08-15] MEDS ORDERED: LOSARTAN 50 MG TAB PO SCH (10:00)
[2020-08-15] MEDS ORDERED: ASPIRIN EC 81 MG TAB PO SCH (10:00)
[2020-08-15] MEDS ORDERED: amLODIPine 10 MG TAB PO SCH (10:00)
[2020-08-15] MEDS ORDERED: cefTRIAXone/NS 2 GM/100 ML 2 GM/100 ML BAG IV SCH (10:00)
[2020-08-15] MEDS ORDERED: FUROSEMIDE 40 MG TAB PO SCH (10:00)
--- NOTE | 2020-08-15 10:18 | Progress Note ---
Assessment and Plan 1. ESRD: Patient is on maintenance hemodialysis three times a week, TTS schedule. Last outpatient hemodialysis was on 08/12. Meds dosage based on GFR. Hemodialysis: 08/14 (UF only). Hemodialysis TTS schedule. 2. FEN: Volume overload, s/p UF (08/14) with improvement in symptoms. Monitor lytes and volume status. 3. R LL PNA: Abx for CAP. Covid test negative. 4. Acute respiratory insufficiency, POA: 2/2 PNA and volume overload. Supplemental oxygen, pulse oximetry, nebulizer therapy, noninvasive positive pressure ventilation as clinically indicated. 5. Hypertension: Amlodipine chnaged to Nifedipine. Adjust meds as appropriate. Aldosterone:Renin ratio is normal. Renal artery duplex was inconclusive but no definitive e/o ARY. 6. Anemia: 2/2 ESRD. Epogen as needed. 7. Marijuna use: Counseled. Subjective: Patient was seen and examined at the bedside. General Appearance: General appearance: well-developed, appears stated age, not in distress HEENT: ATNC, pupils equal Neck: neck supple, trachea midline Respiratory: ctab Heart: regular, S1S2, no murmur Abdomen: soft, normoactive bowel sounds, not tender Integumentary: no rash, warm and dry Neurologic: AO, non-focal Ext: no edema Hemodialysis access: R arm AVF / AVG Subjective Date of service: 08/15/20 Objective - Vital Signs Vital signs: Vital Signs - 12hr 08/14/20 08/15/20 08/15/20 23:42 05:32 06:26 Temperature 98.0 F 97.7 F Pulse Rate 85 90 Respiratory 20 20 18 Rate Blood Pressure 174/88 199/94 193/93 O2 Sat by Pulse 96 95 Oximetry 08/15/20 08/15/20 08:25 08:26 Temperature Pulse Rate 85 85 Respiratory Rate Blood Pressure 195/90 195/90 O2 Sat by Pulse Oximetry - Lab 08/15/20 05:54 08/15/20 05:54 Most recent lab results Calcium 9.3 mg/dL (8.4-10.2) 08/15/20 05:54 Medications & Allergies - Medications Allergies/Adverse Reactions: Allergies No Known Allergies Allergy (Verified 07/25/20 13:03) Home Medications: Home Medications Medication Instructions Recorded Confirmed Last Taken Type amLODIPine 10 mg PO DAILY 01/22/18 07/24/20 Unknown History Calcium Acetate [Phoslo] 1,334 mg PO TIDWM #60 capsule 01/28/18 07/24/20 Unknown Rx Nicotine [Habitrol] 21 mg TD DAILY #30 patch 01/28/18 07/24/20 Unknown Rx Albuterol Mdi (or & Nicu Only) 2 puff IH QID PRN #1 each 03/11/19 07/24/20 Unknown Rx [ProAir HFA Inhaler] Benzonatate [Tessalon Perles] 100 mg PO Q8HR PRN #30 capsule 03/11/19 07/24/20 Unknown Rx Capsaicin 0.075% [Zostrix Hp 1 applicatio TP TID PRN #1 tube 10/30/19 07/24/20 Unknown Rx 0.075%] Aspirin EC [Halfprin EC] 81 mg PO QDAY #30 tablet. 07/26/20 Unknown Rx Ciprofloxacin HCl [Ciprofloxacin 500 mg PO DAILY 7 Days #10 tablet 07/26/20 Unknown Rx TAB] Furosemide [Lasix TAB] 80 mg PO QDAY #30 tablet 07/26/20 Unknown Rx Losartan [Cozaar] 100 mg PO QDAY #30 tablet 07/26/20 Unknown Rx carvediloL [Coreg] 25 mg PO BID@0800,1700 #60 tablet 07/26/20 Unknown Rx hydrALAZINE [Apresoline TAB] 100 mg PO Q8HR #90 tab 07/26/20 Unknown Rx Active Medications: Generic Name Dose Route Start Last Admin Trade Name Freq PRN Reason Stop Dose Admin Acetaminophen 650 mg 08/14/20 12:14 Acetaminophen 325 Mg Tab PO Q4H PRN Pain MILD(1-3)/Fever >100.5/HUBER Albuterol 2.5 mg 08/14/20 12:14 Albuterol 2.5 Mg/3 Ml Nebu IH Q4HRT PRN Shortness Of Breath Amlodipine Besylate 10 mg 08/15/20 10:00 Amlodipine 10 Mg Tab PO DAILY JIMMY Aspirin 81 mg 08/15/20 10:00 Aspirin Ec 81 Mg Tab PO QDAY JIMMY Benzonatate 100 mg 08/14/20 12:17 Benzonatate 100 Mg Cap PO Q8HR PRN Cough Calcium Acetate 1,334 mg 08/14/20 17:00 08/15/20 08:26 Calcium Acetate 667 Mg Cap PO 1,334 mg TIDWM JIMMY Administration Carvedilol 25 mg 08/14/20 17:00 08/15/20 08:26 Carvedilol 25 Mg Tab PO 25 mg BID@0800,1700 JIMMY Administration Furosemide 80 mg 08/15/20 10:00 Furosemide 40 Mg Tab PO QDAY JIMMY Heparin Sodium (Porcine) 3,000 unit 08/14/20 09:22 Heparin 10,000 Units/10 Ml Vial IV HA PRN hemodialysis Heparin Sodium (Porcine) 5,000 unit 08/14/20 22:00 08/14/20 21:57 Heparin 5,000 Unit/1 Ml Vial SUB-Q 5,000 unit Q12HR JIMMY Administration Hydralazine HCl 100 mg 08/14/20 14:00 08/15/20 05:40 Hydralazine 100 Mg Tab PO 100 mg Q8HR JIMMY Administration Hydralazine HCl 10 mg 08/14/20 12:52 08/15/20 08:25 Hydralazine 20 Mg/1 Ml Inj IV 10 mg Q4HR PRN Administration Blood Pressure Azithromycin 500 mg in 250 mls @ 250 mls/hr 08/14/20 13:00 08/14/20 14:26 Zithromax/Ns IV 08/18/20 13:59 250 mls/hr Q24H [facility] Administration Ceftriaxone Sodium 2 gm in 100 mls @ 200 mls/hr 08/15/20 10:00 Rocephin/Ns 2 Gm/100 Ml IV 08/18/20 10:59 Q24HR [facility] Sodium Chloride 100 mls @ 999 mls/hr 08/15/20 09:29 Nacl 0.9% IV AH PRN Hypotension Losartan Potassium 100 mg 08/15/20 10:00 Losartan 50 Mg Tab PO QDAY [facility] Naloxone HCl 0.1 mg 08/14/20 12:14 Naloxone 0.4 Mg/1 Ml Inj IV Q2MIN PRN Res Rate </= 8 or 02 SAT < 92% Nicotine 21 mg 08/14/20 13:00 08/14/20 15:33 Nicotine 21 Mg/24 Hr Patch TD Not Given DAILY [facility] Ondansetron HCl 4 mg 08/14/20 12:14 Ondansetron 4 Mg/2 Ml Inj IV Q8H PRN Nausea And Vomiting Oxycodone/Acetaminophen 1 tab 05/24/21 12:14 Oxycodone /Acetaminophen 5-325mg Tab PO Q6H PRN Pain, Moderate (4-6) Sodium Chloride 10 ml 08/14/20 22:00 08/14/20 21:57 Sodium Chloride 0.9% 10 Ml Flush Syringe IV 10 ml BID JIMMY Administration Sodium Chloride 10 ml 08/14/20 12:14 Sodium Chloride 0.9% 10 Ml Flush Syringe IV PRN PRN LINE FLUSH
--- NOTE | 2020-08-15 10:36 | Electrocardiograph Report ---
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
[2020-08-15] MEDS ORDERED: NIFEdipine XL 90 MG TAB PO SCH (11:00)
--- NOTE | 2020-08-15 11:05 | Discharge Summary ---
Providers - Providers Date of Admission: 08/14/20 09:52 Attending physician: TIO SHAHID MD 08/14/20 09:18 Consult to Physician [CONS] Stat Comment: Consulting Provider: FLORIAN TAVAREZ Physician Instructions: Reason For Exam: ESRD, interstitial edema Primary care physician: DARCI ROOT Hospitalization Reason for admission: Hypertensive urgency Condition: Fair Hospital course: 50-year-old -[place] male with past medical history of end-stage renal disease, hypertension who presents with shortness of breath. Patient states that he had dialysis 2 days ago without any complications. However he started to have acute dyspnea 2 days ago. Patient denies any fevers or chills, did have mild vomiting today with some nausea. Due to the shortness of breath, patient came to [facility] for evaluation. Vital signs 193/90, pulse rate 81, patient afebrile. Hemoglobin 10.3, D-dimer 456, creatinine 10.7, s odium 142, potassium 3.9, ferritin 1215, troponin 0.05, chest x-ray showing pulmonary congestion versus inflammatory/infectious process in the right lower lobe. Covid swab pending, patient received 2 doses of the Covid vaccine. Patient was placed on IV antibiotics, blood cultures obtained, nephrology consulted and patient will go to dialysis today. Blood pressure remained persistently elevated with systolic in the 190s he states that this has been ongoing since his last admission. He reports that his doctor took him off of clonidine also as it did not appear to be effective for him. On review today he has been changed to nifedipine from amlodipine with a blood pressure systolic of 168 during dialysis. He denies any chest pain nausea vomiting he denies any shortness of breath at this time he will be following up with the trimmer hand who is also okay with him being discharged and follow-up outpatient. He has no fever noted Covid testing was done and is negative. Substance abuse and tobacco cessation discussed in detail.15 mins Acute hypoxic respiratory failure PUI Covid Patient received 2 vaccinations Covid swab negative Sepsis secondary to community acquired pneumonia Azithromycin and ceftriaxone Blood cultures are pending End-stage renal disease Nephrology consulted Dialysis as scheduled Hypertensive urgency Hydralazine IV as needed Restart all hypertensive medications Nicotine dependence Nicotine patch Marijuana abuse Stressed abstinence Anemia of chronic disease Disposition: TO HOME OR SELFCARE Final Discharge Diagnosis (Prints w/discharge instructions): Hypertensive urgency Time spent for discharge: 35 minutes Core Measure Documentation - Palliative Care Palliative Care/ Comfort Measures: Not Applicable - Core Measures Any of the following diagnoses?: none Exam - Physical Exam Narrative exam: VITAL SIGNS: Reviewed. GENERAL: The patient appears normally developed, Vital signs as documented. HEAD: No signs of head trauma. EYES: Pupils are equal. Extraocular motions intact. EARS: Hearing grossly intact. MOUTH: Oropharynx is normal. NECK: No adenopathy, no JVD. CHEST: Chest with clear breath sounds bilaterally. No wheezes, rales, or rhonchi. CARDIAC: Regular rate and rhythm. S1 and S2, without murmurs, gallops, or rubs. VASCULAR: No Edema. Fistula to right upper extremity for HD peripheral pulses normal and equal in all extremities. ABDOMEN: Soft, non tender and non distended. No rebound or guarding, and no masses palpated. Bowel Sounds normal. MUSCULOSKELETAL: Good range of motion of all major joints. Extremities without clubbing, cyanosis or edema. NEUROLOGIC EXAM: Alert and oriented x 3 No focal sensory or strength deficits. Speech normal. Follows commands. PSYCHIATRIC: Mood normal. SKIN: detail exam as documented in skin assessment - Constitutional Vitals: Temp Pulse Resp BP Pulse Ox 97.7 F 85 18 195/90 95 08/15/20 05:32 08/15/20 08:26 08/15/20 06:26 08/15/20 08:26 08/15/20 05:32 Plan Activity: advance as tolerated, fall precautions Diet: low salt, renal Special Instructions: record daily weights, record daily BP diary (take diary to PCP/DIETARY SERVER), smoking cessation Follow up with: DARCI ROOT MD [Primary Care Provider] - 7 Days FLORIAN TAVAREZ MD [Staff Physician] - 3 Days Prescriptions: NIFEdipine XL [Procardia Xl] 90 mg PO QDAY #30 tablet
[2020-08-15 15:25] VITALS: BP 177/97
== END 2020-08-15 17:39 | disposition home or self-care (01) ==
LOC: ED 06:50 → 3A 09:52
PROVIDERS: ADMIT Family Medicine; ATTEND Internal Medicine
DX: A41.9 Sepsis, unspecified organism (principal); Z20.822 Contact with and (suspected) exposure to COVID-19; J18.9 Pneumonia, unspecified organism; J96.01 Acute respiratory failure with hypoxia; I12.0 Hypertensive chronic kidney disease with stage 5 chronic kidney disease or end stage renal disease; N18.6 End stage renal disease; I16.0 Hypertensive urgency; K21.9 Gastro-esophageal reflux disease without esophagitis; G47.30 Sleep apnea, unspecified; D64.9 Anemia, unspecified; F12.10 Cannabis abuse, uncomplicated; Z87.891 Personal history of nicotine dependence; Z79.82 Long term (current) use of aspirin; Z79.899 Other long term (current) drug therapy
CPT/HCPCS: 36415; 71046; 80048; 80053; 80061; 82728; 82947; 83615; 84145; 84484; 85025; 85027; 85379; 85610; 85730; 86140; 87040; 93005; 96365; 96367; 96372; 96375; 99285; G0257; G0378; J0360; J0456; J0696; J1644; U0003

== ENCOUNTER 2021-03-29 11:45 | Emergency (ER) | payer MEDICARE ==
--- NOTE | 2021-03-29 12:09 | Emergency Department Report ---
ED General Adult HPI - General Chief complaint: Recheck/Abnormal Lab/Rx Stated complaint: LOW H &H PUI?: No Time Seen by Provider: 03/29/21 11:51 Source: patient Mode of arrival: Ambulatory Limitations: No Limitations - History of Present Illness Initial comments: 50 yo AA male sent to ER sp HD treatment today for hgb of 7. Endorses sob. Denies cp. No headache. No fever or chills. No rapid heart rate. No abd pain. No dark stools. Pt had his full HD treatment today- and tolerated well. Pt reports clearance only on HD- he does make some urine. denies dark or bloody stools denies bloody vomitus -: Gradual Improves with: none Worsens with: none Associated Symptoms: denies other symptoms, shortness of breath Treatments Prior to Arrival: none - Related Data Previous Rx's Medication Instructions Recorded Last Taken Type Calcium Acetate [Phoslo] 1,334 mg PO TIDWM #60 capsule 01/28/18 Unknown Rx Albuterol Mdi (or & Nicu Only) 2 puff IH QID PRN #1 each 03/11/19 Unknown Rx [ProAir HFA Inhaler] Capsaicin 0.075% [Zostrix Hp 1 applicatio TP TID PRN #1 tube 10/30/19 Unknown Rx 0.075%] Aspirin EC [Halfprin EC] 81 mg PO QDAY #30 tablet. 07/26/20 Unknown Rx Furosemide [Lasix TAB] 80 mg PO QDAY #30 tablet 07/26/20 Unknown Rx Losartan [Cozaar] 100 mg PO QDAY #30 tablet 07/26/20 Unknown Rx carvediloL [Coreg] 25 mg PO BID@0800,1700 #60 tablet 07/26/20 Unknown Rx hydrALAZINE [Apresoline TAB] 100 mg PO Q8HR #90 tab 07/26/20 Unknown Rx NIFEdipine XL [Procardia Xl] 90 mg PO QDAY #30 tablet 08/15/20 Unknown Rx Pantoprazole [Protonix] 40 mg PO BID #60 tablet 03/29/21 Unknown Rx Allergies Allergy/AdvReac Type Severity Reaction Status Date / Time No Known Allergies Allergy Verified 03/29/21 11:46 ED Review of Systems ROS: Stated complaint: LOW H &H Other details as noted in HPI Comment: All other systems reviewed and negative ED Past Medical Hx - Past Medical History Hx Hypertension: Yes Hx CVA: No Hx Heart Attack/AMI: No Hx Congestive Heart Failure: No Hx Diabetes: No Hx Deep Vein Thrombosis: No Hx Pulmonary Embolism: No Hx GERD: Yes Hx Liver Disease: No Hx Renal Disease: Yes (ARF-HD 2018 T,Thur,Sat) Hx of Cancer: No Hx Sickle Cell Disease: No Hx Arthritis: No Hx Headaches / Migraines: No Hx Seizures: No Hx Kidney Stones: No Hx Psychiatric Treatment: No Hx Asthma: No Hx COPD: No Hx Tuberculosis: No Hx Dementia: No Hx HIV: No Additional medical history: sleep apnea, diverticulitis; gerd; a/c anemia - gets fe on HD; egd and colonoscopy in 2018- see report - Surgical History Past Surgical History?: Yes Additional Surgical History: fistula right upper arm - Family History Family history: other (mom dec renal dz/dm; dad dec ? cause ) - Social History Smoking Status: Current Every Day Smoker Substance Use Type: Marijuana - Medications Home Medications: Home Medications Medication Instructions Recorded Confirmed Last Taken Type Calcium Acetate [Phoslo] 1,334 mg PO TIDWM #60 capsule 01/28/18 07/24/20 Unknown Rx Albuterol Mdi (or & Nicu Only) 2 puff IH QID PRN #1 each 03/11/19 07/24/20 Unknown Rx [ProAir HFA Inhaler] Capsaicin 0.075% [Zostrix Hp 1 applicatio TP TID PRN #1 tube 10/30/19 07/24/20 Unknown Rx 0.075%] Aspirin EC [Halfprin EC] 81 mg PO QDAY #30 tablet. 07/26/20 Unknown Rx Furosemide [Lasix TAB] 80 mg PO QDAY #30 tablet 07/26/20 Unknown Rx Losartan [Cozaar] 100 mg PO QDAY #30 tablet 07/26/20 Unknown Rx carvediloL [Coreg] 25 mg PO BID@0800,1700 #60 tablet 07/26/20 Unknown Rx hydrALAZINE [Apresoline TAB] 100 mg PO Q8HR #90 tab 07/26/20 Unknown Rx NIFEdipine XL [Procardia Xl] 90 mg PO QDAY #30 tablet 08/15/20 Unknown Rx Pantoprazole [Protonix] 40 mg PO BID #60 tablet 03/29/21 Unknown Rx ED Physical Exam - General Limitations: No Limitations General appearance: alert, in no apparent distress - Head Head exam: Present: atraumatic, normocephalic - Eye Eye exam: Present: normal appearance, EOMI, scleral icterus - ENT ENT exam: Present: mucous membranes dry - Neck Neck exam: Present: normal inspection - Respiratory Respiratory exam: Present: normal lung sounds bilaterally. Absent: respiratory distress - Cardiovascular Cardiovascular Exam: Present: regular rate, normal rhythm. Absent: systolic murmur, diastolic murmur, rubs, gallop - GI/Abdominal GI/Abdominal exam: Present: soft, normal bowel sounds - Rectal Rectal exam: Present: deferred - Extremities Exam Extremities exam: Present: normal inspection - Back Exam Back exam: Present: normal inspection - Neurological Exam Neurological exam: Present: alert, oriented X3 - Psychiatric Psychiatric exam: Present: normal affect, normal mood - Skin Skin exam: Present: warm, dry, intact, normal color. Absent: rash ED Course Vital Signs 03/29/21 03/29/21 03/29/21 11:49 11:51 12:52 Temperature 98.9 F Pulse Rate 78 79 Respiratory 20 18 Rate Blood Pressure 160/64 Blood Pressure 178/79 [Left] O2 Sat by Pulse 96 95 96 Oximetry - Reevaluation(s) Reevaluation #1: 03/29/21 14:19 home rx nifedipine ER 90 daily coreg 25 daily lasix 80 daily losartan 40 daily motrin prn hydralazine 100 daily ED Medical Decision Making - Lab Data Result diagrams: 03/29/21 12:10 03/29/21 12:10 - EKG Data -: EKG Interpreted by Nv EKG shows normal: sinus rhythm Rate: normal - EKG Data When compared to previous EKG there are: no significant change Interpretation: no acute changes - Radiology Data Radiology results: report reviewed, image reviewed [facility] - Medical Decision Making Lab Results 03/29/21 03/29/21 03/29/21 Range/Units 12:10 12:10 12:10 WBC 6.5 (4.5-11.0) K/mm3 RBC 2.04 L (3.65-5.03) M/mm3 Hgb 7.3 L (11.8-15.2) gm/dl Hct 21.4 L (35.5-45.6) % MCV 105 H (84-94) fl MCH 36 H (28-32) pg MCHC 34 (32-34) % RDW 14.2 (13.2-15.2) % Plt Count 207 (140-440) K/mm3 Lymph % (Auto) 28.3 (13.4-35.0) % Treasure % (Auto) 7.5 H (0.0-7.3) % Eos % (Auto) 2.5 (0.0-4.3) % Baso % (Auto) 1.8 (0.0-1.8) % Lymph # (Auto) 1.8 (1.2-5.4) K/mm3 Treasure # (Auto) 0.5 (0.0-0.8) K/mm3 Eos # (Auto) 0.2 (0.0-0.4) K/mm3 Baso # (Auto) 0.1 (0.0-0.1) K/mm3 Seg Neutrophils % 59.9 (40.0-70.0) % Seg Neutrophils # 3.9 (1.8-7.7) K/mm3 Percent Retic 1.10 (0.78-2.58) % PT (12.2-14.9) Sec. INR (0.87-1.13) APTT (24.2-36.6) Sec. Sodium 139 (137-145) mmol/L Potassium 4.0 (3.6-5.0) mmol/L Chloride 94.8 L (98-107) mmol/L Carbon Dioxide 30 (22-30) mmol/L Anion Gap 18 mmol/L BUN 17 (9-20) mg/dL Creatinine 5.0 H (0.8-1.3) mg/dL Estimated GFR 15 ml/min BUN/Creatinine Ratio 3 % Glucose 88 (75-100) mg/dL Calcium 9.3 (8.4-10.2) mg/dL Phosphorus 3.30 (2.5-4.5) mg/dL Magnesium 2.20 (1.7-2.3) mg/dL Iron (49-181) ug/dL TIBC (250-450) mcg/dL Ferritin (30.0-300.0) ng/mL Total Bilirubin 0.50 (0.1-1.2) mg/dL AST 22 (5-40) units/L ALT 16 (7-56) units/L Alkaline Phosphatase 45 (35-129) units/L Troponin T (0.00-0.029) ng/mL Total Protein 7.6 (6.3-8.2) g/dL Albumin 4.3 (3.9-5) g/dL Albumin/Globulin Ratio 1.3 % Blood Type Antibody Screen 03/29/21 03/29/21 03/29/21 Range/Units 12:10 12:10 12:10 WBC (4.5-11.0) K/mm3 RBC (3.65-5.03) M/mm3 Hgb (11.8-15.2) gm/dl Hct (35.5-45.6) % MCV (84-94) fl MCH (28-32) pg MCHC (32-34) % RDW (13.2-15.2) % Plt Count (140-440) K/mm3 Lymph % (Auto) (13.4-35.0) % Treasure % (Auto) (0.0-7.3) % Eos % (Auto) (0.0-4.3) % Baso % (Auto) (0.0-1.8) % Lymph # (Auto) (1.2-5.4) K/mm3 Treasure # (Auto) (0.0-0.8) K/mm3 Eos # (Auto) (0.0-0.4) K/mm3 Baso # (Auto) (0.0-0.1) K/mm3 Seg Neutrophils % (40.0-70.0) % Seg Neutrophils # (1.8-7.7) K/mm3 Percent Retic (0.78-2.58) % PT 13.3 (12.2-14.9) Sec. INR 0.91 (0.87-1.13) APTT 37.8 H (24.2-36.6) Sec. Sodium (137-145) mmol/L Potassium (3.6-5.0) mmol/L Chloride (98-107) mmol/L Carbon Dioxide (22-30) mmol/L Anion Gap mmol/L BUN (9-20) mg/dL Creatinine (0.8-1.3) mg/dL Estimated GFR ml/min BUN/Creatinine Ratio % Glucose (75-100) mg/dL Calcium (8.4-10.2) mg/dL Phosphorus (2.5-4.5) mg/dL Magnesium (1.7-2.3) mg/dL Iron 82 (49-181) ug/dL TIBC 247 L (250-450) mcg/dL Ferritin 1249.0 H (30.0-300.0) ng/mL Total Bilirubin (0.1-1.2) mg/dL AST (5-40) units/L ALT (7-56) units/L Alkaline Phosphatase (35-129) units/L Troponin T 0.041 H (0.00-0.029) ng/mL Total Protein (6.3-8.2) g/dL Albumin (3.9-5) g/dL Albumin/Globulin Ratio % Blood Type Antibody Screen 03/29/21 Range/Units 12:23 WBC (4.5-11.0) K/mm3 RBC (3.65-5.03) M/mm3 Hgb (11.8-15.2) gm/dl Hct (35.5-45.6) % MCV (84-94) fl MCH (28-32) pg MCHC (32-34) % RDW (13.2-15.2) % Plt Count (140-440) K/mm3 Lymph % (Auto) (13.4-35.0) % Treasure % (Auto) (0.0-7.3) % Eos % (Auto) (0.0-4.3) % Baso % (Auto) (0.0-1.8) % Lymph # (Auto) (1.2-5.4) K/mm3 Treasure # (Auto) (0.0-0.8) K/mm3 Eos # (Auto) (0.0-0.4) K/mm3 Baso # (Auto) (0.0-0.1) K/mm3 Seg Neutrophils % (40.0-70.0) % Seg Neutrophils # (1.8-7.7) K/mm3 Percent Retic (0.78-2.58) % PT (12.2-14.9) Sec. INR (0.87-1.13) APTT (24.2-36.6) Sec. Sodium (137-145) mmol/L Potassium (3.6-5.0) mmol/L Chloride (98-107) mmol/L Carbon Dioxide (22-30) mmol/L Anion Gap mmol/L BUN (9-20) mg/dL Creatinine (0.8-1.3) mg/dL Estimated GFR ml/min BUN/Creatinine Ratio % Glucose (75-100) mg/dL Calcium (8.4-10.2) mg/dL Phosphorus (2.5-4.5) mg/dL Magnesium (1.7-2.3) mg/dL Iron (49-181) ug/dL TIBC (250-450) mcg/dL Ferritin (30.0-300.0) ng/mL Total Bilirubin (0.1-1.2) mg/dL AST (5-40) units/L ALT (7-56) units/L Alkaline Phosphatase (35-129) units/L Troponin T (0.00-0.029) ng/mL Total Protein (6.3-8.2) g/dL Albumin (3.9-5) g/dL Albumin/Globulin Ratio % Blood Type O POSITIVE Antibody Screen Negative Vital Signs 03/29/21 03/29/21 03/29/21 11:49 11:51 12:52 Temperature 98.9 F Pulse Rate 78 79 Respiratory 20 18 Rate Blood Pressure 160/64 Blood Pressure 178/79 [Left] O2 Sat by Pulse 96 95 96 Oximetry 12 lead noted trop noted- chronic elevation echo 1 y ago normal biV function no hx cath/stress test no chest pain chest xray noted- no volume overload labs noted hgb trend has been labile ugi and lgi series 2018- see report guiac pos brown stool pt does take motrin for pain at home- we discussed cessation at length staffed with Dr Marrufo staffed with Dr Johnson GI consulted and they will see pt in the office; the pt is know to them- recommendation: PPI BID, no NSAIDS and office follow up discussed all of the above with pt and he verbalizes understanding dc home with dc plan of care including diet, activity, follow up, PPI and GI evaluation. On dc VSS and pt non ill appearing. Taking PO - Differential Diagnosis ro acute/chronic amemia; gib; symptomatic anemia Critical care attestation.: If time is entered above; I have spent that time in minutes in the direct care of this critically ill patient, excluding procedure time. ED Disposition Clinical Impression: ESRD (end stage renal disease) on dialysis Renal failure Qualifiers: Renal failure chronicity: acute on chronic Chronic kidney disease stage: on chronic dialysis Anemia Qualifiers: Anemia type: unspecified type Qualified Code(s): D64.9 - Anemia, unspecified Disposition: 01 HOME / SELF CARE / HOMELESS Is pt being admited?: No Does the pt Need Aspirin: No Condition: Stable Additional Instructions: TAKE PROTONIX PRESCRIBED TODAY NO MOTRIN/ASPIRIN OR OTHER IBRUPROFEN PRODUCTS FOLLOW UP WITH GI [facility] REFERRAL BELOW Prescriptions: Pantoprazole [Protonix] 40 mg PO BID #60 tablet Referrals: ANNA VERDUZCO RN [Primary Care Provider] - 3-5 Days ABRIL BEVERLY MD [Staff Physician] - 3-5 Days Time of Disposition: 14:17
[2021-03-29 12:53] VITALS: BP 178/79
[2021-03-29 13:20] LABS: Basophils # (Auto) 0.1 K/mm3 (0.0-0.1); Basophils % (Auto) 1.8 % (0.0-1.8); Eosinophils # (Auto) 0.2 K/mm3 (0.0-0.4); Eosinophils % (Auto) 2.5 % (0.0-4.3); Hematocrit 21.4 % (35.5-45.6); Hemoglobin 7.3 gm/dl (11.8-15.2); Lymphocytes # (Auto) 1.8 K/mm3 (1.2-5.4); Lymphocytes % (Auto) 28.3 % (13.4-35.0); Mean Corpuscular HGB Conc 34 % (32-34); Mean Corpuscular Volume 105 fl (84-94); Monocytes # (Auto) 0.5 K/mm3 (0.0-0.8); Monocytes % (Auto) 7.5 % (0.0-7.3); Platelet Count 207 K/mm3 (140-440); Red Blood Count 2.04 M/mm3 (3.65-5.03); Red Cell Distribution Width 14.2 % (13.2-15.2)
[2021-03-29 13:37] LABS: INR 0.91 (0.87-1.13)
[2021-03-29 13:39] LABS: Partial Thromboplastin Time 37.8 Sec. (24.2-36.6)
[2021-03-29 14:03] LABS: Albumin 4.3 g/dL (3.9-5); Calcium 9.3 mg/dL (8.4-10.2)
--- NOTE | 2021-03-29 15:01 | XRay Report ---
CHEST 2 VIEWS INDICATION / CLINICAL INFORMATION: sob. COMPARISON: 2 views of the chest from 08/14/2020. FINDINGS: SUPPORT DEVICES: None. HEART / MEDIASTINUM: Stable. LUNGS / PLEURA: Right lower lobe airspace opacities are present. The lungs are otherwise clear. No si gnificant pleural effusion. No pneumothorax. ADDITIONAL FINDINGS: No significant additional findings. IMPRESSION: Suspected right pneumonia without other acute findings. Signer Name: Vladimir Wray MD Signed: 03/29/2021 2:56 PM Workstation Name: [id number]
[2021-03-29] MEDS ORDERED: PANTOPRAZOLE 40 MG INJ IV ONE (15:10)
[2021-03-29 16:07] LABS: Chol/HDL Ratio 2.03 %
--- NOTE | 2021-03-30 13:08 | Electrocardiograph Report ---
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
== END 2021-03-29 15:36 | disposition home or self-care (01) ==
LOC: ED 11:45
DX: I12.0 Hypertensive chronic kidney disease with stage 5 chronic kidney disease or end stage renal disease (principal); Z99.2 Dependence on renal dialysis; N19 Unspecified kidney failure; D64.9 Anemia, unspecified; K21.9 Gastro-esophageal reflux disease without esophagitis; G47.30 Sleep apnea, unspecified; Z98.890 Other specified postprocedural states; F17.200 Nicotine dependence, unspecified, uncomplicated; F12.90 Cannabis use, unspecified, uncomplicated
CPT/HCPCS: 36415; 71046; 80053; 80061; 82728; 83550; 83735; 83880; 84100; 84484; 85025; 85045; 85610; 85730; 86850; 86900; 86901; 93005; 96374; 99284; C9113

== ENCOUNTER 2021-05-04 22:37 | Emergency (ER) | payer MEDICARE ==
--- NOTE | 2021-05-04 23:54 | Emergency Department Report ---
ED General Adult HPI - General Chief complaint: Dyspnea/Respdistress Stated complaint: WEAKNESS Time Seen by Provider: 05/04/21 23:42 Source: patient Mode of arrival: Ambulatory Limitations: No Limitations - History of Present Illness Initial comments: Patient presents because he does not feel well. He has had shortness of breath associate with nausea and vomiting. He states that he just feels weak all over. He denies chest pain. He has no blurry vision or double vision. There has been no fevers or chills. Patient denies hematemesis or coffee-ground emesis. There is no melenic stool. He has not been around anyone that has been ill lately. He has not been on antibiotics lately. He does admit that he did not go to dialysis . He was dialyzed Friday. He is supposed to be dialyzed Friday, , and Friday. He was on a fishing trip and did not go to dialysis. He believes that that has contributed to why he does not feel well today. - Related Data Previous Rx's Medication Instructions Recorded Last Taken Type Calcium Acetate [Phoslo] 1,334 mg PO TIDWM #60 capsule 01/28/18 Unknown Rx Albuterol Mdi (or & Nicu Only) 2 puff IH QID PRN #1 each 03/11/19 Unknown Rx [ProAir HFA Inhaler] Capsaicin 0.075% [Zostrix Hp 1 applicatio TP TID PRN #1 tube 10/30/19 Unknown Rx 0.075%] Aspirin EC [Halfprin EC] 81 mg PO QDAY #30 tablet 07/26/20 Unknown Rx Furosemide [Lasix TAB] 80 mg PO QDAY #30 tablet 07/26/20 Unknown Rx Losartan [Cozaar] 100 mg PO QDAY #30 tablet 07/26/20 Unknown Rx carvediloL [Coreg] 25 mg PO BID@0800,1700 #60 tablet 07/26/20 Unknown Rx hydrALAZINE [Apresoline TAB] 100 mg PO Q8HR #90 tab 07/26/20 Unknown Rx NIFEdipine XL [Procardia Xl] 90 mg PO QDAY #30 tablet 08/15/20 Unknown Rx Pantoprazole [Protonix] 40 mg PO BID #60 tablet 03/29/21 Unknown Rx Allergies Allergy/AdvReac Type Severity Reaction Status Date / Time No Known Allergies Allergy Verified 03/29/21 11:46 ED Review of Systems ROS: Stated complaint: WEAKNESS Other details as noted in HPI Comment: All other systems reviewed and negative Constitutional: denies: fever Eyes: denies: vision change ENT: denies: epistaxis Respiratory: denies: cough Cardiovascular: denies: chest pain Endocrine: denies: unexplained weight loss Gastrointestinal: as per HPI Genitourinary: denies: dysuria (He does still make urine) Musculoskeletal: denies: back pain Skin: denies: rash Neurological: denies: headache Hematological/Lymphatic: denies: easy bruising ED Past Medical Hx - Past Medical History Previous Medical History?: Yes Hx Hypertension: Yes Hx CVA: No Hx Heart Attack/AMI: No Hx Congestive Heart Failure: No Hx Diabetes: No Hx Deep Vein Thrombosis: No Hx Pulmonary Embolism: No Hx GERD: Yes Hx Liver Disease: No Hx Renal Disease: Yes (ARF-HD 2017 T,Thur,Sat) Hx Sickle Cell Disease: No Hx Arthritis: No Hx Headaches / Migraines: No Hx Seizures: No Hx Kidney Stones: No Hx Psychiatric Treatment: No Hx Asthma: No Hx COPD: No Hx Tuberculosis: No Hx Dementia: No Hx HIV: No Additional medical history: sleep apnea, diverticulitis; gerd; a/c anemia - gets fe on HD; egd and colonoscopy in 2018- see report - Surgical History Past Surgical History?: Yes Additional Surgical History: fistula right upper arm - Family History Family history: hypertension - Social History Smoking Status: Current Every Day Smoker (We discussed tobacco cessation x3 minutes) - Medications Home Medications: Home Medications Medication Instructions Recorded Confirmed Last Taken Type Calcium Acetate [Phoslo] 1,334 mg PO TIDWM #60 capsule 01/28/18 07/24/20 Unknown Rx Albuterol Mdi (or & Nicu Only) 2 puff IH QID PRN #1 each 03/11/19 07/24/20 Unknown Rx [ProAir HFA Inhaler] Capsaicin 0.075% [Zostrix Hp 1 applicatio TP TID PRN #1 tube 10/30/19 07/24/20 Unknown Rx 0.075%] Aspirin EC [Halfprin EC] 81 mg PO QDAY #30 tablet. 07/26/20 Unknown Rx Furosemide [Lasix TAB] 80 mg PO QDAY #30 tablet 07/26/20 Unknown Rx Losartan [Cozaar] 100 mg PO QDAY #30 tablet 07/26/20 Unknown Rx carvediloL [Coreg] 25 mg PO BID@0800,1700 #60 tablet 07/26/20 Unknown Rx hydrALAZINE [Apresoline TAB] 100 mg PO Q8HR #90 tab 07/26/20 Unknown Rx NIFEdipine XL [Procardia Xl] 90 mg PO QDAY #30 tablet 08/15/20 Unknown Rx Pantoprazole [Protonix] 40 mg PO BID #60 tablet 03/29/21 Unknown Rx ED Physical Exam - General Limitations: No Limitations, Other (Pulse ox noted and hypoxic. This improves with oxygen.) General appearance: alert, in distress (Mild) - Head Head exam: Present: atraumatic, normocephalic - Eye Eye exam: Present: normal appearance, EOMI. Absent: scleral icterus - ENT ENT exam: Present: normal orophraynx, normal external ear exam - Neck Neck exam: Present: normal inspection. Absent: meningismus - Respiratory Respiratory exam: Present: respiratory distress (Mild), rales (Bilateral), decreased breath sounds - Cardiovascular Cardiovascular Exam: Present: regular rate, normal rhythm - GI/Abdominal GI/Abdominal exam: Present: soft. Absent: distended - Extremities Exam Extremities exam: Present: normal capillary refill, other (AV fistula in the right upper extremity with good thrill and bruit). Absent: calf tenderness - Back Exam Back exam: Absent: CVA tenderness (R), CVA tenderness (L) - Neurological Exam Neurological exam: Present: alert, oriented X3, CN II-XII intact. Absent: motor sensory deficit - Psychiatric Psychiatric exam: Present: normal affect, normal mood - Skin Skin exam: Present: warm, dry ED Course Vital Signs 05/04/21 05/05/21 23:05 02:20 Temperature 98.8 F Pulse Rate 95 H 80 Respiratory 18 16 Rate Blood Pressure 188/87 Blood Pressure 146/83 [Left] O2 Sat by Pulse 93 95 Oximetry - Reevaluation(s) Reevaluation #1: 05/04/21 23:54 EKG was noted. Labs ordered. Reevaluation #2: 05/05/21 02:48 Labs have been noted. EKG and x-ray was reviewed. Pulse ox on room air is 100%. Patient was discharged. ED Medical Decision Making - Lab Data Result diagrams: 05/04/21 23:33 05/04/21 23:33 Rhythm strip: Normal sinus rhythm without ectopy per monitor observe 10 seconds. - Radiology Data Radiology results: report reviewed - Medical Decision Making Patient presents feeling poorly. He has missed dialysis. He does not have acute hyperkalemia or hypoxia that would require admission or emergent dialysis. It is 2 hours from his scheduled dialysis time. He will be discharged with referral to his regular center this morning. He does not have any other medical indication for admission. He does have a slight troponin leak which is chronic based on old lab reviews. There is no evidence of pneumothorax. He does not appear to be septic or toxic. He does not have intractable vomiting. There is no peritoneal finding. Critical Care Time: No Critical care attestation.: If time is entered above; I have spent that time in minutes in the direct care of this critically ill patient, excluding procedure time. ED Disposition Clinical Impression: ESRD on dialysis Pulmonary edema Qualifiers: Chronicity: acute Qualified Code(s): J81.0 - Acute pulmonary edema Disposition: 01 HOME / SELF CARE / HOMELESS Is pt being admited?: No Condition: Stable Instructions: Dialysis, Pulmonary Edema, [id number], Pulmonary Edema (ED) Additional Instructions: Go to dialysis at 5:00 this morning. Return for problems. Use the inhaler as needed. Referrals: PRIMARY CARE, [Referring] - 3-5 Days
[2021-05-04 23:55] LABS: Basophils # (Auto) 0.1 K/mm3 (0.0-0.1); Basophils % (Auto) 1.7 % (0.0-1.8); Eosinophils # (Auto) 0.1 K/mm3 (0.0-0.4); Eosinophils % (Auto) 2.2 % (0.0-4.3); Hematocrit 34.3 % (35.5-45.6); Hemoglobin 11.2 gm/dl (11.8-15.2); Lymphocytes # (Auto) 0.6 K/mm3 (1.2-5.4); Lymphocytes % (Auto) 10.4 % (13.4-35.0); Mean Corpuscular HGB Conc 33 % (32-34); Mean Corpuscular Volume 110 fl (84-94); Monocytes # (Auto) 0.3 K/mm3 (0.0-0.8); Monocytes % (Auto) 4.5 % (0.0-7.3); Platelet Count 215 K/mm3 (140-440); Red Blood Count 3.11 M/mm3 (3.65-5.03); Red Cell Distribution Width 15.8 % (13.2-15.2)
--- NOTE | 2021-05-05 00:12 | XRay Report ---
CHEST 2 VIEWS INDICATION / CLINICAL INFORMATION: dyspnea. COMPARISON: Chest x-ray 03/29/2021 FINDINGS: SUPPORT DEVICES: None. HEART / MEDIASTINUM: Borderline cardiomegaly stable. LUNGS / PLEURA: Opacities within the right infrahilar lung have minimally improved most noticeably ov erlying the mid right hemidiaphragm. No pneumothorax. ADDITIONAL FINDINGS: No significant additional findings. IMPRESSION: 1. Minimal improvement in right basilar lung opacities. Lungs otherwise remain clear. Signer Name: Heladio Ponce II, MD Signed: 05/05/2021 12:07 AM Workstation Name: [id number]
[2021-05-05 00:13] LABS: Albumin 4.4 g/dL (3.9-5); Calcium 9.4 mg/dL (8.4-10.2)
[2021-05-05 02:21] VITALS: BP 146/83
[2021-05-05] MEDS ORDERED: ALBUTEROL 8.5 GM MDI INHALATION IH ONE (02:47)
[2021-05-05 02:56] LABS: Chol/HDL Ratio 2.8 %
[2021-05-05] MEDS ORDERED: ALBUTEROL 2.5 MG/3 ML NEBU IH NR (03:00)
--- NOTE | 2021-05-06 09:53 | Electrocardiograph Report ---
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
== END 2021-05-05 04:26 | disposition home or self-care (01) ==
LOC: ED 22:37
DX: I12.0 Hypertensive chronic kidney disease with stage 5 chronic kidney disease or end stage renal disease (principal); N18.6 End stage renal disease; J81.0 Acute pulmonary edema; Z99.2 Dependence on renal dialysis; K21.9 Gastro-esophageal reflux disease without esophagitis; Z72.89 Other problems related to lifestyle; Z79.899 Other long term (current) drug therapy
CPT/HCPCS: 36415; 71046; 80053; 80061; 83880; 84484; 85025; 93005; 93010; 99284